=== PATIENT | female | born 1965 | race Caucasian/White ===

== ENCOUNTER → 2017-06-11 | Outpatient (CLI) | payer OTHER ==
--- NOTE | 2017-06-11 10:47 | MM ---
Reason for exam: additional evaluation requested from prior study. Last mammogram was performed 1 year ago. History: Patient is postmenopausal and has history of breast cancer at age 45. Benign US RT VAD breast biopsy of the right breast, November 22, 2011. Benign US left guided VAD of the left breast, April 11, 2011. Malignant US right guided VAD of the right breast, February 15, 2011. Lumpectomy of the right breast, 2010. Chemotherapy, 2010. Radiation therapy of the right breast, 2010. Physical Findings: Nurse did not find any significant physical abnormalities on exam. MG 3D Diag Mammo W/Cad MARIA LUISA Bilateral CC and MLO view(s) were taken. Prior study comparison: June 04, 2016, bilateral MG 3d diag mammo w/cad MARIA LUISA. June 02, 2015, bilateral MG diagnostic mammo w CAD MARIA LUISA. The breast tissue is heterogeneously dense. This may lower the sensitivity of mammography. Post therapy changes on the right breast. These results were verbally communicated with the patient and result sheet given to the patient on 06/11/17. ASSESSMENT: Benign, BI-RAD 2 RECOMMENDATION: Follow-up diagnostic mammogram of both breasts in 1 year.
== END ==
LOC: RADMAMWWP 08:20
PROVIDERS: ATTEND Family Medicine
DX: R92.2 Inconclusive mammogram (principal); Z85.3 Personal history of malignant neoplasm of breast
CPT/HCPCS: G0204; G0279

== ENCOUNTER → 2017-07-23 | Outpatient (CLI) | payer OTHER ==
[2017-07-23 07:53] LABS: Basophils % (A) 1 %; CH 29.6; CHCM 33.1; Eosinophils # (A) 0.1 k/uL (0-0.7); Eosinophils % (A) 2 %; HCT 43.2 % (34.0-46.0); HDW 2.25; HGB 14.1 gm/dL (11.4-16.0); Luc # (Auto) 0.19; Luc % (Auto) 3; Lymphocytes # (A) 2.9 k/uL (1.0-4.8); Lymphocytes % (A) 38 %; MCH 29.4 pg (25.0-35.0); MCHC 32.7 g/dL (31.0-37.0); MCV 89.9 fL (80.0-100.0); Mean Platelet Volume 7.6; Monocytes # (A) 0.3 k/uL (0-1.0); Monocytes % (A) 4 %; Neutrophils % (A) 53 %; RBC 4.81 m/uL (3.80-5.40); RDW 14.3 % (11.5-15.5); WBC 7.6 k/uL (3.8-10.6); WBC (Perox) 7.65
[2017-07-23 12:32] LABS: ALT 39 U/L (9-52); AST 25 U/L (14-36); Alkaline Phosphatase 107 U/L (38-126); Anion Gap 9 mmol/L; Blood Urea Nitrogen 15 mg/dL (7-17); Calcium 9.8 mg/dL (8.4-10.2); Carbon Dioxide 27 mmol/L (22-30); Chloride 106 mmol/L (98-107); Cholesterol 218 mg/dL (<200); Glucose 88 mg/dL (74-99); HDL Cholesterol 54 mg/dL (40-60); Non-African American GFR(MDRD) >60 (>60 ml/min/1.73 sqM); Potassium 5.1 mmol/L (3.5-5.1); Sodium 142 mmol/L (137-145); Total Bilirubin 0.5 mg/dL (0.2-1.3); Total Protein 7.3 g/dL (6.3-8.2)
[2017-07-23 13:20] LABS: Vitamin B12 376 pg/mL (239-931)
== END ==
LOC: LABWHC1 06:43
PROVIDERS: ATTEND Family Medicine
DX: E78.5 Hyperlipidemia, unspecified (principal); E55.9 Vitamin D deficiency, unspecified
CPT/HCPCS: 36415; 80053; 80061; 82306; 82607; 84439; 84443; 85025

== ENCOUNTER → 2018-06-19 | Outpatient (CLI) | payer OTHER ==
--- NOTE | 2018-06-20 15:09 | MM ---
Reason for exam: additional evaluation requested from prior study. Last mammogram was performed 1 year ago. History: Patient is postmenopausal and has history of breast cancer at age 45. Benign US RT VAD breast biopsy of the right breast, November 22, 2011. Benign US left guided VAD of the left breast, April 11, 2011. Malignant US right guided VAD of the right breast, February 15, 2011. Lumpectomy of the right breast, 2010. Chemotherapy, 2010. Radiation therapy of the right breast, 2010. Physical Findings: Nurse did not find any significant physical abnormalities on exam. MG 3D Diag Mammo W/Cad MARIA LUISA Bilateral CC and MLO view(s) were taken. Prior study comparison: June 11, 2017, bilateral MG 3d diag mammo w/cad MARIA LUISA. June 04, 2016, bilateral MG 3d diag mammo w/cad MARIA LUISA. June 02, 2015, bilateral MG diagnostic mammo w CAD MARIA LUISA. The breast tissue is heterogeneously dense. This may lower the sensitivity of mammography. Right breast post therapy change noted. Left biopsy marker noted. These results were verbally communicated with the patient and result sheet given to the patient on 06/19/18. ASSESSMENT: Benign, BI-RAD 2 RECOMMENDATION: Routine screening mammogram of both breasts in 1 year.
== END | disposition home or self-care (01) ==
LOC: RADMAMWWP 14:45
PROVIDERS: ATTEND Family Medicine
DX: R92.2 Inconclusive mammogram (principal)
CPT/HCPCS: 77062; 77066

== ENCOUNTER → 2018-08-06 | Outpatient (CLI) | payer OTHER ==
[2018-08-06 09:30] LABS: ALT 25 U/L (9-52); AST 24 U/L (14-36); Albumin 3.9 g/dL (3.5-5.0); Alkaline Phosphatase 99 U/L (38-126); Anion Gap 7 mmol/L; Blood Urea Nitrogen 17 mg/dL (7-17); Calcium 9.8 mg/dL (8.4-10.2); Carbon Dioxide 30 mmol/L (22-30); Chloride 105 mmol/L (98-107); Cholesterol 222 mg/dL (<200); Glucose 85 mg/dL (74-99); HDL Cholesterol 52 mg/dL (40-60); LDL Cholesterol,Calculated 148 mg/dL (0-99); Potassium 5.1 mmol/L (3.5-5.1); Sodium 142 mmol/L (137-145); Total Bilirubin 0.4 mg/dL (0.2-1.3); Total Protein 7.3 g/dL (6.3-8.2); Triglycerides 108 mg/dL (<150)
[2018-08-06 09:37] LABS: Basophils % (A) 1 %; Eosinophils # (A) 0.1 k/uL (0-0.7); Eosinophils % (A) 2 %; HCT 43.8 % (34.0-46.0); HGB 13.7 gm/dL (11.4-16.0); Lymphocytes # (A) 1.9 k/uL (1.0-4.8); Lymphocytes % (A) 29 %; MCH 27.9 pg (25.0-35.0); MCHC 31.2 g/dL (31.0-37.0); MCV 89.4 fL (80.0-100.0); Mean Platelet Volume 7.2; Monocytes # (A) 0.3 k/uL (0-1.0); Monocytes % (A) 5 %; Neutrophils # (A) 3.9 k/uL (1.3-7.7); Neutrophils % (A) 62 %; Platelet Count 276 k/uL (150-450); RDW 13.7 % (11.5-15.5); WBC 6.4 k/uL (3.8-10.6)
[2018-08-06 09:44] LABS: T4, Free (Free Thyroxine) 1.27 ng/dL (0.78-2.19)
[2018-08-06 09:59] LABS: Appearance,Urine Cloudy (Clear); Bacteria,Urine Occasional /hpf; Bilirubin,Urine Negative (Negative); Blood,Urine Negative (Negative); Color,Urine Yellow; Glucose,Urine (UA) Negative (Negative); Ketones,Urine Negative (Negative); Leukocyte Esterase,Urine Small (Negative); Mucus,Urine Rare /hpf; Nitrite,Urine Negative (Negative); Protein,Urine Negative (Negative); Specific Gravity,Urine 1.018 (1.001-1.035); Squamous Epithelial Cell,Urine 8 /hpf (0-4); Urobilinogen,Urine <2.0 mg/dL (<2.0); WBC,Urine 4 /hpf (0-5)
[2018-08-06 16:38] LABS: Vitamin D 25 Hydroxy 28.8 ng/mL (30.0-100.0)
[2018-08-06 16:47] LABS: Gliadin AB IgA, Unit 3.1 U/mL
[2018-08-06 20:04] LABS: Hemoglobin A1C 5.6 % (4.0-6.0)
== END | disposition home or self-care (01) ==
LOC: LABWHC1 08:12
PROVIDERS: ATTEND Family Medicine
DX: Z00.00 Encounter for general adult medical examination without abnormal findings (principal); K63.5 Polyp of colon; E78.5 Hyperlipidemia, unspecified
CPT/HCPCS: 36415; 80053; 80061; 81001; 82306; 82607; 83036; 83516; 84439; 84443; 85025

== ENCOUNTER → 2019-08-16 | Outpatient (CLI) | payer OTHER ==
--- NOTE | 2019-08-17 13:58 | MM ---
Reason for exam: additional evaluation requested from prior study. Last mammogram was performed 1 year and 2 months ago. History: Patient is postmenopausal and has history of breast cancer at age 45. Benign US RT VAD breast biopsy of the right breast, November 22, 2011. Benign US left guided VAD of the left breast, April 11, 2011. Malignant US right guided VAD of the right breast, February 15, 2011. Lumpectomy of the right breast, 2010. Chemotherapy, 2010. Radiation therapy of the right breast, 2010. Physical Findings: Nurse did not find any significant physical abnormalities on exam. MG 3D Diag Mammo W/Cad MARIA LUISA Bilateral CC and MLO view(s) were taken. Prior study comparison: June 19, 2018, bilateral MG 3d diag mammo w/cad MARIA LUISA. June 11, 2017, bilateral MG 3d diag mammo w/cad MARIA LUISA. The breast tissue is heterogeneously dense. This may lower the sensitivity of mammography. There is a 6mm mass at posterior depth 10-12cm from nipple in the upper outer quadrant. Bilateral biopsy markers. Post therapy change on the right. These results were verbally communicated with the patient and result sheet given to the patient on 08/16/19. ASSESSMENT: Incomplete: need additional imaging evaluation, BI-RAD 0 RECOMMENDATION: Ultrasound of the left breast.
--- NOTE | 2019-08-17 14:01 | USB ---
Reason for exam: additional evaluation requested from abnormal screening. History: Patient is postmenopausal and has history of breast cancer at age 45. Benign US RT VAD breast biopsy of the right breast, November 22, 2011. Benign US left guided VAD of the left breast, April 11, 2011. Malignant US right guided VAD of the right breast, February 15, 2011. Lumpectomy of the right breast, 2010. Chemotherapy, 2010. Radiation therapy of the right breast, 2010. US Breast Limited LT Left limited breast ultrasound including focal area of concern, retroareolar and axilla demonstrates a 0.4 x 0.7 x 0.4cm oval, cystic, complex lesion at 12 o'clock, biopsy recommended, probable correlate to mammographic finding, a 1.2 x 1.1 x 0.8cm nonenlarged lymph nodes at 1 o'clock and a 0.5 x 0.3 x 0.3cm oval, cystic, complex lesion at 3 o'clock, appears as a complicated cyst. These results were verbally communicated with the patient and result sheet given to the patient on 08/16/19. ASSESSMENT: Suspicious, BI-RAD 4 RECOMMENDATION: Ultrasound core biopsy of the left breast. Called Dr. Yee with mammographic findings. Biopsy scheduled for 09/06/19 at 2:00. PRELIMINARY REPORT CALLED AND FAXED TO DR. YEE ON 08/17/19.
== END | disposition home or self-care (01) ==
LOC: RADMAMWWP 07:52
PROVIDERS: ATTEND Family Medicine
DX: R92.8 Other abnormal and inconclusive findings on diagnostic imaging of breast (principal); Z85.3 Personal history of malignant neoplasm of breast
CPT/HCPCS: 77062; 77066

== ENCOUNTER → 2019-08-18 | Outpatient (CLI) | payer OTHER ==
[2019-08-18 09:27] LABS: Basophils % (A) 1 %; Eosinophils # (A) 0.2 k/uL (0-0.7); Eosinophils % (A) 3 %; HCT 43.7 % (34.0-46.0); HGB 13.5 gm/dL (11.4-16.0); Lymphocytes # (A) 1.8 k/uL (1.0-4.8); Lymphocytes % (A) 33 %; MCH 28.9 pg (25.0-35.0); MCV 93.5 fL (80.0-100.0); Mean Platelet Volume 7.2; Monocytes # (A) 0.3 k/uL (0-1.0); Monocytes % (A) 5 %; Neutrophils # (A) 3.1 k/uL (1.3-7.7); Neutrophils % (A) 56 %; Platelet Count 261 k/uL (150-450); RBC 4.67 m/uL (3.80-5.40); RDW 13.5 % (11.5-15.5); WBC 5.5 k/uL (3.8-10.6)
[2019-08-18 10:16] LABS: Appearance,Urine Clear (Clear); Bacteria,Urine Rare /hpf; Bilirubin,Urine Negative (Negative); Blood,Urine Negative (Negative); Color,Urine Yellow; Glucose,Urine (UA) Negative (Negative); Ketones,Urine Negative (Negative); Leukocyte Esterase,Urine Moderate (Negative); Mucus,Urine Rare /hpf; Nitrite,Urine Negative (Negative); PH, Urine 5.5 (5.0-8.0); Protein,Urine Negative (Negative); RBC,Urine 3 /hpf (0-5); Specific Gravity,Urine 1.015 (1.001-1.035); Squamous Epithelial Cell,Urine 7 /hpf (0-4); Urobilinogen,Urine <2.0 mg/dL (<2.0); WBC,Urine 1 /hpf (0-5)
[2019-08-18 16:26] LABS: CA27.29 Breast Ca Marker 38.1 U/mL (0.0-38.5)
[2019-08-18 16:51] LABS: African American GFR (CKD) 97.6 (60.0-200.0); Albumin 4.1 g/dL (3.80-4.90); Albumin/Globulin Ratio 1.58 (1.60-3.17); BUN/Creat Ratio 23.75 Ratio (12.00-20.00); Calcium 9.7 mg/dL (8.7-10.3); Globulin 2.6 g/dL (1.6-3.3); LDL Cholesterol,Calculated 170.4 mg/dL (0.0-131.0); Potassium 4.7 mmol/L (3.5-5.5); Total Bilirubin 0.3 mg/dL (0.3-1.2); Total Protein 6.7 g/dL (6.2-8.2); VLDL Calculation 18.6 mg/dL (5.00-40.00)
[2019-08-18 19:25] LABS: Hemoglobin A1C 5.5 % (4.0-6.0)
== END | disposition home or self-care (01) ==
LOC: LABWHC1 08:35
PROVIDERS: ATTEND Family Medicine
DX: Z00.00 Encounter for general adult medical examination without abnormal findings (principal); C50.211 Malignant neoplasm of upper-inner quadrant of right female breast; E78.5 Hyperlipidemia, unspecified
CPT/HCPCS: 36415; 80053; 80061; 81001; 82607; 83036; 84443; 85025; 86300

== ENCOUNTER → 2019-09-06 | Day surgery (SDC) | payer OTHER ==
[2019-09-06 13:32] VITALS: RESP 16; TEMP 97.9; BMI 28.3
[2019-09-06 14:41] VITALS: BP 113/79; PULSE 62
--- NOTE | 2019-09-06 14:55 | USB ---
ULTRASOUND GUIDED CORE BIOPSY LEFT BREAST: CLINICAL HISTORY: Request for biopsy of 12:00 nodule left breast FINDINGS: The procedure was explained to the patient. The risks, complications, benefits and alternatives were discussed and any questions were answered. Informed consent was obtained. Patient was placed supine on the ultrasound table and prepped and draped in the usual sterile fashion. Utilizing a 14-gauge core biopsy needle, five passes were made into the requested nodule. Surgical clip was placed post procedure. Repeat mammogram demonstrated ideal placement surgical clip. Patient was stable throughout the procedure. Pathology is pending. All elements of maximal barrier technique were utilized. IMPRESSION: 1. Successful ultrasound guided core biopsy of the left breast nodule. Pathology Results: Malignant LEFT BREAST, 12:00, ULTRASOUND GUIDED CORE BIOPSY: Infiltrating ductal carcinoma, Grade 2 ([place]). See note. Recommendation Surgical consult of the left breast. SHAWND
--- NOTE | 2019-09-07 07:33 | MM ---
Reason for exam: additional evaluation requested from abnormal screening. Last mammogram was performed 1 month ago. History: Patient is postmenopausal and has history of breast cancer at age 45. Benign US RT VAD breast biopsy of the right breast, November 22, 2011. Benign US left guided VAD of the left breast, April 11, 2011. Malignant US right guided VAD of the right breast, February 15, 2011. Lumpectomy of the right breast, 2010. Chemotherapy, 2010. Radiation therapy of the right breast, 2010. MG Diagnostic Mammo LT Wo CAD CC and ML view(s) were taken of the left breast. Prior study comparison: August 16, 2019, bilateral MG 3d diag mammo w/cad MARIA LUISA. June 19, 2018, bilateral MG 3d diag mammo w/cad MARIA LUISA. ASSESSMENT: Post procedure mammogram for marker placement RECOMMENDATION: Ultrasound of the left breast in 6 months. PENDING PATHOLOGY RESULTS.
== END ==
LOC: RADUSWWP 12:54
PROVIDERS: ATTEND Family Medicine
DX: C50.912 Malignant neoplasm of unspecified site of left female breast (principal)
CPT/HCPCS: 88305; 77065; 19083; A4648; J2001

== ENCOUNTER → 2019-09-16 | Outpatient (CLI) | payer OTHER ==
[2019-09-16 09:54] VITALS: BP 112/79; PULSE 75; RESP 18; TEMP 98; BMI 29.2
--- NOTE | 2019-09-16 11:15 | P.GSHP ---
History of Present Illness H&P Date: 09/16/19 Chief Complaint: left breast cancer The patient is a 54 year old white female diagnosed on February 2011 at the age of 45 with a tripple negative breast cancer. She had a lumpectomy followed by chemotherapy and radiation. She has had no recurrence of the breast cancer o n the right. She was told this was a stage I. The lymph nodes were not involved. She had a bilateral mammogram on August 16, and was told she needed additional views of the left breast. She had a biopsy on 09-06-19. The pathology revealed an invasive ductal carcinoma. This was grade 2. This is ER/SC positive and HER-2 negative. The patient does not feel anything in her breast. She had genetic testing done, BRCA 1 negative. She had additional testing done to Dr. Hernandez's office and these results will be back in approximately 2-3 weeks. She has no history of any trauma or infection the breast. No abnormal nipple discharge. No skin changes for which she is concerned. Family history: patient: breast cancer at 45 Hormonal History: menarche: 12 , breast fed: yes, first born at 26 menopausal since chemotherapy at 46 BCP: 1 year hormones: none Medical history: Negative Surgical history: 1. Right breast lumpectomy and sentinel node biopsy Social History: smoke: none alcohol: rare drugs: none - Constitutional Comment: hot flashes Constitutional: Reports sweats - EENT Eyes: denies blurred vision, denies pain Ears: deny: decreased hearing, tinnitus Ears, nose, mouth and throat: Denies headache, Denies sore throat - Breasts Breasts: bilateral: as per HPI - Cardiovascular Cardiovascular: Reports high blood pressure, Denies chest pain, Denies shortness of breath - Respiratory Respiratory: Denies cough, Denies 7 - Gastrointestinal Gastrointestinal: Denies abdominal pain, Denies diarrhea, Denies nausea, Denies vomiting - Genitourinary (Female) Genitourinary: Denies dysuria, Denies hematuria - Menstruation Menstruation: Reports postmenopausal - Musculoskeletal Musculoskeletal: Denies myalgias - Integumentary Integumentary: Denies pruritus, Denies rash - Neurological Neurological: Denies numbness, Denies weakness - Psychiatric Psychiatric: Denies anxiety, Denies depression - Endocrine Endocrine: Denies fatigue, Denies weight change - Hematologic/Lymphatic Comment: none - Allergic/Immunologic Allergic/Immunologic: Reports seasonal allergies Past Medical History History of Any Multi-Drug Resistant Organisms: None Reported Smoking Status: Never smoker Medications and Allergies Home Medications Medication Instructions Recorded Confirmed Type Atenolol 25 mg PO DAILY 08/26/19 09/16/19 History Cholecalciferol (Vitamin D3) 2,000 unit PO DAILY 09/16/19 09/16/19 History [Vitamin D3] Cyanocobalamin [Vitamin B-12] 500 mcg PO DAILY 09/16/19 09/16/19 History Tumeric 1 tab PO DAILY 09/16/19 09/16/19 History Allergies Allergy/AdvReac Type Severity Reaction Status Date / Time No Known Allergies Allergy Verified 09/16/19 09:56 Surgical - Exam Vital Signs Temp Pulse Resp BP Pulse Ox 98.0 F 75 18 112/79 97 09/16/19 09:48 09/16/19 09:48 09/16/19 09:48 09/16/19 09:48 09/16/19 09:48 BMI 29.2 - General well developed - Eyes normal ocular movement - ENT no hearing loss, no congestion - Neck no masses, trachea midline, no lymphadectomy - Respiratory normal expansion - Cardiovascular Rhythm: regular Heart Sounds: normal: S1, S2 - Abdomen Abdomen: soft, non tender, no guarding, no rigid, no rebound - Integumentary normal turgor - Neurologic no disoriented, no combative - Musculoskeletal normal gait, normal posture - Psychiatric oriented to time, oriented to person, oriented to place, speech is normal, memory intact Breast examination: Right breast: Smaller than the left breast related to prior lumpectomy and radiation treatment, well-healed scar from prior lumpectomy no evidence of recurrent disease, fibrocystic breast changes no dominant masses or nodules of concern Right axilla: No adenopathy of concern Left breast: Larger than the right breast, multiple positional exams ecchymosis in the upper outer quadrant area related to prior biopsy, slight fullness may be related to small hematoma from biopsy Left axilla: No adenopathy of concern Bra size: 36 D Ptosi grade 2 Results Mammogram and ultrasound results reviewed Reviewed with radiologist Assessment and Plan Assessment: Impression: 1. Status post stage I right breast cancer approximately 8 years ago treated with lumpectomy/radiation/chemotherapy/ 2. New diagnosis of stage I a left breast cancer 3. Discrepancy in the size of the breast 4. Fibrocystic breast changes 5. Postmenopausal which occurred at the time of chemotherapy approximately 8 years ago. Plan: 1. genetic testing ordered 2. patient at this time desires bilateral mastectomy and reconstruction 3. appointment with plastic surgery Long discussion with patient and her friend. Risk and benefits of lumpectomy, mastectomy, possible reconstruction discussed. Patient understands and at this time is very adamant about bilateral mastectomy with reconstruction. 60 minutes spent with the patient. > 50% face time. CC: Dr. Yee
== END | disposition home or self-care (01) ==
LOC: WWCWWP 09:14
PROVIDERS: ATTEND Surgery
DX: Z53.9 Procedure and treatment not carried out, unspecified reason (principal)

== ENCOUNTER → 2019-10-23 | Outpatient (CLI) | payer OTHER ==
--- NOTE | 2019-10-25 09:47 | XR ---
EXAMINATION TYPE: XR chest 2V DATE OF EXAM: 10/23/2019 COMPARISON: 05/26/2012 HISTORY: Shortness of breath TECHNIQUE: Frontal and lateral views of the chest are obtained. FINDINGS: Scattered senescent parenchymal changes noted. Hyperinflation compatible with COPD. No evidence for infiltrate. No evidence for atelectasis. Heart size is stable. Mediastinal structures are stable and grossly unremarkable. No evidence for hilar prominence. Degenerative changes dorsal spine. IMPRESSION: 1. No evidence for acute pulmonary disease.
== END | disposition home or self-care (01) ==
LOC: RADXRMAIN 09:40
PROVIDERS: ATTEND Family Medicine
DX: Z01.818 Encounter for other preprocedural examination (principal); C50.912 Malignant neoplasm of unspecified site of left female breast
CPT/HCPCS: 71046

== ENCOUNTER → 2019-10-25 | Outpatient (CLI) | payer OTHER ==
[2019-10-25 07:53] LABS: Basophils % (A) 0 %; Eosinophils # (A) 0.1 k/uL (0-0.7); Eosinophils % (A) 2 %; HCT 41.2 % (34.0-46.0); HGB 13.4 gm/dL (11.4-16.0); Lymphocytes % (A) 33 %; MCH 29.4 pg (25.0-35.0); MCHC 32.5 g/dL (31.0-37.0); MCV 90.3 fL (80.0-100.0); Mean Platelet Volume 7.9; Monocytes # (A) 0.3 k/uL (0-1.0); Monocytes % (A) 5 %; Neutrophils # (A) 3.5 k/uL (1.3-7.7); Neutrophils % (A) 58 %; Platelet Count 283 k/uL (150-450); RBC 4.57 m/uL (3.80-5.40); RDW 13.2 % (11.5-15.5); WBC 6.1 k/uL (3.8-10.6)
[2019-10-25 08:04] LABS: INR 0.9 (<1.2)
[2019-10-25 11:23] LABS: African American GFR (CKD) 96.9 (60.0-200.0); Albumin 4.2 g/dL (3.80-4.90); Albumin/Globulin Ratio 1.75 (1.60-3.17); Anion Gap 6.3 mmol/L (4.00-12.00); BUN/Creat Ratio 32.5 Ratio (12.00-20.00); Calcium 9.3 mg/dL (8.7-10.3); Carbon Dioxide 26.7 mmol/L (21.6-31.8); Chol/HDL Ratio 3.68; Globulin 2.4 g/dL (1.6-3.3); LDL Cholesterol,Calculated 148.2 mg/dL (0.0-131.0); Non-African American GFR(CKD) 83.6 (60.0-200.0); Potassium 4.7 mmol/L (3.5-5.5); Total Bilirubin 0.4 mg/dL (0.2-1.2); Total Protein 6.6 g/dL (6.2-8.2); VLDL Calculation 17.8 mg/dL (5.00-40.00)
[2019-10-25 12:46] LABS: Hemoglobin A1C 5.4 % (4.0-6.0)
== END | disposition home or self-care (01) ==
LOC: LABWHC1 06:54
PROVIDERS: ATTEND Family Medicine
DX: Z01.812 Encounter for preprocedural laboratory examination (principal); C50.912 Malignant neoplasm of unspecified site of left female breast; E78.5 Hyperlipidemia, unspecified
CPT/HCPCS: 36415; 80053; 80061; 83036; 84443; 85025; 85610

== ENCOUNTER 2019-10-27 07:03 | Observation (INO) | payer OTHER ==
[2019-10-25 09:50] VITALS: BMI 29.2
[~2019-10-27 07:03] MED LIST: MIDAZOLAM 2 MG/2 ML VIAL IV PRN; Pre Op ABX Message 1 EACH MISC MISCELLANE ONE
[2019-10-27] MEDS: LACTATED RINGERS 1,000 ML IV SCH ×2 (07:37→08:34)
[2019-10-27] MEDS ORDERED: LIDOCAINE 1% 20 ML VIAL (10MG/ML) FOR IV START INTRADERMA ONE (07:37)
[2019-10-27] MEDS: ONDANSETRON 4 MG/2 ML VIAL IVP ONE ×2 (07:48→16:42)
[2019-10-27] MEDS: DEXAMETHASONE SOD PHOSPHATE 10 MG/ML 1 ML VIAL IV ONE ×2 (07:48→16:42)
[2019-10-27] MEDS: SCOPOLAMINE 1.5MG/72HR PATCH TRANSDERM ONE ×2 (07:53→16:42)
[2019-10-27] MEDS: HEPARIN SODIUM,PORCINE 5,000 UNIT/ML 1 ML VIAL SQ ONE ×2 (07:53→16:41)
[2019-10-27] MEDS ORDERED: fentaNYL (PF) 50 MCG/ML 2 ML AMP IVP ONE (08:20)
[2019-10-27] MEDS ORDERED: MIDAZOLAM 2 MG/2 ML VIAL IVP ONE (08:20)
[2019-10-27] MEDS ORDERED: PROPOFOL 10 MG/ML 20 ML VIAL IV ONE (08:31)
[2019-10-27] MEDS ORDERED: fentaNYL (PF) 50 MCG/ML 2 ML AMP ONE (08:31)
[2019-10-27] MEDS ORDERED: KETOROLAC 30 MG/ML 1 ML VIAL ONE (08:31)
[2019-10-27] MEDS ORDERED: SUCCINYLCHOLINE CHLORIDE 100 MG/5 ML SYR IV ONE (08:31)
[2019-10-27] MEDS ORDERED: MIDAZOLAM 2 MG/2 ML VIAL ONE (08:31)
[2019-10-27] MEDS ORDERED: LIDOCAINE 1% INJ 10MG/ML (20 ML MDV) ONE (08:31)
--- NOTE | 2019-10-27 08:32 | NM ---
EXAMINATION TYPE: NM sentinel node injection DATE OF EXAM: 10/27/2019 COMPARISON: Left breast mammogram August 29, 2019 and older studies. HISTORY: Left-sided breast cancer on ultrasound-guided core biopsy. TECHNIQUE AND FINDINGS: The procedure of sentinel lymph node injection was explained to the patient. The benefits, alternatives, and risks were discussed. An informed consent was then obtained. Overlying skin is cleaned with sterile alcohol. Following this, 540 uCi Tc99m Tilmanocept was inject ed in the upper outer aspect of the left nipple intradermally. The patient tolerated the procedure well without any immediate complication. The patient was kept in the radiology department for short stay after the procedure and then taken to surgery for surgical p rocedure what is presumed intraoperative gamma probe will be used for sentinel lymph node detection. IMPRESSION: Left breast radiotracer injection for sentinel node localization as above.
[2019-10-27] MEDS ORDERED: ceFAZolin 1,000 MG VIAL IVPB ONE (08:37)
[2019-10-27] MEDS ORDERED: METHYLENE BLUE 50 MG/10 ML AMPUL INJ ONE (09:17)
--- NOTE | 2019-10-27 09:30 | P.ANPRN ---
Procedure Note - Anesthesia - Nerve Block Performed Left Other (see comment) Single Time Out Performed: Yes (819 pecs 1 &2) Date of Procedure: 10/27/19 Procedure Start Time: Procedure Stop Time: :24 Location of Patient: PreOp Indication: Acute Post-Operative Pain, Requested by Surgeon Specifically requested for management of pain by DrWilver: Siddharth Tavarez Sedation Type: Sedate with meaningful contact maintained Preparation: Sterile Prep, Sterile Dressing Position: Supine Catheter: None Needle Types: Pajunk Needle Gauge: 20 Ultrasound used to visualize needle placement: Yes Ultrasound used to observe medication spread: Yes Injectate: 0.5% Ropivacaine (see comment for volume) (Ropi 0.25% 20cc with decadron 4mg) Blood Aspirated: No Pain Paresthesia on Injection Noted: No Resistance on Injection: Normal Image Stored and Saved: Yes Events: Uneventful and Well Tolerated Right Other (see comment) Single Time Out Performed: Yes (819 PECS 1 &2) Date of Procedure: 10/27/19 Procedure Start Time: Procedure Stop Time: 08:30 Location of Patient: PreOp Indication: Acute Post-Operative Pain, Requested by Surgeon Specifically requested for management of pain by Dr.: Siddharth Tavarez Sedation Type: Sedate with meaningful contact maintained Preparation: Sterile Prep, Sterile Dressing Position: Supine Catheter: None Needle Types: Pajunk Needle Gauge: 20 Ultrasound used to visualize needle placement: Yes Ultrasound used to observe medication spread: Yes Injectate: 0.5% Ropivacaine (see comment for volume) (Ropi 0.25% 20cc with decadron 4mg) Blood Aspirated: No Pain Paresthesia on Injection Noted: No Resistance on Injection: Normal Image Stored and Saved: Yes Events: Uneventful and Well Tolerated
[2019-10-27] MEDS ORDERED: LACTATED RINGERS 1,000 ML IV ONE ×3 (09:57→13:25)
[2019-10-27] MEDS ORDERED: NALOXONE 0.4 MG/ML 1 ML VIAL IV PRN (11:38)
[2019-10-27] MEDS ORDERED: ONDANSETRON 4 MG/2 ML VIAL IVP PRN (11:38)
--- NOTE | 2019-10-27 11:44 | P.OP ---
Date of Procedure: 10/27/19 Procedure(s) Performed: PREOPERATIVE DIAGNOSIS: Bleftral breast cancer POSTOPERATIVE DIAGNOSIS: Same PROCEDURE: Bilateral simple mastectomy with sentinel lymph node biopsy left breast with concurrent reconstruction SURGEON: Nina EBL: Minimal ANESTHESIA: General COMPLICATIONS: None OPERATIVE PROCEDURE: Patient was placed on the operating room table in the supine position. 2 mL of methylene blue was injected into the left subareolar space. The breast was then massaged for 5 minutes. The upper torso anteriorly was prepped and draped in usual sterile fashion. The right side was first addressed. A skin marker was used to draw out a circular incision around the areola. This incision was then made using the scalpel. Dissection through the subcutaneous tissues took place using electrocautery down to the chest wall circumferentially. The breast was removed from the chest wall at that time. The Ligasure was used for small visible vessels. No bleeding was encountered. The left side was then addressed. A small curvilinear incision in the left axilla took place over the hot spot identified by neoprobe. The subcutaneous tissues were divided using electrocautery and blunt dissection. A total of 3 hot lymph nodes were identified and removed. the first lymph node was blue in color as well. Clinically these appeared benign and were normal size and were normal by palpation. In a similar fashion the skin marker was used to draw out the proposed incision around the areola including the previous scar in the left periareolar location. The incision was incised using a scalpel. The skin hooks were utilized and the flaps were raised circumferentially using electrocautery down to the chest wall. The breast was again removed from the chest wall using electrocautery. Small vessels were ligated using the LigaSure. No bleeding was seen. The case was then again handed off to Dr. Tavarez for formal closure and tissue air control/anti air warfare officer placement. At that point I exited the room. The family was informed of the progress of surgery. DISPOSITION: Patient to remain in the operating for completion and closure by Dr. Tavarez.
[2019-10-27] MEDS ORDERED: ONDANSETRON 4 MG/2 ML VIAL IVP ONE (13:01)
[2019-10-27] MEDS: HYDROmorphone 0.5 MG/0.5 ML SYRINGE IVP PRN ×2 (13:20→14:50)
[2019-10-27] MEDS ORDERED: PROMETHAZINE INJ 25 MG/ML 1 ML VIAL IVPB ONE (15:00)
[2019-10-27] MEDS ORDERED: hydrALAZINE HCL 20 MG/ML 1 ML VIAL IVP PRN (16:39)
[2019-10-27] MEDS: D5-0.45% NACL WITH KCL 20MEQ/L 1,000 ML IV SCH ×2 (16:42→21:25)
[2019-10-27] MEDS ORDERED: ALPRAZolam 0.25 MG TAB PO PRN (17:11)
--- NOTE | 2019-10-27 17:13 | P.CONS ---
History of Present Illness - Reason for Consult Consult date: 10/27/19 - History of Present Illness this is a 54 years old female patient of Dr. Yee with past medical history of hypertension concern for elective bilateral mastectomy with Dr. Wood. patient has a history of breast cancer status post right breast lumpectomy had an abnormal mammogram on the left than on 6 mm in size patient was planned to have bilateral mastectomy with sentinel lymph node biopsyleft breast with concurrent reconstruction. Patient examined postoperatively appears to be sedated with medication denies any chest pain or shortness of breath or numbness or swelling in her lower extremity. Patient denies any headache dizziness history of change in bowel habits. On examination of the vitals, pulse is 69 blood pressure 172/94, saturating at 100 on 2 L.no blood work to evaluate, was consulted for medical management Review of Systems Constitutional: Denies chills, Denies fever, Denies lethargy, Denies malaise, Denies poor appetite, Denies weakness, Denies weight loss Eyes: denies decreased vision, denies diplopia, denies discharge, denies pain Ears: deny: decreased hearing Ears, nose, mouth and throat: Denies dental pain, Denies headache, Denies nasal discharge, Denies nose pain Cardiovascular: endorses chest painpost surgery, Denies decreased exercise tolerance, Denies edema, Denies high blood pressure, Denies irregular heart beat, Denies palpitations, Denies paroxysmal nocturnal dyspnea, Denies rapid heart beat, Denies shortness of breath Respiratory: Denies congestion, Denies cough, Denies cough with sputum, Denies dyspnea, Denies home oxygen, Denies wheezing Gastrointestinal: Denies abdominal pain, Denies change in bowel habits, Denies coffee ground emesis, Denies early satiety, Denies excessive gas, Denies heartburn, Denies hematemesis, Denies hematochezia, Denies loss of appetite, Denies nausea, Denies vomiting Genitourinary: Denies dysuria, Denies flank pain, Denies kidney stones, Denies menorrhagia, Denies urgency, Denies urinary frequency Musculoskeletal: Denies gait dysfunction, Denies limitation of motion, Denies morning stiffness, Denies muscle cramps Integumentary: Denies rash, Denies wounds, Denies brittle nails, Denies change in hair/nails, Denies darkening of skin Neurological: Denies balance difficulties, Denies change in speech, Denies double vision, Denies gait dysfunction, Denies loss of vision, Denies motor disturbance, Denies numbness, Denies paralysis, Denies paresthesias, Denies seizures Psychiatric: Denies anxiety, Denies depression Endocrine: Denies excessive sweating, Denies excessive thirst, Denies high blood sugars, Denies palpitations Hematologic/Lymphatic: Denies easy bruising, Denies lymphadenopathy Past Medical History Past Medical History: Cancer, Hypertension Additional Past Medical History / Comment(s): breast cancer History of Any Multi-Drug Resistant Organisms: None Reported Past Surgical History: Breast Surgery, Tubal Ligation Additional Past Surgical History / Comment(s): rt breast lumpectomy Past Anesthesia/Blood Transfusion Reactions: Motion Sickness, Postoperative Nausea & Vomiting (PONV) Additional Past Anesthesia/Blood Transfusion Reaction / Comm: "takes me longer to wake up" Past Psychological History: No Psychological Hx Reported Smoking Status: Never smoker Past Alcohol Use History: Rare Past Drug Use History: None Reported - Past Family History Mother Family Medical History: No Reported History Medications and Allergies Home Medications Medication Instructions Recorded Confirmed Type Atenolol 25 mg PO DAILY 08/26/19 10/27/19 History Cholecalciferol (Vitamin D3) 2,000 unit PO DAILY 09/16/19 10/25/19 History [Vitamin D3] Cyanocobalamin [Vitamin B-12] 1,000 mcg PO DAILY 09/16/19 10/25/19 History Turmeric Root Extract [Turmeric] 1,053 mg PO DAILY 10/25/19 10/27/19 History Allergies Allergy/AdvReac Type Severity Reaction Status Date / Time No Known Allergies Allergy Verified 10/27/19 07:19 Physical Exam Vitals: Vital Signs Temp Pulse Pulse Resp BP BP Pulse Ox 10/27/19 15:42 97.6 F 69 15 172/94 100 10/27/19 15:20 62 15 128/63 100 10/27/19 14:50 64 18 152/76 100 10/27/19 14:20 56 L 16 127/72 100 10/27/19 13:49 58 L 16 130/74 98 10/27/19 13:34 56 L 14 131/72 99 10/27/19 13:19 73 16 123/65 99 10/27/19 13:04 65 16 122/60 98 10/27/19 12:49 96.9 F L 67 12 118/56 94 L 10/27/19 07:26 98.3 F 70 16 114/68 95 Intake and Output 10/27/19 10/27/19 10/27/19 06:59 14:59 22:59 Intake Total 2000 700 Output Total 150 Balance 1850 700 Intake: IV 1999 700 Output: Urine 100 Estimated Blood Loss 50 Other: Weight 74.5 kg 74.5 kg - Constitutional General appearance: cooperative, no acute distress, obese - EENT Eyes: anicteric sclerae, PERRLA, normal appearance ENT: hearing grossly normal - Neck Neck: no lymphadenopathy, normal ROM, no other, no rigidity, no stridor, no thyromegaly - Respiratory Respiratory: bilateral: CTA, negative: diminished, dullness, rales, rhonchi, chest wall wrapped with bandages, drains in place - Cardiovascular Rhythm: regular Heart sounds: normal: S1, S2 Abnormal Heart Sounds: no systolic murmur, no diastolic murmur, no rub, no S3 Gallop, no S4 Gallop, no click, no other - Gastrointestinal General gastrointestinal: normal bowel sounds, soft - Integumentary Integumentary: no rash - Neurologic Neurologic: CNII-XII intact - Musculoskeletal Musculoskeletal: , strength equal bilaterally - Psychiatric Psychiatric: A&O x's 3, appropriate affect Assessment and Plan Plan: #1 postoperative day 0 bilateral simple mastectomy. pain control with Dilaudid 1 mg every 3 hours incentive spirometry for pulmonary profile exes continue heparin subcu every 8 hours for DVT prophylaxis #2 hypertension continue atenolol 25 mg by mouth daily. Hydralazine 10 mg IV every 6 as needed for systolic more than 160 #3 anxiety Xanax ordered 0.25 mg by mouth twice a day as needed for anxiety #4 DVT prophylaxis with heparin 5000 subcu every 8 hours #5 Code status full code Thank you for the consult. I'll be happy to assist in patient's medical treatment patient to the hospital
[2019-10-27] MEDS: HEPARIN SODIUM,PORCINE 5,000 UNIT/ML 1 ML VIAL SQ SCH ×2 (17:46→23:57)
[2019-10-27] MEDS: HYDROmorphone 1 MG/ML 1 ML SYRINGE IVP PRN ×2 (17:52→21:27)
[2019-10-27] MEDS ORDERED: BENZOCAINE/MENTHOL LOZENG 1 EACH LOZENGE MUCOUS MEM PRN (19:16)
[2019-10-27] MEDS: DOCUSATE 100 MG CAP PO SCH (21:25)
--- NOTE | 2019-10-27 23:39 | OP ---
OPERATIVE REPORT DATE OF SURGERY: October 27, 2019. SURGEON: Siddharth Tavarez M.D. PREOPERATIVE DIAGNOSES: 1. Acquired loss right and left breast. 2. Left breast cancer. POSTOPERATIVE DIAGNOSES: 1. Acquired loss right and left breast. 2. Left breast cancer. OPERATIVE PROCEDURES: 1. Immediate reconstruction right breast following mastectomy with insertion of tissue division service manager and subsequent outpatient expansion. 2. Immediate reconstruction left breast following mastectomy with insertion of tissue division service manager and subsequent outpatient expansion. 3. Implantation of reconstructive graft for right and left breast reconstruction. OPERATIVE INDICATIONS: The patient is a 54-year-old female who is to undergo bilateral mastectomy procedures. The patient has cancer involving her left breast that is invasive. Approximately 10 years ago, the patient had cancer involving the right breast was treated with lumpectomy and axillary lymph node dissection and radiation therapy and chemo. She has not had any problems related to the right breast, but due to the new tumor on the left breast has desired to proceed with bilateral mastectomy procedures. She was referred to my care for breast reconstruction as she desires reconstruction to immediately following her mastectomies. She has elected upon a tissue division service manager style technique. She understands the staged nature of reconstructive surgery, including potential risks and complications related with this surgery including, but not limited to, seroma, hematoma, wound healing problems, and postoperative infection. In addition, the patient understands there are potentially greater complications related to the right side due to her past history of radiation therapy, most importantly were related to wound healing problems. She has requested I perform the surgery. OPERATIVE PROCEDURE SUMMARY: The patient is seen presurgical area. Markings made. Procedure reviewed. All questions answered. She was transported to the operating room where she was placed in supine position. Following induction general tracheal anesthesia, the patient is prepped and draped in usual fashion Dr. Wood and his surgical team proceeded with the right-sided simple mastectomy with left sentinel lymph node excision and left simple mastectomy. When these procedures were completed, I then entered the room. The patient was under general endotracheal anesthesia, supine position. Sponge and needle counts of all procedure from prior procedures were correct. Moist laparotomy sponges were removed from the right and left breast mastectomy sites. The cavities irrigated. Hemostasis was excellent. Starting on the left side at this time, the pectoralis major muscle was identified where it joined the chest wall on the lateral aspect loose areolar connective tissue divided with cautery. This allowed entry into the potential plane between the pectorals major minor muscles bluntly developed medial attachment fibers of the pectorals major muscle to ribs released with cautery and all inferior attachments. To obtain sufficient muscular coverage of the division service manager for reconstruction required additional muscle tissue. Inferomedially, rectus abdominis muscle and fascia inferior laterally external abdominal oblique muscle fascia and laterally serrated anterior muscle fascia were all elevated with careful dissection via cautery until reaching sufficient size submuscular reconstructive site. Hemostasis maintained with cautery. Irrigation was performed. The site was packed open. Moist laparotomy sponges. Attention turned towards the right side. Again the pectoralis major muscle was identified where it joined the chest wall laterally. Loose areolar connective tissue divided with cautery here. This allowed entry into the potential plane between the pectoralis major minor muscles which was bluntly developed. Medial attachment fibers of the pectoralis major muscle to ribs released with cautery. All inferior attachments released. Again to obtain sufficient muscle coverage for reconstructive purposes required additional muscle tissue, inferior medially rectus abdominis muscle fascia inferior laterally, external abdominal oblique muscle fascia and laterally serrated anterior muscle fascia were all elevated with cauterization until obtaining sufficient submuscular reconstructive plane in a comparable fashion to the left side. The irrigations performed. Hemostasis was excellent. The cavities were checked for symmetry. Minor adjustments made. Once symmetry was optimized, the cavities were measured, gloves changed, and the tissue division service manager opened on the field. Both expanders were from the [employer] high-profile model line with reference number [id number]. The right-sided serial number was [id number]. The left-sided serial number was [id number]. The expanders were only handled by the surgeon. The right-sided division service manager was placed first, first removing all air from the division service manager instilling 50 mL 0.9 normal saline. The division service manager was irrigated with saline on the external surfaces and inserted in the reconstructive cavity. Orientation was assured under direct vision. Gloves changed. The left-sided division service manager opened on the field. Again, all air extracted from the division service manager was irrigated with saline 50 mL 0.9 normal saline instilled, it was inserted in the reconstructive submuscular pocket created. Orientation assured under direct vision. Symmetrical position of the expanders was obtained. The muscle tissue could not be closed over either division service manager without significant tension. Therefore SurgiMend reconstructive graft was opened on the field to span the gap and buttress the muscle flap tissue. The SurgiMend measured 10 x 15 cm. It was thin and fenestrated. The SurgiMend was revitalized room temperature saline. Once ready, it was divided into 2 equal portions across the transverse midline and placed in the reconstructive cavity on the right left side, spanning the area where the muscle could not be approximated overlapping the muscle for a buttress effect. The SurgiMend was inset to the both sides using interrupted and short running 3-0 Vicryl sutures. Complete coverage of the division service manager obtained. Additional fluid was now instilled into each division service manager until each division service manager measured 200 mL. Irrigation was performed. Hemostasis remained excellent. A 19 round Ki channel drains opened on the field, one inserted into each reconstructive cavity and brought out through separate stab incisions, anterior lateral chest wall and sutured in place with 2-0 Prolene. Drains were connected to full length and connected to bulb suction at the end of the procedure. The mastectomy sites were now closed approximating the circumareolar incisions in a pursestring fashion using a deep dermal 2-0 Prolene pursestring suture. Then finally approximate the epidermal edges with interrupted tracie. The patient's axillary lymph node, sentinel lymph node incision site was now closed approximating Annette's layer using inverted interrupted 4-0 Monocryl and then closure of the deep dermis using inverted interrupted 4-0 Monocryl and completed the skin closure with running 5-0 Prolene. Surgical caballero cleansed with saline and dried. Bulb connected to close bulb suction and patent. Postop bandages placed using sterile 1 inch paper tape over the suture to repair in the axilla and then Kerlix squares all secured with Medipore 3M tape. The patient is awakened from anesthetic, extubated in the operating room, transferred to recovery room in good condition with stable vital signs. ESTIMATED BLOOD LOSS: 50 mL. There were no complications. MMODL / IJN: [id number] /
[2019-10-28] MEDS: HYDROmorphone 1 MG/ML 1 ML SYRINGE IVP PRN ×7 (00:56→23:47)
[2019-10-28] MEDS: LACTATED RINGERS 1,000 ML IV SCH (04:08)
[2019-10-28] MEDS: D5-0.45% NACL WITH KCL 20MEQ/L 1,000 ML IV SCH ×4 (05:00→23:43)
[2019-10-28] MEDS: HEPARIN SODIUM,PORCINE 5,000 UNIT/ML 1 ML VIAL SQ SCH ×3 (07:40→23:44)
[2019-10-28] MEDS: PANTOPRAZOLE 40 MG/10 ML VIAL IV SCH (07:40)
[2019-10-28] MEDS: DOCUSATE 100 MG CAP PO SCH ×2 (07:41→21:25)
[2019-10-28] MEDS: ATENOLOL 25 MG TAB PO SCH (07:41)
[2019-10-28] MEDS: HYDROcodone/APAP 5-325MG 1 EACH TAB PO PRN ×3 (10:54→18:29)
--- NOTE | 2019-10-28 13:36 | P.PN ---
<Sun De Jesus - Last Filed: 10/28/19 13:12> Subjective Progress Note Date: 10/28/19 CHIEF COMPLAINT: breast cancer HISTORY OF PRESENT ILLNESS: 54 -year-old female who is status post bilateral simple mastectomy with sentinel lymph node biopsy of left breast with concurrent reconstruction. Postoperative day #1. Patient examined at the bedside this morning. She reports her pain is 5 out of 10 at the time of my examination. she is tolerating diet. Denies nausea or vomiting. Minimal drainage from left MARY drain. Small amount of sanguinous drainage from right MARY drain. Vital signs stable. She is afebrile. PHYSICAL EXAM: VITAL SIGNS: Reviewed. GENERAL: Well-developed in no acute distress. HEENT: No sclera icterus. Extraocular movements grossly intact. Moist buccal mucosa. Head is atraumatic, normocephalic. ABDOMEN: Soft. Nondistended. Nontender. CHEST: Dressings clean dry and intact. Minimal drainage from left MARY drain. Small amount of sanguinous drainage from right MARY drain. NEUROLOGIC: Alert and oriented. Cranial nerves II through XII grossly intact. ASSESSMENT: 1. Breast cancer, status post bilateral simple mastectomy with sentinel lymph node biopsy of left breast with concurrent reconstruction PLAN: Pain control Continue diet as tolerated CBC in AM Monitor drainage from MARY site Nurse practitioner note has been reviewed by physician. Signing provider agrees with the documented findings, assessment, and plan of care. Objective - Vital Signs Vital signs: Vital Signs Temp 98.3 F 10/28/19 08:35 Pulse 59 L 10/28/19 01:05 Resp 16 10/28/19 08:35 BP 155/79 10/28/19 08:35 Pulse Ox 99 10/28/19 08:35 Intake & Output 10/27/19 10/28/19 10/28/19 18:59 06:59 18:59 Intake Total 2700 1740 Output Total 170 260 50 Balance 2530 1480 -50 Weight 74.5 kg Intake: IV 2700 Intake, IV Titration 1500 Amount D5-0.45% NaCl with KCl 1500 20Meq/l 1,000 ml @ 125 mls/hr IV .Q8H [facility] Rx#: [id number] Oral 240 Output: Drainage 20 60 50 Left MARY 20 0 0 Right 0 60 50 Urine 100 200 Estimated Blood Loss 50 Other: Voiding Method Toilet # Voids 2 <Carlos Wood - Last Filed: 10/28/19 16:06> Subjective as above. Pain slightly increased today. Suspect the patient's block is wearing off. Continue [place] and Dilaudid. We'll add Motrin. Patient's left drain required stripping and is now working better.patient's flaps bilaterally are free of ischemic changes. Objective - Vital Signs Vital signs: Vital Signs Temp 98 F 10/28/19 13:35 Pulse 57 L 10/28/19 13:35 Resp 17 10/28/19 13:35 BP 122/72 10/28/19 13:35 Pulse Ox 95 10/28/19 13:35 Intake & Output 10/27/19 10/28/19 10/28/19 18:59 06:59 18:59 Intake Total 2700 1740 1000 Output Total 170 260 50 Balance 2530 1480 950 Weight 74.5 kg Intake: IV 2700 Intake, IV Titration 1500 1000 Amount D5-0.45% NaCl with KCl 1500 1000 20Meq/l 1,000 ml @ 125 mls/hr IV .Q8H [facility] Rx#: [id number] Oral 240 Output: Drainage 20 60 50 Left MARY 20 0 0 Right 0 60 50 Urine 100 200 Estimated Blood Loss 50 Other: Voiding Method Toilet # Voids 2 2
--- NOTE | 2019-10-28 16:48 | P.PN ---
Subjective Progress Note Date: 10/28/19 this is a 54 years old female patient of Dr. Yee with past medical history of hypertension concern for elective bilateral mastectomy with Dr. Wood. patient has a history of breast cancer status post right breast lumpectomy had an abnormal mammogram on the left than on 6 mm in size patient was planned to have bilateral mastectomy with sentinel lymph node biopsyleft breast with concurrent reconstruction. Patient examined postoperatively appears to be sedated with medication denies any chest pain or shortness of breath or numbness or swelling in her lower extremity. Patient denies any headache dizziness history of change in bowel habits. On examination of the vitals, pulse is 69 blood pressure 172/94, saturating at 100 on 2 L.no blood work to evaluate, was consulted for medical management 10/28 patient doing well as to complains of significant pain in the chest. Right drain noticed to have50 mL IN the past 8 hours no output noted from the left MARY. Patient continue on significant pain control with Dilaudid ROS Constitutional: Denies chills, Denies fever, Denies lethargy, Denies malaise, Denies poor appetite, Denies weakness, Denies weight loss Eyes: denies decreased vision, denies diplopia, denies discharge, denies pain Ears: deny: decreased hearing Ears, nose, mouth and throat: Denies dental pain, Denies headache, Denies nasal discharge, Denies nose pain Cardiovascular: Denies chest pain, Denies decreased exercise tolerance, Denies edema, Denies high blood pressure, Denies irregular heart beat, Denies palpitations, Denies paroxysmal nocturnal dyspnea, Denies rapid heart beat, Denies shortness of breath Respiratory: Denies congestion, Denies cough, Denies cough with sputum, Denies dyspnea, Denies home oxygen, Denies wheezing Gastrointestinal: Denies abdominal pain, Denies change in bowel habits, Denies coffee ground emesis, Denies early satiety, Denies excessive gas, Denies heartburn, Denies hematemesis, Denies hematochezia, Denies loss of appetite, Denies nausea, Denies vomiting Genitourinary: Denies dysuria, Denies flank pain, Denies kidney stones, Denies menorrhagia, Denies urgency, Denies urinary frequency Musculoskeletal: sore muscles of the chestpost surgery and pelvis with patient is getting heparin shot Integumentary: Denies rash, Denies wounds, Denies brittle nails, Denies change in hair/nails, Denies darkening of skin Neurological: Denies balance difficulties, Denies change in speech, Denies double vision, Denies gait dysfunction, Denies loss of vision, Denies motor disturbance, Denies numbness, Denies paralysis, Denies paresthesias, Denies seizures Psychiatric: Denies anxiety, Denies depression Endocrine: Denies excessive sweating, Denies excessive thirst, Denies high blood sugars, Denies palpitations Hematologic/Lymphatic: Denies easy bruising, Denies lymphadenopathy Objective - Vital Signs Vital signs: Vital Signs Temp 98 F 10/28/19 13:35 Pulse 57 L 10/28/19 13:35 Resp 17 10/28/19 13:35 BP 122/72 10/28/19 13:35 Pulse Ox 95 10/28/19 13:35 Intake & Output 10/27/19 10/28/19 10/28/19 18:59 06:59 18:59 Intake Total 2700 1740 1000 Output Total 170 260 50 Balance 2530 1480 950 Weight 74.5 kg Intake: IV 2700 Intake, IV Titration 1500 1000 Amount D5-0.45% NaCl with KCl 1500 1000 20Meq/l 1,000 ml @ 125 mls/hr IV .Q8H [facility] Rx#: [id number] Oral 240 Output: Drainage 20 60 50 Left MARY 20 0 0 Right 0 60 50 Urine 100 200 Estimated Blood Loss 50 Other: Voiding Method Toilet # Voids 2 2 - Exam - Constitutional General appearance: cooperative, no acute distress, obese - EENT Eyes: anicteric sclerae, PERRLA, normal appearance ENT: hearing grossly normal - Neck Neck: no lymphadenopathy, normal ROM, no other, no rigidity, no stridor, no thyromegaly - Respiratory Respiratory: bilateral: CTA, negative: diminished, dullness, rales, rhonchichest wall bandaged with MARY drain draining serosanguineous discharge from the right no output from the left - Cardiovascular Rhythm: regular Heart sounds: normal: S1, S2 Abnormal Heart Sounds: no systolic murmur, no diastolic murmur, no rub, no S3 Gallop, no S4 Gallop, no click, no other - Gastrointestinal General gastrointestinal: normal bowel sounds, soft - Integumentary Integumentary: no rash - Neurologic Neurologic: CNII-XII intact - Musculoskeletal Musculoskeletal: gait normal, strength equal bilaterally - Psychiatric Psychiatric: A&O x's 3, appropriate affect Assessment and Plan Plan: #1 postoperative day 1 bilateral simple mastectomy. pain control with Dilaudid 1 mg every 3 hours incentive spirometry for pulmonary profile exes continue heparin subcu every 8 hours for DVT prophylaxis #2 hypertension continue atenolol 25 mg by mouth daily. Hydralazine 10 mg IV every 6 as needed for systolic more than 160 #3 anxiety Xanax ordered 0.25 mg by mouth twice a day as needed for anxiety #4 DVT prophylaxis with heparin 5000 subcu every 8 hours #5 Code status full code Thank you for the consult. I'll be happy to assist in patient's medical treatment patient to the hospital
[2019-10-28] MEDS ORDERED: IBUPROFEN 600 MG TAB PO PRN (21:29)
[2019-10-28] MEDS: diphenhydrAMINE 50 MG/ML 1 ML VIAL IVP PRN (22:37)
[2019-10-28] MEDS: HYDROcodone/APAP 7.5-325MG 1 EACH TAB PO PRN (22:38)
[2019-10-29] MEDS: HYDROmorphone 1 MG/ML 1 ML SYRINGE IVP PRN ×5 (02:07→23:20)
[2019-10-29] MEDS: diphenhydrAMINE 50 MG/ML 1 ML VIAL IVP PRN ×3 (04:33→20:13)
[2019-10-29] MEDS: PANTOPRAZOLE 40 MG/10 ML VIAL IV SCH (08:01)
[2019-10-29] MEDS: HYDROcodone/APAP 7.5-325MG 1 EACH TAB PO PRN ×3 (08:01→20:12)
[2019-10-29] MEDS: ATENOLOL 25 MG TAB PO SCH (08:01)
[2019-10-29] MEDS: HEPARIN SODIUM,PORCINE 5,000 UNIT/ML 1 ML VIAL SQ SCH ×3 (08:01→23:20)
[2019-10-29] MEDS: DOCUSATE 100 MG CAP PO SCH ×2 (08:01→20:12)
[2019-10-29 08:31] LABS: Basophils % (A) 0 %; Eosinophils # (A) 0.1 k/uL (0-0.7); Eosinophils % (A) 1 %; HCT 35.5 % (34.0-46.0); HGB 11.4 gm/dL (11.4-16.0); Hypochromasia Slight; Lymphocytes # (A) 2.5 k/uL (1.0-4.8); Lymphocytes % (A) 30 %; MCH 29.7 pg (25.0-35.0); MCHC 32.1 g/dL (31.0-37.0); MCV 92.5 fL (80.0-100.0); Monocytes # (A) 0.4 k/uL (0-1.0); Monocytes % (A) 5 %; Neutrophils # (A) 5.3 k/uL (1.3-7.7); Neutrophils % (A) 62 %; Platelet Count 248 k/uL (150-450); RBC 3.84 m/uL (3.80-5.40); RDW 13.5 % (11.5-15.5); WBC 8.5 k/uL (3.8-10.6)
[2019-10-29 08:49] LABS: ALT 20 U/L (4-34); AST 41 U/L (14-36); African American GFR (CKD) >90 (>60 ml/min/1.73 sqM); Albumin 3.5 g/dL (3.5-5.0); Alkaline Phosphatase 79 U/L (38-126); Anion Gap 5 mmol/L; Blood Urea Nitrogen 12 mg/dL (7-17); Calcium 9.2 mg/dL (8.4-10.2); Carbon Dioxide 26 mmol/L (22-30); Chloride 108 mmol/L (98-107); Glucose 80 mg/dL (74-99); Non-African American GFR(CKD) >90 (>60 ml/min/1.73 sqM); Potassium 4.6 mmol/L (3.5-5.1); Sodium 139 mmol/L (137-145); Total Bilirubin 0.3 mg/dL (0.2-1.3); Total Protein 6.6 g/dL (6.3-8.2)
[2019-10-29] MEDS: LACTATED RINGERS 1,000 ML IV SCH (09:13)
--- NOTE | 2019-10-29 09:49 | P.PN ---
<Sun De Jesus Jacqueline - Last Filed: 10/29/19 09:47> Subjective Progress Note Date: 10/29/19 CHIEF COMPLAINT: breast cancer HISTORY OF PRESENT ILLNESS: 54 -year-old female who is status post bilateral simple mastectomy with sentinel lymph node biopsy of left breast with concurrent reconstruction. Postoperative day #2. Patient examined at the bedside this morning. Patient reports her pain is tolerable with the increase dose of [place]. She is tolerating diet. Denies nausea or vomiting. MARY drains with serosanguineous drainage. Vital signs stable. She is afebrile. WBC 8.5. Hemo globin 11.4. PHYSICAL EXAM: VITAL SIGNS: Reviewed. GENERAL: Well-developed in no acute distress. HEENT: No sclera icterus. Extraocular movements grossly intact. Moist buccal mucosa. Head is atraumatic, normocephalic. ABDOMEN: Soft. Nondistended. Nontender. CHEST: Dressings clean dry and intact. MARY drains with serosanguineous drainage. NEUROLOGIC: Alert and oriented. Cranial nerves II through XII grossly intact. ASSESSMENT: 1. Breast cancer, status post bilateral simple mastectomy with sentinel lymph node biopsy of left breast with concurrent reconstruction PLAN: Pain control Continue diet as tolerated Monitor drainage from MARY site Daily dressing changes to surgical site Patient requesting to stay until tomorrow. Anticipate discharge home tomorrow Nurse practitioner note has been reviewed by physician. Signing provider agrees with the documented findings, assessment, and plan of care. Objective - Vital Signs Vital signs: Vital Signs Temp 97.6 F 10/29/19 07:33 Pulse 86 10/29/19 07:33 Resp 17 10/29/19 07:33 BP 171/79 10/29/19 07:33 Pulse Ox 99 10/29/19 07:33 Intake & Output 10/28/19 10/29/19 10/29/19 18:59 06:59 18:59 Intake Total 1000 Output Total 460 200 100 Balance 540 -200 -100 Intake: Intake, IV Titration 1000 Amount D5-0.45% NaCl with KCl 1000 20Meq/l 1,000 ml @ 125 mls/hr IV .Q8H [facility] Rx#: [id number] Output: Drainage 460 200 100 Left MARY 340 90 50 Right 120 110 50 Other: Voiding Method Toilet # Voids 2 1 - Labs CBC & Chem 7: 10/29/19 07:55 10/29/19 07:55 Labs: Abnormal Lab Results - Last 24 Hours (Table) 10/29/19 Range/Units 07:55 Chloride 108 H (98-107) mmol/L AST 41 H (14-36) U/L <Carlos Wood - Last Filed: 10/29/19 19:41> Subjective As above. Patient doing better today. Pain is improved. MARY drains working appropriately. Will plan discharge tomorrow morning. Objective - Vital Signs Vital signs: Vital Signs Temp 98.1 F 10/29/19 15:12 Pulse 77 10/29/19 15:12 Resp 16 10/29/19 15:12 BP 150/72 10/29/19 15:12 Pulse Ox 100 10/29/19 15:12 Intake & Output 10/29/19 10/29/19 10/30/19 06:59 18:59 06:59 Intake Total 240 Output Total 200 270 Balance -200 -30 Intake: Oral 240 Output: Drainage 200 270 Left MARY 90 140 Right 110 130 Other: Voiding Method Toilet # Voids 1 - Labs CBC & Chem 7: 10/29/19 07:55 10/29/19 07:55 Labs: Abnormal Lab Results - Last 24 Hours (Table) 10/29/19 Range/Units 07:55 Chloride 108 H (98-107) mmol/L AST 41 H (14-36) U/L
[2019-10-29] MEDS: D5-0.45% NACL WITH KCL 20MEQ/L 1,000 ML IV SCH ×2 (14:45→23:19)
--- NOTE | 2019-10-29 16:10 | P.PN ---
Subjective Progress Note Date: 10/29/19 this is a 54 years old female patient of Dr. Yee with past medical history of hypertension concern for elective bilateral mastectomy with Dr. Wood. patient has a history of breast cancer status post right breast lumpectomy had an abnormal mammogram on the left than on 6 mm in size patient was planned to have bilateral mastectomy with sentinel lymph node biopsyleft breast with concurrent reconstruction. Patient examined postoperatively appears to be sedated with medication denies any chest pain or shortness of breath or numbness or swelling in her lower extremity. Patient denies any headache dizziness history of change in bowel habits. On examination of the vitals, pulse is 69 blood pressure 172/94, saturating at 100 on 2 L.no blood work to evaluate, was consulted for medical management 10/28 patient doing well as to complains of significant pain in the chest. Right drain noticed to have50 mL IN the past 8 hours no output noted from the left MARY. Patient continue on significant pain control with Dilaudid 10/29 patient examined bedside still complaining of chest discomfort.patient denies any shortness of breath palpitation and anxiety, nausea vomiting, abdominal pain, black stools.left IJ drained 90 mL in the last 8 hours and 520 in the last 24 hours, right IJ draining 320 in the last 24 hours. Currently requiring diluted and Honobia for pain control. Continue plan for discharge tomorrow ROS Constitutional: Denies chills, Denies fever, Denies lethargy, Denies malaise, Denies poor appetite, Denies weakness, Denies weight loss Eyes: denies decreased vision, denies diplopia, denies discharge, denies pain Ears: deny: decreased hearing Ears, nose, mouth and throat: Denies dental pain, Denies headache, Denies nasal discharge, Denies nose pain Cardiovascular: Denies chest pain, Denies decreased exercise tolerance, Denies edema, Denies high blood pressure, Denies irregular heart beat, Denies palpitations, Denies paroxysmal nocturnal dyspnea, Denies rapid heart beat, Denies shortness of breath endorses muscular pain in the chest Respiratory: Denies congestion, Denies cough, Denies cough with sputum, Denies dyspnea, Denies home oxygen, Denies wheezing Gastrointestinal: Denies abdominal pain, Denies change in bowel habits, Denies c offee ground emesis, Denies early satiety, Denies excessive gas, Denies heartburn, Denies hematemesis, Denies hematochezia, Denies loss of appetite, Denies nausea, Denies vomiting Genitourinary: Denies dysuria, Denies flank pain, Denies kidney stones, Denies menorrhagia, Denies urgency, Denies urinary frequency Musculoskeletal: sore muscles of the chestpost surgery and pelvis with patient is getting heparin shot Integumentary: Denies rash, Denies wounds, Denies brittle nails, Denies change in hair/nails, Denies darkening of skin Neurological: Denies balance difficulties, Denies change in speech, Denies double vision, Denies gait dysfunction, Denies loss of vision, Denies motor disturbance, Denies numbness, Denies paralysis, Denies paresthesias, Denies seizures Psychiatric: Denies anxiety, Denies depression Endocrine: Denies excessive sweating, Denies excessive thirst, Denies high blood sugars, Denies palpitations Hematologic/Lymphatic: Denies easy bruising, Denies lymphadenopathy Objective - Vital Signs Vital signs: Vital Signs Temp 97.6 F 10/29/19 07:33 Pulse 86 10/29/19 07:33 Resp 17 10/29/19 07:33 BP 171/79 10/29/19 07:33 Pulse Ox 99 10/29/19 07:33 Intake & Output 10/28/19 10/29/19 10/29/19 18:59 06:59 18:59 Intake Total 1000 Output Total 460 200 180 Balance 540 -200 -180 Intake: Intake, IV Titration 1000 Amount D5-0.45% NaCl with KCl 1000 20Meq/l 1,000 ml @ 125 mls/hr IV .Q8H YEVGENIY Rx#: [id number] Output: Drainage 460 200 180 Left MARY 340 90 90 Right 120 110 90 Other: Voiding Method Toilet # Voids 2 1 - Exam - Constitutional General appearance: cooperative, no acute distress, obese - EENT Eyes: anicteric sclerae, PERRLA, normal appearance ENT: hearing grossly normal - Neck Neck: no lymphadenopathy, normal ROM, no other, no rigidity, no stridor, no thyromegaly - Respiratory Respiratory: bilateral: CTA, negative: diminished, dullness, rales, rhonchichest wall bandaged with MARY drain draining serosanguineous discharge from the right no output from the left - Cardiovascular Rhythm: regular Heart sounds: normal: S1, S2 Abnormal Heart Sounds: no systolic murmur, no diastolic murmur, no rub, no S3 Gallop, no S4 Gallop, no click, no other - Gastrointestinal General gastrointestinal: normal bowel sounds, soft - Integumentary Integumentary: no rash - Neurologic Neurologic: CNII-XII intact - Musculoskeletal Musculoskeletal: gait normal, strength equal bilaterally - Psychiatric Psychiatric: A&O x's 3, appropriate affect - Labs CBC & Chem 7: 10/29/19 07:55 10/29/19 07:55 Labs: Abnormal Lab Results - Last 24 Hours (Table) 10/29/19 Range/Units 07:55 Chloride 108 H (98-107) mmol/L AST 41 H (14-36) U/L Assessment and Plan Plan: #1 postoperative day 2 bilateral simple mastectomy. pain control with Dilaudid 1 mg every 3 hours incentive spirometry for pulmonary profile exes continue heparin subcu every 8 hours for DVT prophylaxiscontinue Honobia 7.5 mg every 6 hours #2 hypertension continue atenolol 25 mg by mouth daily. Hydralazine 10 mg IV every 6 as needed for systolic more than 160 #3 anxiety Xanax ordered 0.25 mg by mouth twice a day as needed for anxiety #4 DVT prophylaxis with heparin 5000 subcu every 8 hours #5 Code status full code
[2019-10-30] MEDS: HYDROcodone/APAP 7.5-325MG 1 EACH TAB PO PRN ×2 (02:27→09:00)
[2019-10-30] MEDS: diphenhydrAMINE 50 MG/ML 1 ML VIAL IVP PRN (02:28)
[2019-10-30] MEDS: HYDROmorphone 1 MG/ML 1 ML SYRINGE IVP PRN (05:26)
[2019-10-30] MEDS: D5-0.45% NACL WITH KCL 20MEQ/L 1,000 ML IV SCH (05:30)
[2019-10-30 08:43] VITALS: BP 168/57; PULSE 107; RESP 18; TEMP 98
[2019-10-30] MEDS: HEPARIN SODIUM,PORCINE 5,000 UNIT/ML 1 ML VIAL SQ SCH (08:59)
[2019-10-30] MEDS: PANTOPRAZOLE 40 MG/10 ML VIAL IV SCH (08:59)
[2019-10-30] MEDS: DOCUSATE 100 MG CAP PO SCH (09:00)
[2019-10-30] MEDS: LACTATED RINGERS 1,000 ML IV SCH (09:00)
[2019-10-30] MEDS: ATENOLOL 25 MG TAB PO SCH (09:00)
--- NOTE | 2019-10-30 10:29 | P.PN ---
Subjective Progress Note Date: 10/30/19 Principal diagnosis: Bilateral mastectomy Patient has no events overnight currently tolerating pain with [place] and recent dose of Dilaudid seems to be improved and according to the nursing staff no major events happen. Patient is asking to go home and follow up with surgery on scheduled appointment. Patient is denying chest pain, shortness breath, nausea, vomiting, dumping, dizziness, lightheadedness or blurry vision. Patient has passed flatus and urinating without difficulty tolerating diet Objective - Vital Signs Vital signs: Vital Signs Temp 98.0 F 10/30/19 07:00 Pulse 107 H 10/30/19 08:00 Resp 18 10/30/19 08:00 BP 168/57 10/30/19 07:00 Pulse Ox 99 10/30/19 07:00 Intake & Output 10/29/19 10/30/19 10/30/19 18:59 06:59 18:59 Intake Total 240 Output Total 270 120 Balance -30 -120 Intake: Oral 240 Output: Drainage 270 120 Left MARY 140 60 Right 130 60 Other: Voiding Method Toilet # Voids 1 2 - Exam Gen.: in stated age, no acute distress Heart: Normal S1-S2 Lungs: Clear to auscultation bilaterally Abdomen: Soft, no tenderness, positive bowel sounds in all 4 quadrant no guarding or rebound Skin: No new rash Psych: Alert and oriented 3 Neuro: No focal deficit - Labs CBC & Chem 7: 10/29/19 07:55 10/29/19 07:55 Assessment and Plan Assessment: 1. Status post mastectomy for breast cancer. 2. Hypertension. 3. Anxiety. Next line 4. Intractable pain. Patient is stable from the medical standpoint for discharge to be followed by surgery on her scheduled appointment on November 08 continue current pain management encourage oral intake specially for liquid to maintain regular bowel movement about every day plan of discharge discussed with the patient and asked to follow-up with her primary care physician within 7 days from discharge
--- NOTE | 2019-10-30 11:39 | P.DS ---
Providers Date of admission: 10/27/19 23:26 Expected date of discharge: 10/30/19 Attending physician: Carlos Wood Consults: 10/27/19 11:38 Consult Physician Routine Consulting Provider: Maryann Brewer Consult Reason/Comments: medical management Do you want consulting provider notified?: Yes Primary care physician: [facility] Course: this a 54 female who underwent bilateral simple mastectomy. Please see hospital chart for details. Patient did well postoperative. Procedures: bilateral simple mastectomy Patient Condition at Discharge: Good Plan - Discharge Summary Discharge Rx Participant: No New Discharge Prescriptions: New HYDROcodone/APAP 7.5-325MG [[place] 7.5-325] 1 tab PO Q6HR PRN 3 Days #12 tab PRN Reason: Pain No Action Atenolol 25 mg PO DAILY Cyanocobalamin [Vitamin B-12] 1,000 mcg PO DAILY Cholecalciferol (Vitamin D3) [Vitamin D3] 2,000 unit PO DAILY Turmeric Root Extract [Turmeric] 1,053 mg PO DAILY Discharge Medication List Atenolol 25 mg PO DAILY 08/26/19 [History] Cholecalciferol (Vitamin D3) [Vitamin D3] 2,000 unit PO DAILY 09/16/19 [History] Cyanocobalamin [Vitamin B-12] 1,000 mcg PO DAILY 09/16/19 [History] Turmeric Root Extract [Turmeric] 1,053 mg PO DAILY 10/25/19 [History] HYDROcodone/APAP 7.5-325MG [[place] 7.5-325] 1 tab PO Q6HR PRN 3 Days #12 tab 10/29/19 [Rx] Follow up Appointment(s)/Referral(s): Carlos Wood MD [Medical Doctor] - 11/08/19 (Call Office with time) Patient Instructions/Handouts: [facility] Drain Care (DC) Activity/Diet/Wound Care/Special Instructions: No driving while taking [place] No lifting over 10 pounds You may shower. No soaking or tub baths Very light activity until you are reevaluated at your follow up appointment with your surgeon
[2019-10-31] MEDS ORDERED: PANTOPRAZOLE 40 MG TABLET PO SCH (09:00)
== END 2019-10-30 12:40 | disposition home or self-care (01) ==
LOC: OR 07:03 → EDSTATUS 08:30 → 4SSUR 15:03 → OR 23:26 → 4SSUR 23:26
PROVIDERS: ADMIT Surgery; ATTEND Surgery
DX: C50.912 Malignant neoplasm of unspecified site of left female breast (principal); I10 Essential (primary) hypertension; Z79.899 Other long term (current) drug therapy; Z92.3 Personal history of irradiation; F41.9 Anxiety disorder, unspecified; N60.11 Diffuse cystic mastopathy of right breast
CPT/HCPCS: 19304; 19357; 38525; 80053; 85025; 88342; 88307; 88341; 38792; G0378 ×3; G0379; C1763; A9520; J2250; J1200 ×3; J1644 ×4; J1100; J2550; J2405; J0690; J2001; J3010; J1885; J1170 ×5; J0330; J2704; C9113 ×3; Q9968; 88309

== ENCOUNTER 2019-11-29 22:44 | Inpatient (IN) | payer OTHER ==
[2019-11-29] MEDS ORDERED: SODIUM CHLORIDE 0.9% 1,000 ML IV STA (23:03)
[2019-11-29 23:13] LABS: Basophils # (A) 0.1 k/uL (0-0.2); Basophils % (A) 0 %; Eosinophils # (A) 0.3 k/uL (0-0.7); Eosinophils % (A) 2 %; HCT 38.1 % (34.0-46.0); HGB 12.7 gm/dL (11.4-16.0); Lymphocytes # (A) 0.8 k/uL (1.0-4.8); Lymphocytes % (A) 4 %; MCH 29.4 pg (25.0-35.0); MCHC 33.4 g/dL (31.0-37.0); Mean Platelet Volume 7.6; Monocytes # (A) 0.8 k/uL (0-1.0); Monocytes % (A) 4 %; Neutrophils # (A) 18.5 k/uL (1.3-7.7); Neutrophils % (A) 90 %; Platelet Count 218 k/uL (150-450); RBC 4.33 m/uL (3.80-5.40); RDW 13.2 % (11.5-15.5); WBC 20.6 k/uL (3.8-10.6)
[2019-11-29 23:24] LABS: ALT 36 U/L (4-34); AST 36 U/L (14-36); African American GFR (CKD) >90 (>60 ml/min/1.73 sqM); Albumin 3.4 g/dL (3.5-5.0); Alkaline Phosphatase 109 U/L (38-126); Anion Gap 8 mmol/L; Blood Urea Nitrogen 18 mg/dL (7-17); Carbon Dioxide 22 mmol/L (22-30); Chloride 105 mmol/L (98-107); Glucose 146 mg/dL (74-99); Magnesium 1.7 mg/dL (1.6-2.3); Non-African American GFR(CKD) >90 (>60 ml/min/1.73 sqM); Potassium 4.2 mmol/L (3.5-5.1); Sodium 135 mmol/L (137-145); Total Bilirubin 0.9 mg/dL (0.2-1.3); Total Protein 6.5 g/dL (6.3-8.2)
[2019-11-29 23:27] LABS: Partial Thromboplastin Time 25.1 sec (22.0-30.0); Prothrombin Time 10.8 sec (9.0-12.0)
[2019-11-29 23:31] LABS: D-Dimer 2.5 mg/L FEU (<0.60)
[2019-11-29 23:34] LABS: Appearance,Urine Cloudy (Clear); Bacteria,Urine Rare /hpf; Bilirubin,Urine Negative (Negative); Blood,Urine Small (Negative); Color,Urine Yellow; Glucose,Urine (UA) Negative (Negative); Ketones,Urine 2+ (Negative); Leukocyte Esterase,Urine Large (Negative); Mucus,Urine Rare /hpf; Nitrite,Urine Negative (Negative); Protein,Urine 2+ (Negative); RBC,Urine 13 /hpf (0-5); Specific Gravity,Urine 1.035 (1.001-1.035); Squamous Epithelial Cell,Urine 1 /hpf (0-4); WBC,Urine 152 /hpf (0-5)
--- NOTE | 2019-11-29 23:45 | XR ---
EXAMINATION TYPE: XR chest 2V DATE OF EXAM: 11/29/2019 COMPARISON: 10/23/2019 HISTORY: Syncope TECHNIQUE: FINDINGS: Heart and mediastinum are normal. Lungs are clear. Diaphragm is normal. There are no hilar masses. Costophrenic angles are clear. IMPRESSION: No active cardiopulmonary disease. Bilateral mastectomy noted. Normal heart.
--- NOTE | 2019-11-30 00:03 | ED ---
General Adult HPI - General Chief complaint: Weakness Stated complaint: Weakness, nausea, vomiting Time Seen by Provider: 11/29/19 22:47 Source: patient, EMS, RN notes reviewed, old records reviewed Mode of arrival: EMS - History of Present Illness Initial comments: This Patient is a pleasant 54-year-old female, currently undergoing treatment for breast cancer. Patient reports that she had breast cancer on her right breast, this was treated 8 years ago. She was recently diagnosed with recurrence of breast cancer on her left breast. Patient reports that she had double mastectomy in early October, and is currently receiving treatment with Dr. Aguiar, who placed implants. Patient reports that she does have a drain in her right breast. She states that she is having some erythema and pain over the skin of her right breast. She was treated with antibiotics, Keflex by her surgeon Dr. Aguiar today. Patient reports that today when she returned home she was feeling quite dizzy lightheaded, also complained of some nausea episodes. She reports that she had a syncopal episode and continued to vomit. She does complain of some chest discomfort with radiation towards her back on the right side. She is not currently on chemotherapy. She reports that she started to feel generally unwell, and with these dizzy episodes and low grade chills and fevers for the past 24 hours. - Related Data Home Medications Medication Instructions Recorded Confirmed Atenolol 25 mg PO DAILY 08/26/19 10/27/19 Cholecalciferol (Vitamin D3) 2,000 unit PO DAILY 09/16/19 10/25/19 [Vitamin D3] Cyanocobalamin [Vitamin B-12] 1,000 mcg PO DAILY 09/16/19 10/25/19 Turmeric Root Extract [Turmeric] 1,053 mg PO DAILY 10/25/19 10/27/19 Previous Rx's Medication Instructions Recorded HYDROcodone/APAP 7.5-325MG [[place] 1 tab PO Q6HR PRN 3 Days #12 tab 10/29/19 7.5-325] Allergies Allergy/AdvReac Type Severity Reaction Status Date / Time No Known Allergies Allergy Verified 10/27/19 07:19 Review of Systems ROS Statement: Those systems with pertinent positive or pertinent negative responses have been documented in the HPI. ROS Other: All systems not noted in ROS Statement are negative. Past Medical History Past Medical History: Cancer, Hypertension Additional Past Medical History / Comment(s): breast cancer History of Any Multi-Drug Resistant Organisms: None Reported Past Surgical History: Breast Surgery, Tubal Ligation Additional Past Surgical History / Comment(s): rt breast lumpectomy, double masectomy Past Anesthesia/Blood Transfusion Reactions: Motion Sickness, Postoperative Nausea & Vomiting (PONV) Additional Past Anesthesia/Blood Transfusion Reaction / Comment(s): "takes me longer to wake up" Past Psychological History: No Psychological Hx Reported Smoking Status: Never smoker Past Alcohol Use History: Rare Past Drug Use History: None Reported - Past Family History Mother Family Medical History: No Reported History General Exam - General Exam Comments Initial Comments: 54-year-old female. Alert and oriented. General appearance: alert, in no apparent distress Head exam: Present: atraumatic, normocephalic, normal inspection Eye exam: Present: normal appearance, PERRL, EOMI. Absent: scleral icterus, conjunctival injection, periorbital swelling ENT exam: Present: normal exam, mucous membranes moist Neck exam: Present: normal inspection. Absent: tenderness, meningismus, lymphadenopathy Respiratory exam: Present: normal lung sounds bilaterally. Absent: respiratory distress, wheezes, rales, rhonchi, stridor Cardiovascular Exam: Present: regular rate, normal rhythm, normal heart sounds, other (Patient has a drain from the right breast. Approximately 50 mL of sanguinus and mildly purulent fluid is noted in drain. There is some surrounding erythema over the anterior portion of the right breast. Suture around the right nipple site.). Absent: systolic murmur, diastolic murmur, rubs, gallop, clicks GI/Abdominal exam: Present: soft, normal bowel sounds. Absent: distended, tenderness, guarding, rebound, rigid Extremities exam: Present: normal inspection, full ROM, normal capillary refill. Absent: tenderness, pedal edema, joint swelling, calf tenderness Back exam: Present: normal inspection Neurological exam: Present: alert, oriented X3, CN II-XII intact Psychiatric exam: Present: normal affect, normal mood Skin exam: Present: warm, dry, intact, normal color. Absent: rash Course Vital Signs 11/29/19 22:47 Temperature 97.8 F Pulse Rate 80 Respiratory 16 Rate Blood Pressure 135/75 O2 Sat by Pulse 100 Oximetry Medical Decision Making - Medical Decision Making Patient is a 34-year-old female presents with right breast infection, with drainage after meniscectomy proximal month ago. Patient also complains some right-sided chest pain, nausea vomiting and a syncopal episode. She did have a positive d-dimer. Concern for pulmonary embolism based on history. The CT chest angiogram completed and shows evidence of a right-sided emboli. She was started on heparin. Patient does have some evidence of cellulitis infection over the right breast. Patient was started on Rocephin and vancomycin. She does have significant leukocytosis. Blood cultures were obtained. Patient also has evidence of urinary tract infection. Urine culture will be obtained as well. I discussed the case with Dr. Loyd will discuss case with Dr. Brewer. Patient will be admitted this time with consults to pulmonology, and her surgeon. - Lab Data Result diagrams: 11/29/19 23:03 11/29/19 23:03 Lab Results 11/29/19 11/29/19 11/29/19 Range/Units 22:16 23:03 23:03 WBC 20.6 H (3.8-10.6) k/uL RBC 4.33 (3.80-5.40) m/uL Hgb 12.7 (11.4-16.0) gm/dL Hct 38.1 (34.0-46.0) % MCV 88.0 (80.0-100.0) fL MCH 29.4 (25.0-35.0) pg MCHC 33.4 (31.0-37.0) g/dL RDW 13.2 (11.5-15.5) % Plt Count 218 (150-450) k/uL Neutrophils % 90 % Lymphocytes % 4 % Monocytes % 4 % Eosinophils % 2 % Basophils % 0 % Neutrophils # 18.5 H (1.3-7.7) k/uL Lymphocytes # 0.8 L (1.0-4.8) k/uL Monocytes # 0.8 (0-1.0) k/uL Eosinophils # 0.3 (0-0.7) k/uL Basophils # 0.1 (0-0.2) k/uL PT (9.0-12.0) sec INR (<1.2) APTT (22.0-30.0) sec D-Dimer (<0.60) mg/L FEU Sodium 135 L (137-145) mmol/L Potassium 4.2 (3.5-5.1) mmol/L Chloride 105 (98-107) mmol/L Carbon Dioxide 22 (22-30) mmol/L Anion Gap 8 mmol/L BUN 18 H (7-17) mg/dL Creatinine 0.64 (0.52-1.04) mg/dL Est GFR (CKD-EPI)AfAm >90 (>60 ml/min/1.73 sqM) Est GFR (CKD-EPI)NonAf >90 (>60 ml/min/1.73 sqM) Glucose 146 H (74-99) mg/dL Plasma Lactic Acid Wander (0.7-2.0) mmol/L Calcium 9.0 (8.4-10.2) mg/dL Magnesium 1.7 (1.6-2.3) mg/dL Total Bilirubin 0.9 (0.2-1.3) mg/dL AST 36 (14-36) U/L ALT 36 H (4-34) U/L Alkaline Phosphatase 109 (38-126) U/L Troponin I (0.000-0.034) ng/mL Total Protein 6.5 (6.3-8.2) g/dL Albumin 3.4 L (3.5-5.0) g/dL Urine Color Yellow Urine Appearance Cloudy H (Clear) Urine pH 6.0 (5.0-8.0) Ur Specific [place] 1.035 (1.001-1.035) Urine Protein 2+ H (Negative) Urine Glucose (UA) Negative (Negative) Urine Ketones 2+ H (Negative) Urine Blood Small H (Negative) Urine Nitrite Negative (Negative) Urine Bilirubin Negative (Negative) Urine Urobilinogen 2.0 (<2.0) mg/dL Ur Leukocyte Esterase Large H (Negative) Urine RBC 13 H (0-5) /hpf Urine WBC 152 H (0-5) /hpf Ur Squamous Epith Cells 1 (0-4) /hpf Urine Bacteria Rare H (None) /hpf Urine Mucus Rare H (None) /hpf 11/29/19 11/29/19 11/29/19 Range/Units 23:03 23:03 23:03 WBC (3.8-10.6) k/uL RBC (3.80-5.40) m/uL Hgb (11.4-16.0) gm/dL Hct (34.0-46.0) % MCV (80.0-100.0) fL MCH (25.0-35.0) pg MCHC (31.0-37.0) g/dL RDW (11.5-15.5) % Plt Count (150-450) k/uL Neutrophils % % Lymphocytes % % Monocytes % % Eosinophils % % Basophils % % Neutrophils # (1.3-7.7) k/uL Lymphocytes # (1.0-4.8) k/uL Monocytes # (0-1.0) k/uL Eosinophils # (0-0.7) k/uL Basophils # (0-0.2) k/uL PT 10.8 (9.0-12.0) sec INR 1.0 (<1.2) APTT 25.1 (22.0-30.0) sec D-Dimer 2.50 H (<0.60) mg/L FEU Sodium (137-145) mmol/L Potassium (3.5-5.1) mmol/L Chloride (98-107) mmol/L Carbon Dioxide (22-30) mmol/L Anion Gap mmol/L BUN (7-17) mg/dL Creatinine (0.52-1.04) mg/dL Est GFR (CKD-EPI)AfAm (>60 ml/min/1.73 sqM) Est GFR (CKD-EPI)NonAf (>60 ml/min/1.73 sqM) Glucose (74-99) mg/dL Plasma Lactic Acid Wander 0.7 (0.7-2.0) mmol/L Calcium (8.4-10.2) mg/dL Magnesium (1.6-2.3) mg/dL Total Bilirubin (0.2-1.3) mg/dL AST (14-36) U/L ALT (4-34) U/L Alkaline Phosphatase (38-126) U/L Troponin I <0.012 (0.000-0.034) ng/mL Total Protein (6.3-8.2) g/dL Albumin (3.5-5.0) g/dL Urine Color Urine Appearance (Clear) Urine pH (5.0-8.0) Ur Specific [place] (1.001-1.035) Urine Protein (Negative) Urine Glucose (UA) (Negative) Urine Ketones (Negative) Urine Blood (Negative) Urine Nitrite (Negative) Urine Bilirubin (Negative) Urine Urobilinogen (<2.0) mg/dL Ur Leukocyte Esterase (Negative) Urine RBC (0-5) /hpf Urine WBC (0-5) /hpf Ur Squamous Epith Cells (0-4) /hpf Urine Bacteria (None) /hpf Urine Mucus (None) /hpf When compared to previous EKG there are: changes noted 11/30/19 00:04 EKG shows normal sinus rhythm nonspecific T-wave abnormality. Abnormal EKG. Ventricular rate of 130 bpm. WI interval is 76 ms. QRS duration is 82 ms. QT QTc is 382/459. - Radiology Data Radiology results: report reviewed Evidence of multiple small emboli in the right lower lobe pulmonary artery. Of right pleural effusion. Mild basal infiltrate and atelectasis of the right lower lobe. Chest x-ray shows no active cardiopulmonary disease. Bilateral meniscectomy noted. Normal heart. Disposition Clinical Impression: Cellulitis of right breast, Infection of breast implant, Right pulmonary embolus, UTI (urinary tract infection), Leukocytosis, Syncope, Nausea & vomiting Disposition: ADMITTED IP TO THIS HOSP Condition: Stable Is patient prescribed a controlled substance at d/c from ED?: No Referrals: Peggy Yee MD [Primary Care Provider] - 1-2 days Time of Disposition: 00:31
--- NOTE | 2019-11-30 00:22 | CT ---
EXAMINATION TYPE: CT chest angio for PE DATE OF EXAM: 11/30/2019 COMPARISON: HISTORY: Patient presents with left breast infection. CT DLP: 386.6 mGycm Automated exposure control for dose reduction was used. CONTRAST: Performed with IV Contrast, patient injected with 65mL mL of Isovue 300. There are 3-D post processed images. Multiple axial sections were obtained from the thoracic inlet to the diaphragm with intravenous contr ast. Heart size is normal. There is no mediastinal adenopathy. There are no hilar masses. There is small r ight pleural effusion. There is mild atelectasis right lung base. There is mild subsegmental atelecta sis left lung base. There are multiple filling defects in the right lower lobe pulmonary artery in the posterior basal se gment. There are bilateral mastectomies with implants. There is small amount of fluid around both spacers. T here is a drainage catheter anterior to the right spacer. Thoracic spine is intact. Sternum is intact. Bony thorax is intact. IMPRESSION: There is evidence of multiple small emboli in the right lower lobe pulmonary artery. Mild right pleural effusion. Basilar mild infiltrate and atelectasis right lower lobe.
[2019-11-30] MEDS ORDERED: VANCOMYCIN IV PER PHARMACY 1 EACH MISC MISCELLANE PRN (00:25)
[2019-11-30] MEDS ORDERED: HEPARIN SODIUM,PORCINE 10,000 UNIT/ML 1 ML VIAL IV ONE (00:25)
[2019-11-30] MEDS ORDERED: HEPARIN SODIUM,PORCINE 5,000 UNIT/ML 1 ML VIAL IV PRN (00:25)
[2019-11-30] MEDS ORDERED: HEPARIN SOD,PORK IN 0.45% NACL 25,000 UNIT in 0.45% NACL 1 250ML.BAG IV SCH (00:30)
[2019-11-30] MEDS ORDERED: KETOROLAC 30 MG/ML 1 ML VIAL IVP PRN (00:32)
[2019-11-30] MEDS ORDERED: IBUPROFEN 400 MG TAB PO PRN (00:32)
[2019-11-30] MEDS ORDERED: NALOXONE 0.4 MG/ML 1 ML VIAL IV PRN (00:32)
[2019-11-30] MEDS ORDERED: ACETAMINOPHEN TAB 325 MG TAB PO PRN (00:32)
[2019-11-30] MEDS ORDERED: MORPHINE SULFATE 4 MG/ML SYRINGE IVP STA (00:35)
[2019-11-30] MEDS ORDERED: VANCOMYCIN 1,250 MG in SODIUM CHLORIDE 0.9% 250 ML IVPB ONE (01:00)
[2019-11-30] MEDS: SODIUM CHLORIDE 0.9% 1,000 ML IV SCH ×3 (01:02→20:46)
[2019-11-30] MEDS: ONDANSETRON 4 MG/2 ML VIAL IVP PRN ×2 (01:21→12:16)
[2019-11-30] MEDS: MORPHINE SULFATE 4 MG/ML SYRINGE IV PRN ×3 (07:26→20:46)
[2019-11-30] MEDS ORDERED: PANTOPRAZOLE 40 MG/10 ML VIAL IV SCH (09:00)
[2019-11-30] MEDS: ATENOLOL 25 MG TAB PO SCH (11:09)
[2019-11-30] MEDS ORDERED: RIVAROXABAN 15 MG TAB PO SCH (11:15)
--- NOTE | 2019-11-30 11:32 | US ---
EXAMINATION TYPE: US venous doppler duplex LE DATE OF EXAM: 11/30/2019 11:12 AM COMPARISON: NONE CLINICAL HISTORY: PE. PE, patient on blood thinners SIDE PERFORMED: Bilateral TECHNIQUE: The lower extremity deep venous system is examined utilizing real time linear array sonog corey with graded compression, doppler sonography and color-flow sonography. VESSELS IMAGED: External Iliac Vein (EIV) Common Femoral Vein Deep Femoral Vein Greater Saphenous Vein * Femoral Vein Popliteal Vein Small Saphenous Vein * Proximal Calf Veins (* superficial vessels) Right Leg: Appears negative for DVT Left Leg: Appears negative for DVT Grayscale, color doppler, spectral doppler imaging performed of the deep veins of the bilateral lower extremities. There is normal flow, compressibility, vascular waveforms. IMPRESSION: No ultrasound evidence for acute DVT in either lower extremity.
--- NOTE | 2019-11-30 11:56 | P.HPIM ---
History of Present Illness H&P Date: 11/30/19 Chief Complaint: Weakness, dizziness, body aches, vomiting This is a 54-year-old female patient of Dr. Yee with past medical history of hypertension and breast cancer status post right breast lumpectomy followed by an abnormal mammogram on the left and subsequently underwent bilateral simple mastectomy and sentinel lymph node biopsy left breast with concurrent reconstruction by Dr. Wood and Dr. Tavarez on 10/27/2019. Patient states that she had the MARY drain on the left side removed shortly after surgery. She has been following with Dr. Tavarez on a weekly basis due to erythema and pain to the right breast. She has a MARY drain that has started draining a cloudy substance between a few days and one week ago. Patient states that last week for the entire week she was not feeling very well was feeling weak in general and then on Friday she started developing body aches, sweats and nausea. She was also feeling dizzy and lightheaded. She was having chills and cold sweats. She denies any black or bloody stools. Yesterday she states she was gasping for air and she had pain in her right shoulder and back. She got up to the bathroom and passed out and her carried her to the bed. Patient got up to get dressed and started vomiting. EMS was called and brought her into the hospital for evaluation. Patient was found to have leukocytosis of 20.6, hemoglobin was 12.7, platelet count 218. Sodium 135, potassium 4.2, chloride 105, CO2 22, BUN 18 creatinine 0.64, blood sugar 146. ALT 36. Urinalysis cloudy, protein 2+, leukoesterase large, WBC 152, bacteria rare. D-dimer was elevated at 2.5, lactic acid 0.7. EKG was a normal sinus rhythm with nonspecific T-wave abnormality. Heart rate was 87. Chest x-ray shows no active cardiopulmonary disease. Bilateral mastectomy. Normal heart. CTA of the chest showed evidence of multiple small emboli in the right lower lobe pulmonary artery. Mild pleural effusion. Basilar mild infiltrate and oriented lactose his right lower lobe. Patient was also found to have cellulitis of the right breast mastectomy site. Patient was started on Rocephin and heparin drip. Consult in place with [facility] medicine, Dr. Wood and consult added for Dr. Ariza. Ultrasound of the bilateral lower extremities negative for DVT. Review of Systems Constitutional: Reports anorexia, Reports chills, Reports fatigue, Reports lethargy, Reports malaise, Reports night sweats, Reports poor appetite, Reports sweats, Reports weakness, Denies fever Eyes: denies blurred vision, denies pain Ears, nose, mouth and throat: Reports vertigo, Denies dysphagia, Denies headache, Denies nasal congestion, Denies nasal discharge, Denies sore throat Breasts: right: skin changes Cardiovascular: Reports lightheadedness, Reports shortness of breath, Reports syncope, Denies chest pain, Denies dyspnea on exertion, Denies irregular heart beat Respiratory: Reports dyspnea, Reports pain on inspiration, Denies cough, Denies cough with sputum, Denies excessive sputum, Denies hemoptysis, Denies home oxygen, Denies respiratory infections, Denies wheezing Gastrointestinal: Reports loss of appetite, Reports nausea, Reports vomiting, De nies abdominal pain, Denies diarrhea Genitourinary: Denies dysuria, Denies hematuria Musculoskeletal: Reports muscle weakness, Denies frequent falls, Denies gait dysfunction, Denies myalgias Integumentary: Reports color changes, Reports wounds, Denies pruritus, Denies rash Neurological: Denies change in mentation, Denies change in speech, Denies numbness, Denies weakness Psychiatric: Denies anxiety, Denies depression Endocrine: Denies fatigue, Denies weight change Past Medical History Past Medical History: Cancer, Hypertension Additional Past Medical History / Comment(s): Breast cancer status post right breast lumpectomy followed by an abnormal mammogram on the left and subsequently underwent bilateral simple mastectomy and sentinel lymph node biopsy left breast with concurrent reconstruction by Dr. Wood and Dr. Tavarez on 10/27/2019. History of Any Multi-Drug Resistant Organisms: None Reported Past Surgical History: Breast Surgery, Tubal Ligation Additional Past Surgical History / Comment(s): rt breast lumpectomy, double mastectomy Past Anesthesia/Blood Transfusion Reactions: Motion Sickness, Postoperative Nausea & Vomiting (PONV) Additional Past Anesthesia/Blood Transfusion Reaction / Comment(s): "takes me longer to wake up" Past Psychological History: No Psychological Hx Reported Smoking Status: Never smoker Past Alcohol Use History: Rare Additional Past Alcohol Use History / Comment(s): Patient is a lifelong nonsmoker, no illicit drug use, rare alcohol use. Patient lives at home with her and 2 children. Past Drug Use History: None Reported - Past Family History Mother Family Medical History: Hypertension Additional Family Medical History / Comment(s): Mother is alive with only history of hypertension. Father Family Medical History: No Reported History Additional Family Medical History / Comment(s): Father is but she does not know any of his medical history. Brother(s) Additional Family Medical History / Comment(s): Patient has 1 brother with no major medical problems. Sister(s) Additional Family Medical History / Comment(s): Patient has one sister with history of SVT status post ablations and osteoarthritis with knee replacements. Patient has 2 children with no major medical problems. Medications and Allergies Home Medications Medication Instructions Recorded Confirmed Type Atenolol 25 mg PO DAILY 08/26/19 11/30/19 History Cholecalciferol (Vitamin D3) 2,000 unit PO DAILY 09/16/19 11/30/19 History [Vitamin D3] Cyanocobalamin [Vitamin B-12] 1,000 mcg PO DAILY 09/16/19 11/30/19 History Allergies Allergy/AdvReac Type Severity Reaction Status Date / Time No Known Allergies Allergy Verified 11/30/19 08:15 Physical Exam Vitals: Vital Signs Temp Pulse Pulse Resp BP BP Pulse Ox 11/30/19 08:00 97.3 F L 84 16 125/72 97 11/30/19 03:55 97.8 F 74 24 138/81 93 L 11/29/19 22:47 97.8 F 80 16 135/75 100 Intake and Output 11/29/19 11/30/19 11/30/19 22:59 06:59 14:59 Intake Total 471.199 420 Output Total 20 Balance 451.199 420 Intake: Intake, IV Titration 471.199 0 Amount Heparin Sod,Pork in 0.45% 71.199 0 NaCl 25,000 unit In 0.45 % NaCl 1 250ml.bag @ 18 UNITS/KG/HR 13.064 mls/hr IV .Q19H9M [facility] Rx#: [id number] Sodium Chloride 0.9% 1, 400 000 ml @ 100 mls/hr IV . Q10H [facility] Rx#:[id number] Oral 420 Output: Drainage 20 Right Lateral Chest 20 Other: Voiding Method Toilet Weight 72.575 kg 74.8 kg Gen: This is a 54-year-old female. Patient is resting in bed and appears to be comfortable and in no acute distress. HEENT: Head is atraumatic, normocephalic. Pupils equal, round. Sclerae is anicteric. Oral mucous membranes are moist. No thrush noted. NECK: Supple. No JVD. No lymphadenopathy. No thyromegaly. LUNGS: Clear to auscultation. No wheezes or rhonchi. No intercostal retractions. HEART: Regular rate and rhythm. No murmur. BREASTS: The patient has had bilateral mastectomy. Right side has mild erythema. No open wounds or drainage noted. MARY drain with cloudy pale fluid. ABDOMEN: Soft. Bowel sounds are present. No masses. No tenderness. EXTREMITIES: No pedal edema. No calf tenderness. Dorsalis pedis +2 bilaterally. NEUROLOGICAL: Patient is awake, alert and oriented x3. Cranial nerves 2 through 12 are grossly intact. Results CBC & Chem 7: 11/29/19 23:03 11/29/19 23:03 Labs: Abnormal Lab Results - Last 24 Hours (Table) 11/29/19 11/29/19 11/29/19 Range/Units 22:16 23:03 23:03 WBC 20.6 H (3.8-10.6) k/uL Neutrophils # 18.5 H (1.3-7.7) k/uL Lymphocytes # 0.8 L (1.0-4.8) k/uL APTT (22.0-30.0) sec D-Dimer (<0.60) mg/L FEU Sodium 135 L (137-145) mmol/L BUN 18 H (7-17) mg/dL Glucose 146 H (74-99) mg/dL ALT 36 H (4-34) U/L Albumin 3.4 L (3.5-5.0) g/dL Urine Appearance Cloudy H (Clear) Urine Protein 2+ H (Negative) Urine Ketones 2+ H (Negative) Urine Blood Small H (Negative) Ur Leukocyte Esterase Large H (Negative) Urine RBC 13 H (0-5) /hpf Urine WBC 152 H (0-5) /hpf Urine Bacteria Rare H (None) /hpf Urine Mucus Rare H (None) /hpf 11/29/19 11/30/19 Range/Units 23:03 05:04 WBC (3.8-10.6) k/uL Neutrophils # (1.3-7.7) k/uL Lymphocytes # (1.0-4.8) k/uL APTT 104.5 H* (22.0-30.0) sec D-Dimer 2.50 H (<0.60) mg/L FEU Sodium (137-145) mmol/L BUN (7-17) mg/dL Glucose (74-99) mg/dL ALT (4-34) U/L Albumin (3.5-5.0) g/dL Urine Appearance (Clear) Urine Protein (Negative) Urine Ketones (Negative) Urine Blood (Negative) Ur Leukocyte Esterase (Negative) Urine RBC (0-5) /hpf Urine WBC (0-5) /hpf Urine Bacteria (None) /hpf Urine Mucus (None) /hpf Thrombosis Risk Factor Assmnt - DVT/VTE Prophylaxis DVT/VTE Prophylaxis: Pharmacologic Prophylaxis ordered - Choose All That Apply Any of the Below Risk Factors Present?: Yes Each Factor Represents 1 point: Age 41-60 years Other Risk Factors: Yes Each Risk Factor Represents 2 Points: Malignancy Thrombosis Risk Factor Assessment Total Risk Factor Score: 3 Thrombosis Risk Factor Assessment Level: Moderate Risk Assessment and Plan Plan: 1. SIRS and Sepsis secondary to acute pulmonary embolism and cellulitis right breast. 2. Acute pulmonary embolism. The patient has been started on heparin drip. Patient seen by Dr. Tolbert. Patient transitioned to Xarelto 50 mg twice daily for 21 days then 20 mg daily. Ultrasound of the bilateral lower extremities negative for DVT. 3. Cellulitis right breast at mastectomy site. Patient is currently on Rocephin. Consult with Dr. Ariza and Dr. Wood. Fluid culture to be obtained. Blood culture in progress. 4. Urinary tract infection. Urine culture in progress. Continue Rocephin. 5. Hypertension. Resume atenolol 25 mg daily. 6. History of bilateral breast cancer status post simple bilateral mastectomy. 7. GI prophylaxis and GERD. Protonix. 8. DVT prophylaxis. Xarelto. Patient will be admitted to the hospital for a minimum of 2 night stay. Discharge plan: Return home Impression and plan of care have been directed as dictated by the signing physician. Maria Alejandra Convery nurse practitioner acting as scribe for signing physician.
--- NOTE | 2019-11-30 12:01 | P.CONS ---
<Maria Alejandra Fox - Last Filed: 11/30/19 11:56> History of Present Illness - Reason for Consult Consult date: 11/30/19 Cellulitis right breast - History of Present Illness This is a 54-year-old female patient of Dr. Yee with past medical history of hypertension and breast cancer status post right breast lumpectomy followed by an abnormal mammogram on the left and subsequently underwent bilateral simple mastectomy and sentinel lymph node biopsy left breast with concurrent reconstruction by Dr. Wood and Dr. Tavarez on 10/27/2019. Patient states that she had the MARY drain on the left side removed shortly after surgery. She has been following with Dr. Tavarez on a weekly basis due to erythema and pain to the right breast. She has a MARY drain that has started draining a cloudy substance between a few days and one week ago. Patient states that last week for the entire week she was not feeling very well was feeling weak in general and then on Friday she started developing body aches, sweats and nausea. She was also feeling dizzy and lightheaded. She was having chills and cold sweats. She denies any black or bloody stools. Yesterday she states she was gasping for air and she had pain in her right shoulder and back. She got up to the bathroom and passed out and her carried her to the bed. Patient got up to get dressed and started vomiting. EMS was called and brought her into the hospital for evaluation. Patient was found to have leukocytosis of 20.6, hemoglobin was 12.7, platelet count 218. Sodium 135, potassium 4.2, chloride 105, CO2 22, BUN 18 creatinine 0.64, blood sugar 146. ALT 36. Urinalysis cloudy, protein 2+, leukoesterase large, WBC 152, bacteria rare. D-dimer was elevated at 2.5, lactic acid 0.7. EKG was a normal sinus rhythm with nonspecific T-wave abnormality. Heart rate was 87. Chest x-ray shows no active cardiopulmonary disease. Bilateral mastectomy. Normal heart. CTA of the chest showed evidence of multiple small emboli in the right lower lobe pulmonary artery. Mild right pleural effusion. Basilar mild infiltrate and atelectasis right lower lobe. Patient was also found to have cellulitis of the right breast mastectomy site. Patient was started on Rocephin and heparin drip. Consult in place with pulmonary medicine and Dr. Wood. Ultrasound of the bilateral lower extremities negative for DVT. Body fluid culture of the right breast, urine culture and blood culture are in progress. Review of Systems Constitutional: Reports anorexia, Reports chills, Reports fatigue, Reports lethargy, Reports malaise, Reports night sweats, Reports poor appetite, Reports sweats, Reports weakness, Denies fever Eyes: denies blurred vision, denies pain Ears, nose, mouth and throat: Reports vertigo, Denies dysphagia, Denies headache, Denies nasal congestion, Denies nasal discharge, Denies sore throat Breasts: right: skin changes Cardiovascular: Reports lightheadedness, Reports shortness of breath, Reports syncope, Denies chest pain, Denies dyspnea on exertion, Denies irregular heart beat Respiratory: Reports dyspnea, Reports pain on inspiration, Denies cough, Denies cough with sputum, Denies excessive sputum, Denies hemoptysis, Denies home oxygen, Denies respiratory infections, Denies wheezing Gastrointestinal: Reports loss of appetite, Reports nausea, Reports vomiting, Denies abdominal pain, Denies diarrhea Genitourinary: Denies dysuria, Denies hematuria Musculoskeletal: Reports muscle weakness, Denies frequent falls, Denies gait dysfunction, Denies myalgias Integumentary: Reports color changes, Reports wounds, Denies pruritus, Denies rash Neurological: Denies change in mentation, Denies change in speech, Denies numbness, Denies weakness Psychiatric: Denies anxiety, Denies depression Endocrine: Reports fatigue, Denies weight change Past Medical History Past Medical History: Cancer, Hypertension Additional Past Medical History / Comment(s): Breast cancer status post right breast lumpectomy followed by an abnormal mammogram on the left and subsequently underwent bilateral simple mastectomy and sentinel lymph node biopsy left breast with concurrent reconstruction by Dr. Wood and Dr. Tavarez on 10/27/2019. History of Any Multi-Drug Resistant Organisms: None Reported Past Surgical History: Breast Surgery, Tubal Ligation Additional Past Surgical History / Comment(s): rt breast lumpectomy, double mastectomy Past Anesthesia/Blood Transfusion Reactions: Motion Sickness, Postoperative Nausea & Vomiting (PONV) Additional Past Anesthesia/Blood Transfusion Reaction / Comm: "takes me longer to wake up" Past Psychological History: No Psychological Hx Reported Smoking Status: Never smoker Past Alcohol Use History: Rare Additional Past Alcohol Use History / Comment(s): Patient is a lifelong nonsmoker, no illicit drug use, rare alcohol use. Patient lives at home with her and 2 children. Past Drug Use History: None Reported - Past Family History Mother Family Medical History: Hypertension Additional Family Medical History / Comment(s): Mother is alive with only history of hypertension. Father Family Medical History: No Reported History Additional Family Medical History / Comment(s): Father is but she does not know any of his medical history. Brother(s) Additional Family Medical History / Comment(s): Patient has 1 brother with no major medical problems. Sister(s) Additional Family Medical History / Comment(s): Patient has one sister with history of SVT status post ablations and osteoarthritis with knee replacements. Patient has 2 children with no major medical problems. Medications and Allergies Home Medications Medication Instructions Recorded Confirmed Type Atenolol 25 mg PO DAILY 08/26/19 11/30/19 History Cholecalciferol (Vitamin D3) 2,000 unit PO DAILY 09/16/19 11/30/19 History [Vitamin D3] Cyanocobalamin [Vitamin B-12] 1,000 mcg PO DAILY 09/16/19 11/30/19 History Rivaroxaban [Xarelto Starter Pack] 0 mg PO DIRECTED 30 Days #1 pack 11/30/19 Rx Allergies Allergy/AdvReac Type Severity Reaction Status Date / Time No Known Allergies Allergy Verified 11/30/19 08:15 Physical Exam Vitals: Vital Signs Temp Pulse Pulse Resp BP BP Pulse Ox 11/30/19 11:29 97.6 F 88 20 142/74 100 11/30/19 08:00 97.3 F L 84 16 125/72 97 11/30/19 03:55 97.8 F 74 24 138/81 93 L 11/29/19 22:47 97.8 F 80 16 135/75 100 Intake and Output 11/29/19 11/30/19 11/30/19 22:59 06:59 14:59 Intake Total 471.199 420 Output Total Balance 451.199 400 Intake: Intake, IV Titration 471.199 0 Amount Heparin Sod,Pork in 0.45% 71.199 0 NaCl 25,000 unit In 0.45 % NaCl 1 250ml.bag @ 18 UNITS/KG/HR 13.064 mls/hr IV .Q19H9M [facility] Rx#: [id number] Sodium Chloride 0.9% 1, 400 000 ml @ 100 mls/hr IV . Q10H [facility] Rx#:[id number] Oral 420 Output: Drainage 20 20 Right Lateral Chest 20 20 Other: Voiding Method Toilet Weight 72.575 kg 74.8 kg Gen: This is a 54-year-old female. Patient is resting in bed and appears to be comfortable and in no acute distress. HEENT: Head is atraumatic, normocephalic. Pupils equal, round. Sclerae is anicteric. Oral mucous membranes are moist. No thrush noted. NECK: Supple. No JVD. No lymphadenopathy. No thyromegaly. LUNGS: Clear to auscultation. No wheezes or rhonchi. No intercostal retractions. HEART: Regular rate and rhythm. No murmur. BREASTS: The patient has had bilateral mastectomy. Right side has mild erythema. No open wounds or drainage noted. MARY drain with cloudy pale fluid. ABDOMEN: Soft. Bowel sounds are present. No masses. No tenderness. EXTREMITIES: No pedal edema. No calf tenderness. Dorsalis pedis +2 bilaterally. NEUROLOGICAL: Patient is awake, alert and oriented x3. Cranial nerves 2 through 12 are grossly intact. Results CBC & Chem 7: 11/29/19 23:03 11/29/19 23:03 Labs: Abnormal Lab Results - Last 24 Hours (Table) 11/29/19 11/29/19 11/29/19 Range/Units 22:16 23:03 23:03 WBC 20.6 H (3.8-10.6) k/uL Neutrophils # 18.5 H (1.3-7.7) k/uL Lymphocytes # 0.8 L (1.0-4.8) k/uL APTT (22.0-30.0) sec D-Dimer (<0.60) mg/L FEU Sodium 135 L (137-145) mmol/L BUN 18 H (7-17) mg/dL Glucose 146 H (74-99) mg/dL ALT 36 H (4-34) U/L Albumin 3.4 L (3.5-5.0) g/dL Urine Appearance Cloudy H (Clear) Urine Protein 2+ H (Negative) Urine Ketones 2+ H (Negative) Urine Blood Small H (Negative) Ur Leukocyte Esterase Large H (Negative) Urine RBC 13 H (0-5) /hpf Urine WBC 152 H (0-5) /hpf Urine Bacteria Rare H (None) /hpf Urine Mucus Rare H (None) /hpf 11/29/19 11/30/19 Range/Units 23:03 05:04 WBC (3.8-10.6) k/uL Neutrophils # (1.3-7.7) k/uL Lymphocytes # (1.0-4.8) k/uL APTT 104.5 H* (22.0-30.0) sec D-Dimer 2.50 H (<0.60) mg/L FEU Sodium (137-145) mmol/L BUN (7-17) mg/dL Glucose (74-99) mg/dL ALT (4-34) U/L Albumin (3.5-5.0) g/dL Urine Appearance (Clear) Urine Protein (Negative) Urine Ketones (Negative) Urine Blood (Negative) Ur Leukocyte Esterase (Negative) Urine RBC (0-5) /hpf Urine WBC (0-5) /hpf Urine Bacteria (None) /hpf Urine Mucus (None) /hpf Microbiology - Last 24 Hours (Table) 11/29/19 22:16 Urine Culture - Preliminary Urine,Clean Catch Assessment and Plan Plan: This is a 54-year-old female who presented to the hospital with signs of SIRS and sepsis secondary to acute pulmonary embolism, acute urinary tract infection and cellulitis of the right breast. Patient has been on heparin drip transitioned to Xarelto for the acute pulmonary embolism. Regarding the cellulitis of the right breast at mastectomy site, patient has been followed on a weekly basis by Dr. Tavarez. MARY drain is in place. Fluid culture, urine culture and blood culture in progress. Patient is currently on Rocephin. Continue supportive care. Further admonitions as patient regresses. The above dictated assessment and findings were discussed with Dr. Ariza. The impression and plan of care have been directed as dictated. Maria Alejandra Fox nurse practitioner acting as scribe for Dr. Ariza. <Breanne Ariza - Last Filed: 12/01/19 00:08> Physical Exam Vitals: Vital Signs Temp Pulse Resp BP Pulse Ox 11/30/19 23:12 16 11/30/19 22:02 98.2 F 82 16 126/81 97 11/30/19 16:00 16 11/30/19 15:38 98.2 F 85 16 126/76 95 11/30/19 11:29 97.6 F 88 20 142/74 100 11/30/19 08:00 97.3 F L 84 16 125/72 97 11/30/19 03:55 97.8 F 74 24 138/81 93 L Intake and Output 11/30/19 11/30/19 12/01/19 14:59 22:59 06:59 Intake Total 1138.949 Output Total 520 20 Balance 618.949 -20 Intake: IV 650 Sodium Chloride 0.9% 1, 600 000 ml @ 100 mls/hr IV . Q10H [facility] Rx#:[id number] cefTRIAXone 1 gm In 50 Sodium Chloride 0.9% 50 ml @ 100 mls/hr [facility] Rx#:[id number] Intake, IV Titration 68.949 Amount Heparin Sod,Pork in 0.45% 68.949 NaCl 25,000 unit In 0.45 % NaCl 1 250ml.bag @ 18 UNITS/KG/HR 13.064 mls/hr IV .Q19H9M [facility] Rx#: [id number] Oral 420 Output: Drainage 20 20 Right Lateral Chest 20 20 Urine 500 Other: Voiding Method Toilet Toilet Toilet Bedside Commode Bedside Commode # Voids 1 Results CBC & Chem 7: 11/29/19 23:03 11/29/19 23:03 Labs: Abnormal Lab Results - Last 24 Hours (Table) 11/30/19 11/30/19 Range/Units 05:04 12:21 APTT 104.5 H* 42.1 H (22.0-30.0) sec Microbiology - Last 24 Hours (Table) 11/30/19 11:36 Gram Stain - Preliminary Breast - Right Wound Culture - Preliminary 11/29/19 22:16 Urine Culture - Preliminary Urine,Clean Catch Assessment and Plan Plan: Patient is a 54-year-old female who is status post bilateral maxillectomy done on October 27, 2019 in this patient who did have a persistent drainage from her right breast mastectomy site, patient being admitted hospital after a syncopal episode with generalized weakness and the patient complaining of more pain on the right mastectomy site she noticed to have elevated white count of 20,000 but no high-grade fever with concern for possible right mastectomy site infection plus minus a UTI elevated have a positive UA. Plan at this time is to review the CT with the radiologist to see if any of the fluid could be CT-guided drain for Gram stain and culture and treat her underlyi ng infection We will continue patient on Rocephin however add vancomycin pharmacy to dose while waiting for the culture to finalize We will follow on clinical condition and cultures to further adjust medication if needed Thank you for this consultation we will follow the patient along with you Time with Patient: Greater than 30
[2019-11-30] MEDS: traMADol 50 MG TAB PO PRN (12:15)
--- NOTE | 2019-11-30 12:35 | CONS ---
CONSULTATION This is a 54-year-old female status post recent bilateral mastectomy in October of 2019. The patient presented to the emergency department on the via EMS with complaints of weakness. She thought she might have the flu. She has a previous history of breast cancer on the right breast treated with lumpectomy 8 years ago. More recently, she had recurrence of her breast cancer in the left breast. She had a double mastectomy in early October by Dr. Wood and currently receiving treatment with her plastic surgeon, Dr. Tavarez in [place]. She apparently does have a drain in her right breast currently. She apparently complained of pain and erythema over the right breast. She was treated apparently with antibiotics in form of Keflex by Dr. Tavarez, her plastic surgeon. She apparently complained of being dizzy, lightheaded, nausea and just feeling flushed. She apparently felt weak and like she was going to pass out. She became nauseated and vomited. For that reason, she came in to be evaluated. While in the emergency room, she had a CT angiogram which showed a few small blood clots in the right lower lobe. For that reason, she was admitted. She is currently on IV heparin. She is feeling better. She does have some pain when she takes a deep breath. It is pleuritic in nature. It is on the right side of the chest. CURRENT MEDICATIONS: Her current home medications include atenolol, vitamin D3, vitamin B12, turmeric root extract, and [place]. ALLERGIES: Allergies are denied. PAST MEDICAL HISTORY: Her past medical history includes high blood pressure and breast cancer. She has cancer involving both breasts, years ago on the right breast, status post lumpectomy, more recently in the left breast, status post bilateral mastectomy by Dr. Wood. SURGICAL HISTORY: Surgical history includes not only the lumpectomy but the bilateral mastectomy and tubal ligation. SOCIAL HISTORY: Negative tobacco use. She drinks alcohol rarely. No illicit drug use. FAMILY HISTORY: Family history is unremarkable. Both mother and father were healthy. REVIEW OF SYSTEMS: CONSTITUTIONAL: Weakness, dizzy, lightheaded. NEUROLOGIC: Negative. HEENT: Negative. CARDIOVASCULAR: Pain in the right chest area, pleuritic in nature. PULMONARY: Shortness of breath. GI: Nausea, vomiting. : Negative. IMMUNOLOGIC: Negative. ENDOCRINOLOGIC: Negative. RHEUMATOLOGIC: Negative. DERMATOLOGIC: Negative. PHYSICAL EXAMINATION: VITAL SIGNS: Current vital signs are stable and include temperature 97.6, heart rate 88, respiratory rate 20, blood pressure 142/74, room air saturation 100%. GENERAL: She appears in no acute distress. HEENT: Examination is grossly unremarkable. Mucous membranes are moist. No oral lesions. NECK: Supple. Full range of motion. No adenopathy or thyromegaly. Neck veins are flat. CARDIOVASCULAR: Examination reveals regular rhythm and rate. Heart rate 88. S1, S2 normal. There is no S3, S4, murmur. LUNGS: Clear. Breath sounds equal. No pleural friction rub. Breath sounds are equal bilaterally. ABDOMEN: Soft. Bowel sounds are heard. EXTREMITIES: Are intact. No cyanosis, clubbing, or edema. SKIN: Without rash. NEUROLOGIC: Examination is brief but nonfocal. Chest x-ray shows no active disease. There is evidence of bilateral mastectomy. CT angiogram of the chest shows multiple small emboli in the right lower lobe pulmonary artery and small right-sided pleural effusion. A venous Doppler study is negative for DVT. LABORATORY DATA: Laboratory data is reviewed. White count 20.6, hemoglobin 12.7, hematocrit 38.1, platelet count normal. D-dimer was 2.5. PTT is 104.5. Sodium 135, potassium 4.2, chloride 105, CO2 is 22. Anion gap is 8. BUN and creatinine were 18 and 0.64. Urine appears to show urinary tract infection. The urine was yellow and cloudy, 2+ protein, 2+ ketones, small blood, large leukocyte esterase, 13 RBCs, 152 WBCs and rare bacteria. Lactic acid was 0.7. MEDICATIONS: Current medications are reviewed. In addition to IV heparin, she is on Rocephin, Tylenol, Tenormin, vitamin D3, vitamin B12, morphine, Narcan, Zofran, Protonix, Xarelto, and tramadol. ASSESSMENT: 1. Right lower lobe pulmonary emboli, with associated pleurisy. 2. Urinary tract infection. 3. History of hypertension. 4. Breast cancer, right breast, status post lumpectomy. 5. Recent bilateral mastectomy for breast cancer in the left breast with insertion of breast implants. 6. Active infection, right breast at the site of recent mastectomy. PLAN: The patient's Dopplers were negative. She is currently on Xarelto. She should take 15 mg twice a day for 21 days and then 20 mg once a day. She should be treated for at least 3 months. Might argue for a longer treatment given her history of breast cancer. We will continue to follow. We need to follow up with her in the office. She is on Rocephin for urinary tract infection. Additional recommendations and suggestions are forthcoming. MMODL / IJN: [id number] /
--- NOTE | 2019-11-30 13:42 | P.GSCN ---
History of Present Illness Consult date: 11/30/19 Reason for Consult: Left breast cancer History of present illness: 54-year-old female known to our service. Recently treated with bilateral ma stectomy after recent diagnosis of left breast cancer. Patient with personal history of right breast cancer in the past treated with lumpectomy and radiation therapy back then. Apparently she was seen by plastic surgery yesterday. She still has a MARY drain right chest wall with output approximately 50 mL per day. Yesterday she was concerned about low-grade fevers and some increased right- sided chest pain. Keflex was started for possibility of mild infection. At home yesterday she became more short of breath and had a syncopal episode. She came to the hospital. CT chest showed right-sided pulmonary emboli. Now on blood thinners. She was started on broad-spectrum antibiotics. White blood cell count elevated at 20,000. She is afebrile. Infectious disease has been consulted. Fluid was cultured from the MARY drain. Review of Systems The patient denies any acute changes in vision or hearing, no dysphagia or odynophagia, no dysuria or hematuria, no headache, no runny nose, no rectal bleeding or melena, no unexplained weight loss Past Medical History Past Medical History: Cancer, Hypertension Additional Past Medical History / Comment(s): Breast cancer status post right breast lumpectomy followed by an abnormal mammogram on the left and subsequently underwent bilateral simple mastectomy and sentinel lymph node biopsy left breast with concurrent reconstruction by Dr. Wood and Dr. Tavarez on 10/27/2019. History of Any Multi-Drug Resistant Organisms: None Reported Past Surgical History: Breast Surgery, Tubal Ligation Additional Past Surgical History / Comment(s): rt breast lumpectomy, double mastectomy Past Anesthesia/Blood Transfusion Reactions: Motion Sickness, Postoperative Nausea & Vomiting (PONV) Additional Past Anesthesia/Blood Transfusion Reaction / Comm: "takes me longer to wake up" Past Psychological History: No Psychological Hx Reported Smoking Status: Never smoker Past Alcohol Use History: Rare Additional Past Alcohol Use History / Comment(s): Patient is a lifelong nonsmoker, no illicit drug use, rare alcohol use. Patient lives at home with her and 2 children. Past Drug Use History: None Reported - Past Family History Mother Family Medical History: Hypertension Additional Family Medical History / Comment(s): Mother is alive with only history of hypertension. Father Family Medical History: No Reported History Additional Family Medical History / Comment(s): Father is but she does not know any of his medical history. Brother(s) Additional Family Medical History / Comment(s): Patient has 1 brother with no major medical problems. Sister(s) Additional Family Medical History / Comment(s): Patient has one sister with history of SVT status post ablations and osteoarthritis with knee replacements. Patient has 2 children with no major medical problems. Medications and Allergies Home Medications Medication Instructions Recorded Confirmed Type Atenolol 25 mg PO DAILY 08/26/19 11/30/19 History Cholecalciferol (Vitamin D3) 2,000 unit PO DAILY 09/16/19 11/30/19 History [Vitamin D3] Cyanocobalamin [Vitamin B-12] 1,000 mcg PO DAILY 09/16/19 11/30/19 History Rivaroxaban [Xarelto Starter Pack] 0 mg PO DIRECTED 30 Days #1 pack 11/30/19 Rx Allergies Allergy/AdvReac Type Severity Reaction Status Date / Time No Known Allergies Allergy Verified 11/30/19 08:15 Surgical - Exam Vital Signs Temp Pulse Resp BP Pulse Ox 97.8 F 80 16 135/75 100 11/29/19 22:47 11/29/19 22:47 11/29/19 22:47 11/29/19 22:47 11/29/19 22:47 Physical exam: General: Well-developed, well-nourished HEENT: Normocephalic, sclerae nonicteric Right chest wall incision clean and dry, minimal erythema upper aspect of the reconstructed breast, drain in place, mild tenderness, left reconstructed breast with mild tenderness, incision clean and dry Abdomen: Nontender, nondistended Extremities: No edema Neuro: Alert and oriented Results - Labs 11/29/19 23:03 11/29/19 23:03 Abnormal Lab Results - Last 24 Hours (Table) 11/29/19 11/29/19 11/29/19 Range/Units 22:16 23:03 23:03 WBC 20.6 H (3.8-10.6) k/uL Neutrophils # 18.5 H (1.3-7.7) k/uL Lymphocytes # 0.8 L (1.0-4.8) k/uL APTT (22.0-30.0) sec D-Dimer (<0.60) mg/L FEU Sodium 135 L (137-145) mmol/L BUN 18 H (7-17) mg/dL Glucose 146 H (74-99) mg/dL ALT 36 H (4-34) U/L Albumin 3.4 L (3.5-5.0) g/dL Urine Appearance Cloudy H (Clear) Urine Protein 2+ H (Negative) Urine Ketones 2+ H (Negative) Urine Blood Small H (Negative) Ur Leukocyte Esterase Large H (Negative) Urine RBC 13 H (0-5) /hpf Urine WBC 152 H (0-5) /hpf Urine Bacteria Rare H (None) /hpf Urine Mucus Rare H (None) /hpf 11/29/19 11/30/19 11/30/19 Range/Units 23:03 05:04 12:21 WBC (3.8-10.6) k/uL Neutrophils # (1.3-7.7) k/uL Lymphocytes # (1.0-4.8) k/uL APTT 104.5 H* 42.1 H (22.0-30.0) sec D-Dimer 2.50 H (<0.60) mg/L FEU Sodium (137-145) mmol/L BUN (7-17) mg/dL Glucose (74-99) mg/dL ALT (4-34) U/L Albumin (3.5-5.0) g/dL Urine Appearance (Clear) Urine Protein (Negative) Urine Ketones (Negative) Urine Blood (Negative) Ur Leukocyte Esterase (Negative) Urine RBC (0-5) /hpf Urine WBC (0-5) /hpf Urine Bacteria (None) /hpf Urine Mucus (None) /hpf Microbiology - Last 24 Hours (Table) 11/29/19 22:16 Urine Culture - Preliminary Urine,Clean Catch Diabetes panel 11/29/19 Range/Units 23:03 Sodium 135 L (137-145) mmol/L Potassium 4.2 (3.5-5.1) mmol/L Chloride 105 (98-107) mmol/L Carbon Dioxide 22 (22-30) mmol/L BUN 18 H (7-17) mg/dL Creatinine 0.64 (0.52-1.04) mg/dL Glucose 146 H (74-99) mg/dL Calcium 9.0 (8.4-10.2) mg/dL AST 36 (14-36) U/L ALT 36 H (4-34) U/L Alkaline Phosphatase 109 (38-126) U/L Total Protein 6.5 (6.3-8.2) g/dL Albumin 3.4 L (3.5-5.0) g/dL Calcium panel 11/29/19 Range/Units 23:03 Calcium 9.0 (8.4-10.2) mg/dL Albumin 3.4 L (3.5-5.0) g/dL Pituitary panel 11/29/19 Range/Units 23:03 Sodium 135 L (137-145) mmol/L Potassium 4.2 (3.5-5.1) mmol/L Chloride 105 (98-107) mmol/L Carbon Dioxide 22 (22-30) mmol/L BUN 18 H (7-17) mg/dL Creatinine 0.64 (0.52-1.04) mg/dL Glucose 146 H (74-99) mg/dL Calcium 9.0 (8.4-10.2) mg/dL Adrenal panel 11/29/19 Range/Units 23:03 Sodium 135 L (137-145) mmol/L Potassium 4.2 (3.5-5.1) mmol/L Chloride 105 (98-107) mmol/L Carbon Dioxide 22 (22-30) mmol/L BUN 18 H (7-17) mg/dL Creatinine 0.64 (0.52-1.04) mg/dL Glucose 146 H (74-99) mg/dL Calcium 9.0 (8.4-10.2) mg/dL Total Bilirubin 0.9 (0.2-1.3) mg/dL AST 36 (14-36) U/L ALT 36 H (4-34) U/L Alkaline Phosphatase 109 (38-126) U/L Total Protein 6.5 (6.3-8.2) g/dL Albumin 3.4 L (3.5-5.0) g/dL Assessment and Plan (1) Right pulmonary embolus Narrative/Plan: 54-year-old female with admission for pulmonary embolism right chest. Patient well known to our service from recent breast surgery. Patient with ongoing MARY drainage right chest wall likely secondary to previous right chest wall radiation. Possibility of infection at the reconstructed breast remains given the leukocytosis however patient is afebrile and elevated white blood cell count could be on the basis of acute PE. CAT scan was reviewed. Films were actually shared with Dr. Tavarez who I discussed the case with. No drainable collection identified on recent CAT scan chest. Continue empiric antibiotics. Keep drain in place for now. May begin oral anticoagulation. We'll follow. Current Visit: Yes Status: Acute Code(s): I26.99 - OTHER PULMONARY EMBOLISM WITHOUT ACUTE COR PULMONALE SNOMED Code(s): 33404428
[2019-11-30] MEDS: RIVAROXABAN 15 MG TAB PO SCH ×2 (13:45→22:34)
[2019-11-30] MEDS ORDERED: ONDANSETRON 4 MG/2 ML VIAL IVP STA (16:16)
[2019-11-30] MEDS: BUTALB/APAP/CAFF 50-325-40MG TAB PO PRN (16:21)
[2019-12-01] MEDS ORDERED: VANCOMYCIN IV PER PHARMACY 1 EACH MISC MISCELLANE PRN (00:03)
[2019-12-01] MEDS: traMADol 50 MG TAB PO PRN ×2 (00:16→08:46)
[2019-12-01] MEDS: MORPHINE SULFATE 4 MG/ML SYRINGE IV PRN ×3 (00:51→21:44)
[2019-12-01] MEDS ORDERED: VANCOMYCIN 1,250 MG in SODIUM CHLORIDE 0.9% 250 ML IVPB ONE (01:00)
[2019-12-01] MEDS: SODIUM CHLORIDE 0.9% 1,000 ML IV SCH (05:57)
[2019-12-01] MEDS: BUTALB/APAP/CAFF 50-325-40MG TAB PO PRN ×2 (06:11→13:00)
[2019-12-01] MEDS: ONDANSETRON 4 MG/2 ML VIAL IVP PRN (06:12)
[2019-12-01 07:04] LABS: Basophils % (A) 0 %; Eosinophils # (A) 0.2 k/uL (0-0.7); Eosinophils % (A) 2 %; HCT 33.8 % (34.0-46.0); HGB 10.4 gm/dL (11.4-16.0); Lymphocytes # (A) 1.5 k/uL (1.0-4.8); Lymphocytes % (A) 14 %; MCH 28.3 pg (25.0-35.0); MCHC 30.8 g/dL (31.0-37.0); MCV 91.7 fL (80.0-100.0); Mean Platelet Volume 7.6; Monocytes # (A) 0.6 k/uL (0-1.0); Monocytes % (A) 5 %; Neutrophils # (A) 8.4 k/uL (1.3-7.7); Neutrophils % (A) 77 %; Platelet Count 205 k/uL (150-450); RBC 3.69 m/uL (3.80-5.40); RDW 13.3 % (11.5-15.5); WBC 10.9 k/uL (3.8-10.6)
[2019-12-01] MEDS: HYDROcodone/APAP 5-325MG 1 EACH TAB PO PRN ×3 (10:21→23:34)
[2019-12-01] MEDS: CYANOCOBALAMIN 500 MCG TAB PO SCH (10:28)
[2019-12-01] MEDS: CHOLECALCIFEROL 1,000 UNIT TAB PO SCH (10:29)
[2019-12-01] MEDS: ATENOLOL 25 MG TAB PO SCH (10:29)
[2019-12-01] MEDS: PANTOPRAZOLE 40 MG TABLET PO SCH (10:30)
[2019-12-01] MEDS: RIVAROXABAN 15 MG TAB PO SCH ×2 (10:47→17:53)
--- NOTE | 2019-12-01 11:46 | P.PN ---
Subjective Progress Note Date: 12/01/19 Principal diagnosis: Right-sided pulmonary embolism Patient had a increase in right-sided chest pain last night for a short while. That is improved. Anxiety was quite bad throughout the night. She is afebrile. White blood cell count is now down to 10. Remains on anticoagulation. MARY drain remained serosanguineous Objective - Vital Signs Vital signs: Vital Signs Temp 98.2 F 12/01/19 07:00 Pulse 98 12/01/19 09:38 Resp 18 12/01/19 07:00 BP 145/89 12/01/19 09:38 Pulse Ox 93 L 12/01/19 09:39 Intake & Output 11/30/19 12/01/19 12/01/19 18:59 06:59 18:59 Intake Total 8093.480 5325 Output Total 540 20 30 Balance 691.723 8184 -30 Intake: IV 650 1200 Sodium Chloride 0.9% 1, 600 1200 000 ml @ 100 mls/hr IV . Q10H [facility] Rx#:[id number] cefTRIAXone 1 gm In 50 Sodium Chloride 0.9% 50 ml @ 100 mls/hr IVPB ONCE STA Rx#:[id number] Intake, IV Titration 68.949 Amount Heparin Sod,Pork in 0.45% 68.949 NaCl 25,000 unit In 0.45 % NaCl 1 250ml.bag @ 18 UNITS/KG/HR 13.064 mls/hr IV .Q19H9M [facility] Rx#: [id number] Oral 420 Output: Drainage 40 20 30 Right Lateral Chest 40 20 30 Urine 500 Other: Voiding Method Toilet Toilet Toilet Bedside Commode Bedside Commode # Voids 1 1 - Exam Right chest wall slightly more tender than left, very subtle erythema, no fluctuance - Labs CBC & Chem 7: 12/01/19 06:19 11/29/19 23:03 Labs: Abnormal Lab Results - Last 24 Hours (Table) 11/30/19 12/01/19 Range/Units 12:21 06:19 WBC 10.9 H (3.8-10.6) k/uL RBC 3.69 L (3.80-5.40) m/uL Hgb 10.4 L (11.4-16.0) gm/dL Hct 33.8 L (34.0-46.0) % MCHC 30.8 L (31.0-37.0) g/dL Neutrophils # 8.4 H (1.3-7.7) k/uL APTT 42.1 H (22.0-30.0) sec Microbiology - Last 24 Hours (Table) 11/29/19 23:28 Blood Culture - Preliminary Blood No Growth after 24 hours 11/30/19 11:36 Gram Stain - Preliminary Breast - Right Wound Culture - Preliminary 11/29/19 22:16 Urine Culture - Preliminary Urine,Clean Catch Assessment and Plan (1) Right pulmonary embolus Narrative/Plan: Continue analgesics for right-sided pulmonary embolism. Suspect most of the pain is related to the PE. Infection has not been entirely excluded. Continue empiric antibiotics. Keep drain for now. Current Visit: Yes Status: Acute Code(s): I26.99 - OTHER PULMONARY EMBOLISM WITHOUT ACUTE COR PULMONALE SNOMED Code(s): 02681886
--- NOTE | 2019-12-01 12:44 | P.PN ---
Subjective Progress Note Date: 12/01/19 This is a 54-year-old female patient of Dr. Yee with past medical history of hypertension and breast cancer status post right breast lumpectomy followed by an abnormal mammogram on the left and subsequently underwent bilateral simple mastectomy and sentinel lymph node biopsy left breast with c oncurrent reconstruction by Dr. Wood and Dr. Tavarez on 10/27/2019. Patient states that she had the MARY drain on the left side removed shortly after surgery. She has been following with Dr. Tavarez on a weekly basis due to erythema and pain to the right breast. She has a MARY drain that has started draining a cloudy substance between a few days and one week ago. Patient states that last week for the entire week she was not feeling very well was feeling weak in general and then on Friday she started developing body aches, sweats and nausea. She was also feeling dizzy and lightheaded. She was having chills and cold sweats. She denies any black or bloody stools. Yesterday she states she was gasping for air and she had pain in her right shoulder and back. She got up to the bathroom and passed out and her carried her to the bed. Patient got up to get dressed and started vomiting. EMS was called and brought her into the hospital for evaluation. Patient was found to have leukocytosis of 20.6, hemoglobin was 12.7, platelet count 218. Sodium 135, potassium 4.2, chloride 105, CO2 22, BUN 18 creatinine 0.64, blood sugar 146. ALT 36. Urinalysis cloudy, protein 2+, leukoesterase large, WBC 152, bacteria rare. D-dimer was elevated at 2.5, lactic acid 0.7. EKG was a normal sinus rhythm with nonspecific T-wave abnormality. Heart rate was 87. Chest x-ray shows no active cardiopulmonary disease. Bilateral mastectomy. Normal heart. CTA of the chest showed evidence of multiple small emboli in the right lower lobe pulmonary artery. Mild pleural effusion. Basilar mild infiltrate and oriented lactose his right lower lobe. Patient was also found to have cellulitis of the right breast mastectomy site. Patient was started on Rocephin and heparin drip. Consult in place with pulmonary medicine, Dr. Wood and consult added for Dr. Ariza. Ultrasound of the bilateral lower extremities negative for DVT. 12/01: Patient has been seen by Drs. Wood and To. Vancomycin has been started. Cultures are in progress. Plan use to maintain MARY drain. Blood culture no growth at 24h. Patient is currently on Xarelto which was started yesterday afternoon. Xarelto is covered by her insurance. Patient has been seen by Dr. Tolbert. IVF will be discontinued. Patient states that she had a rough night due to pain control, right-sided chest pain, headache and nausea. Patient did not take pain medication on time and pain was out of control. She does not think the tramadol is effective. Tramadol has been changed to [place]. She is reaching 1000 ML's on incentive spirometry. Patient is been afebrile, blood pressure 124/77, heart rate 105, pulse ox 93% on room air. Repeat lab work reveals WBC 10.9, hemoglobin 10.4 and platelet count 205.. Review of Systems Constitutional: deniess anorexia, denies chills, denies fatigue, denies lethargy, denies malaise, denies night sweats, denies poor appetite, denies sweats, denies weakness, Denies fever Eyes: denies blurred vision, denies pain Ears, nose, mouth and throat: Denies vertigo, Denies dysphagia, reports headache, Denies nasal congestion, Denies nasal discharge, Denies sore throat Breasts: right: skin changes Cardiovascular: denies lightheadedness, denies shortness of breath, denies syncope, reports chest pain, Denies dyspnea on exertion, Denies irregular heart beat Respiratory: denies dyspnea, Reports pain on inspiration, reports chest pain, D enies cough, Denies cough with sputum, Denies excessive sputum, Denies hemoptysis, Denies home oxygen, Denies respiratory infections, Denies wheezing Gastrointestinal: Reports loss of appetite, Reports nausea, denies vomiting, Denies abdominal pain, Denies diarrhea Genitourinary: Denies dysuria, Denies hematuria Musculoskeletal: Reports muscle weakness, Denies frequent falls, Denies gait dysfunction, Denies myalgias Integumentary: Reports color changes, Reports wounds, Denies pruritus, Denies ra sh Neurological: Denies change in mentation, Denies change in speech, Denies numbness, Denies weakness Psychiatric: Denies anxiety, Denies depression Endocrine: Denies fatigue, Denies weight change Objective - Vital Signs Vital signs: Vital Signs Temp 98.2 F 12/01/19 07:00 Pulse 105 H 12/01/19 07:00 Resp 18 12/01/19 07:00 BP 124/77 12/01/19 07:00 Pulse Ox 93 L 12/01/19 07:00 Intake & Output 11/30/19 12/01/19 12/01/19 18:59 06:59 18:59 Intake Total 2227.174 1245 Output Total 540 20 30 Balance 539.041 7368 -30 Intake: IV 650 1200 Sodium Chloride 0.9% 1, 600 1200 000 ml @ 100 mls/hr IV . Q10H [facility] Rx#:[id number] cefTRIAXone 1 gm In 50 Sodium Chloride 0.9% 50 ml @ 100 mls/hr IVPB ONCE STA Rx#:[id number] Intake, IV Titration 68.949 Amount Heparin Sod,Pork in 0.45% 68.949 NaCl 25,000 unit In 0.45 % NaCl 1 250ml.bag @ 18 UNITS/KG/HR 13.064 mls/hr IV .Q19H9M [facility] Rx#: [id number] Oral 420 Output: Drainage 40 20 30 Right Lateral Chest 40 20 30 Urine 500 Other: Voiding Method Toilet Toilet Toilet Bedside Commode Bedside Commode # Voids 1 - Exam Gen: This is a 54-year-old female. Patient is resting in bed and appears to be comfortable and in no acute distress. No dyspnea noted. HEENT: Head is atraumatic, normocephalic. Pupils equal, round. Sclerae is anicteric. Oral mucous membranes are moist. No thrush noted. NECK: Supple. No JVD. No lymphadenopathy. No thyromegaly. LUNGS: Clear to auscultation. No wheezes or rhonchi. No intercostal retractions. HEART: Regular rate and rhythm. No murmur. BREASTS: The patient has had bilateral mastectomy. Right side has mild erythema. No open wounds or drainage noted. MARY drain with serosanguineous fluid. ABDOMEN: Soft. Bowel sounds are present. No masses. No tenderness. EXTREMITIES: No pedal edema. No calf tenderness. Dorsalis pedis +2 bilaterally . NEUROLOGICAL: Patient is awake, alert and oriented x3. Cranial nerves 2 through 12 are grossly intact. - Labs CBC & Chem 7: 12/01/19 06:19 11/29/19 23:03 Labs: Abnormal Lab Results - Last 24 Hours (Table) 11/30/19 12/01/19 Range/Units 12:21 06:19 WBC 10.9 H (3.8-10.6) k/uL RBC 3.69 L (3.80-5.40) m/uL Hgb 10.4 L (11.4-16.0) gm/dL Hct 33.8 L (34.0-46.0) % MCHC 30.8 L (31.0-37.0) g/dL Neutrophils # 8.4 H (1.3-7.7) k/uL APTT 42.1 H (22.0-30.0) sec Microbiology - Last 24 Hours (Table) 11/29/19 23:28 Blood Culture - Preliminary Blood No Growth after 24 hours 11/30/19 11:36 Gram Stain - Preliminary Breast - Right Wound Culture - Preliminary 11/29/19 22:16 Urine Culture - Preliminary Urine,Clean Catch Assessment and Plan Plan: 1. SIRS and Sepsis secondary to acute pulmonary embolism and cellulitis right breast. 2. Acute pulmonary embolism. The patient has been started on heparin drip. Patient seen by Dr. Tolbert. Patient transitioned to Xarelto 15 mg twice daily for 21 days then 20 mg daily. Ultrasound of the bilateral lower extremities negative for DVT. 3. Cellulitis right breast at mastectomy site. Patient is currently on Rocephin and Vancomycin. Consult with Dr. Ariza and Dr. Wood appreciated. Fluid culture and blood culture in progress. 4. Urinary tract infection. Urine culture in progress. Continue Rocephin. 5. Hypertension. Resume atenolol 25 mg daily. 6. History of bilateral breast cancer status post simple bilateral mastectomy. 7. GI prophylaxis and GERD. Protonix. 8. DVT prophylaxis. Xarelto. Discharge plan: Return home Impression and plan of care have been directed as dictated by the signing physician. Maria Alejandra Fox nurse practitioner acting as scribe for signing physician.
[2019-12-01] MEDS: VANCOMYCIN 1,000 MG in SODIUM CHLORIDE 0.9% 250 ML IVPB SCH (13:01)
--- NOTE | 2019-12-01 13:25 | P.PN ---
Subjective Progress Note Date: 12/01/19 Principal diagnosis: Right lower lobe pulmonary emboli with associated pleurisy On 12/01/2019 patient seen in follow-up on general medical floor, she is calm and comfortable, awake and alert, currently on room air, room air pulse ox is 93%, hemodynamically stable, afebrile, patient has been transitioned to oral anticoagulants in the form of Zarontin, heparin drip has been discontinued. Ultrasound Dopplers of lower extremities were negative for DVT. Lung sounds are clear, patient remains on empiric IV antibiotics for recent history of bilateral mastectomy, MARY drain is in place and draining small amount of serosanguineous output. No fever or chills, no hemoptysis, drainage from the MARY drain in the right breast showed presumptive staph aureus, final cultures pending Objective - Vital Signs Vital signs: Vital Signs Temp 98.2 F 12/01/19 07:00 Pulse 98 12/01/19 09:38 Resp 18 12/01/19 07:00 BP 145/89 12/01/19 09:38 Pulse Ox 93 L 12/01/19 09:39 Intake & Output 11/30/19 12/01/19 12/01/19 18:59 06:59 18:59 Intake Total 6046.055 5407 Output Total 540 20 30 Balance 769.484 9016 -30 Intake: IV 650 1200 Sodium Chloride 0.9% 1, 600 1200 000 ml @ 100 mls/hr IV . Q10H [facility] Rx#:[id number] cefTRIAXone 1 gm In 50 Sodium Chloride 0.9% 50 ml @ 100 mls/hr IVPB ONCE STA Rx#:[id number] Intake, IV Titration 68.949 Amount Heparin Sod,Pork in 0.45% 68.949 NaCl 25,000 unit In 0.45 % NaCl 1 250ml.bag @ 18 UNITS/KG/HR 13.064 mls/hr IV .Q19H9M [facility] Rx#: [id number] Oral 420 Output: Drainage 40 20 30 Right Lateral Chest 40 20 30 Urine 500 Other: Voiding Method Toilet Toilet Toilet Bedside Commode Bedside Commode # Voids 1 1 - Exam GENERAL EXAM: Alert, active, comfortable in no apparent distress. HEAD: Normocephalic/atraumatic. EYES: Normal reaction of pupils, equal size. Conjunctiva pink, sclera white. NOSE: Clear with pink turbinates. THROAT: No erythema or exudates. NECK: No masses, no JVD, no thyroid enlargement, no adenopathy. CHEST: Symmetrical expansion. Recent history of bilateral mastectomy, MARY drain is present in the right breast with small amount of serous output LUNGS: Equal air entry with no crackles, wheeze, rhonchi or dullness. CVS: Regular rate and rhythm, normal S1 and S2, no gallops, no murmurs, no rubs ABDOMEN: Soft, nontender. No hepatosplenomegaly, normal bowel sounds, no guarding or rigidity. EXTREMITIES: No clubbing, no edema, no cyanosis, 2+ pulses and upper and lower extremities. MUSCULOSKELETAL: Muscle strength and tone normal. SPINE: No scoliosis or deformity SKIN: No rashes CENTRAL NERVOUS SYSTEM: Alert and oriented -3. No focal deficits, tone is normal in all 4 extremities. PSYCHIATRIC: Alert and oriented -3. Appropriate affect. Intact judgment and insight. - Labs CBC & Chem 7: 12/01/19 06:19 11/29/19 23:03 Labs: Abnormal Lab Results - Last 24 Hours (Table) 12/01/19 Range/Units 06:19 WBC 10.9 H (3.8-10.6) k/uL RBC 3.69 L (3.80-5.40) m/uL Hgb 10.4 L (11.4-16.0) gm/dL Hct 33.8 L (34.0-46.0) % MCHC 30.8 L (31.0-37.0) g/dL Neutrophils # 8.4 H (1.3-7.7) k/uL Microbiology - Last 24 Hours (Table) 11/30/19 11:36 Gram Stain - Preliminary Breast - Right Wound Culture - Preliminary Presumptive Staph aureus 11/29/19 23:28 Blood Culture - Preliminary Blood No Growth after 24 hours 11/29/19 22:16 Urine Culture - Preliminary Urine,Clean Catch Assessment and Plan Plan: Assessment: #1. Acute right lower lobe pulmonary emboli with associated pleurisy #2. Recent history of bilateral mastectomy for breast cancer in the left breast with insertion of breast implants #3. History of right breast cancer status post lumpectomy #4. Urinary tract infection #5. History of hypertension Plan: Continue oral Xarelto, hemodynamically patient is stable, no dyspnea, stable oxygenation, no complaints of hemoptysis, lower extremity Dopplers were negative for DVT, patient continues on empiric antibiotics, right breast MARY drain culture is positive for presumptive staph aureus, no fever or chills. Surgical services are following I performed a history & physical examination of the patient and discussed their management with my nurse practitioner, Mandy Joseph. I reviewed the nurse practitioner's note and agree with the documented findings and plan of care. Lung sounds are positive for clear breath sounds. The findings and the impression was discussed with the patient. I attest to the documentation by the nurse practitioner. Time with Patient: Less than 30
[2019-12-01] MEDS ORDERED: KETOROLAC 30 MG/ML 1 ML VIAL IVP PRN (16:59)
--- NOTE | 2019-12-01 23:11 | PN ---
PROGRESS NOTE DATE OF SERVICE: 12/01/2019 REASON FOR FOLLOWUP: 1. Urinary tract infection. 2. Right mastectomy and cellulitis. INTERVAL HISTORY: The patient is currently afebrile. The patient is breathing more comfortably. The patient denies having any chest pain. No significant cough or sputum production. No abdominal pain. No diarrhea. PHYSICAL EXAMINATION: Blood pressure 131/80 with a pulse of 79, temperature 98.2. She is 100% on room air. General description is a middle-aged female up in the bed in no distress. Respiratory system: Unlabored breathing. Decreased breath sounds at bases. No wheeze. Heart S1, S2. Regular rate and rhythm. Abdomen soft, no tenderness. Extremities: No edema of the feet. LABS: Hemoglobin is 10.4, white count 10.9. Urine culture so far negative. The right breast drainage catheter site showing presumptive Staph aureus. DIAGNOSTIC IMPRESSION AND PLAN: Patient admitted to the hospital with possible syncopal episode in this patient who did have evidence of bilateral pulmonary embolism and recent surgery, status post bilateral mastectomy and chronic drainage from the right mastectomy site. The CT did not show significant fluid collection however the culture positive for Staph Aureus is concerning. We will keep the patient on vancomycin. Will discuss further with surgery and monitor clinical course closely. MMODL / IJN: [id number] / AUGUST
[2019-12-02] MEDS: VANCOMYCIN 1,000 MG in SODIUM CHLORIDE 0.9% 250 ML IVPB SCH (00:45)
[2019-12-02] MEDS: HYDROcodone/APAP 5-325MG 1 EACH TAB PO PRN ×3 (06:10→22:01)
[2019-12-02 06:56] LABS: Basophils % (A) 0 %; Eosinophils # (A) 0.3 k/uL (0-0.7); Eosinophils % (A) 4 %; HCT 31.5 % (34.0-46.0); HGB 10.3 gm/dL (11.4-16.0); Lymphocytes # (A) 1.6 k/uL (1.0-4.8); Lymphocytes % (A) 21 %; MCH 29.5 pg (25.0-35.0); MCHC 32.5 g/dL (31.0-37.0); MCV 90.8 fL (80.0-100.0); Mean Platelet Volume 7.7; Monocytes # (A) 0.4 k/uL (0-1.0); Monocytes % (A) 5 %; Neutrophils % (A) 68 %; Platelet Count 247 k/uL (150-450); RBC 3.47 m/uL (3.80-5.40); WBC 7.4 k/uL (3.8-10.6)
[2019-12-02 06:57] LABS: African American GFR (CKD) >90 (>60 ml/min/1.73 sqM); Non-African American GFR(CKD) >90 (>60 ml/min/1.73 sqM)
[2019-12-02] MEDS: ATENOLOL 25 MG TAB PO SCH (09:35)
[2019-12-02] MEDS: RIVAROXABAN 15 MG TAB PO SCH ×2 (09:35→16:54)
[2019-12-02] MEDS: PANTOPRAZOLE 40 MG TABLET PO SCH (09:36)
[2019-12-02] MEDS: CHOLECALCIFEROL 1,000 UNIT TAB PO SCH (09:37)
[2019-12-02] MEDS: CYANOCOBALAMIN 500 MCG TAB PO SCH (09:37)
[2019-12-02] MEDS: BUTALB/APAP/CAFF 50-325-40MG TAB PO PRN ×2 (11:16→18:15)
--- NOTE | 2019-12-02 11:19 | P.PN ---
<Sun De Jesus - Last Filed: 12/02/19 11:16> Subjective Progress Note Date: 12/02/19 CHIEF COMPLAINT: right pulmonary embolus HISTORY OF PRESENT ILLNESS: Patient examined this morning at the bedside. She reports her pain is tolerable. MARY with serous drainage. Patient reports decreased in overall amount of drainage. WBC 7.4. Vital signs stable. PHYSICAL EXAM: VITAL SIGNS: Reviewed. GENERAL: Well-developed in no acute distress. HEENT: No sclera icterus. Extraocular movements grossly intact. Moist buccal mucosa. Head is atraumatic, normocephalic. ABDOMEN: Soft. Nondistended. Nontender. CHEST: MARY with serous drainage. NEUROLOGIC: Alert and oriented. Cranial nerves II through XII grossly intact. ASSESSMENT: 1. Right pulmonary embolus PLAN: Continue antibiotics. Monitor WBC Continue to monitor MARY drain Plans underway for discharge home tomorrow per internal medicine Nurse practitioner note has been reviewed by physician. Signing provider agrees with the documented findings, assessment, and plan of care. Objective - Vital Signs Vital signs: Vital Signs Temp 98.0 F 12/02/19 07:00 Pulse 81 12/02/19 07:00 Resp 16 12/02/19 07:00 BP 158/95 12/02/19 07:00 Pulse Ox 97 12/02/19 07:00 Intake & Output 12/01/19 12/02/19 12/02/19 18:59 06:59 18:59 Intake Total 2260 250 Output Total 50 55 10 Balance 2210 -55 240 Intake: Intake, IV Titration 1020 Amount Sodium Chloride 0.9% 1, 720 000 ml @ 100 mls/hr IV . Q10H [facility] Rx#:[id number] Vancomycin 1,000 mg In 250 Sodium Chloride 0.9% 250 ml @ 125 mls/hr IVPB Q12H [facility] Rx#:[id number] cefTRIAXone 1 gm In 50 Sodium Chloride 0.9% 50 ml @ 100 mls/hr IVPB Q12H [facility] Rx#:[id number] Oral 1240 250 Output: Drainage 50 55 10 Right Lateral Chest 50 55 10 Other: Voiding Method Toilet # Voids 2 1 # Bowel Movements 0 - Labs CBC & Chem 7: 12/02/19 06:18 12/02/19 06:18 Labs: Abnormal Lab Results - Last 24 Hours (Table) 12/02/19 Range/Units 06:18 RBC 3.47 L (3.80-5.40) m/uL Hgb 10.3 L (11.4-16.0) gm/dL Hct 31.5 L (34.0-46.0) % Microbiology - Last 24 Hours (Table) 11/30/19 11:36 Gram Stain - Final Breast - Right Wound Culture - Final Staphylococcus aureus 11/29/19 23:28 Blood Culture - Preliminary Blood No Growth after 48 hours 11/29/19 22:16 Urine Culture - Final Urine,Clean Catch <ValentinileneCarlos - Last Filed: 12/02/19 15:05> Subjective As above. Patient seems to be improving. No shortness of breath. Chest pain improved. MARY output remains cloudy serous. She is afebrile. White blood cell count normal. Continue empiric antibiotics. Spoke with infectious disease. He plans to discuss this case also with plastic surgery. 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 Continue anticoagulation. Follow-up with plastics post discharge. I will be out of town after this evening. We'll sign off. Please call service if needed. Objective - Vital Signs Vital signs: Vital Signs Temp 98.0 F 12/02/19 07:00 Pulse 81 12/02/19 07:00 Resp 16 12/02/19 07:00 BP 158/95 12/02/19 07:00 Pulse Ox 97 12/02/19 07:00 Intake & Output 12/01/19 12/02/19 12/02/19 18:59 06:59 18:59 Intake Total 2260 250 Output Total 50 55 10 Balance 2210 -55 240 Intake: Intake, IV Titration 1020 Amount Sodium Chloride 0.9% 1, 720 000 ml @ 100 mls/hr IV . Q10H [facility] Rx#:[id number] Vancomycin 1,000 mg In 250 Sodium Chloride 0.9% 250 ml @ 125 mls/hr IVPB Q12H [facility] Rx#:[id number] cefTRIAXone 1 gm In 50 Sodium Chloride 0.9% 50 ml @ 100 mls/hr IVPB Q12H [facility] Rx#:[id number] Oral 1240 250 Output: Drainage 50 55 10 Right Lateral Chest 50 55 10 Other: Voiding Method Toilet # Voids 2 1 2 # Bowel Movements 0 - Labs CBC & Chem 7: 12/02/19 06:18 12/02/19 06:18 Labs: Abnormal Lab Results - Last 24 Hours (Table) 12/02/19 Range/Units 06:18 RBC 3.47 L (3.80-5.40) m/uL Hgb 10.3 L (11.4-16.0) gm/dL Hct 31.5 L (34.0-46.0) % Microbiology - Last 24 Hours (Table) 11/30/19 11:36 Gram Stain - Final Breast - Right Wound Culture - Final Staphylococcus aureus 11/29/19 23:28 Blood Culture - Preliminary Blood No Growth after 48 hours 11/29/19 22:16 Urine Culture - Final Urine,Clean Catch Assessment and Plan (1) Right pulmonary embolus Current Visit: Yes Status: Acute Code(s): I26.99 - OTHER PULMONARY EMBOLISM WITHOUT ACUTE COR PULMONALE SNOMED Code(s): 16261950
--- NOTE | 2019-12-02 12:17 | P.PN ---
Subjective Progress Note Date: 12/02/19 This is a 54-year-old female patient of Dr. Yee with past medical history of hypertension and breast cancer status post right breast lumpectomy followed by an abnormal mammogram on the left and subsequently underwent bilateral simple mastectomy and sentinel lymph node biopsy left breast with c oncurrent reconstruction by Dr. Wood and Dr. Tavarez on 10/27/2019. Patient states that she had the MARY drain on the left side removed shortly after surgery. She has been following with Dr. Tavarez on a weekly basis due to erythema and pain to the right breast. She has a MARY drain that has started draining a cloudy substance between a few days and one week ago. Patient states that last week for the entire week she was not feeling very well was feeling weak in general and then on Friday she started developing body aches, sweats and nausea. She was also feeling dizzy and lightheaded. She was having chills and cold sweats. She denies any black or bloody stools. Yesterday she states she was gasping for air and she had pain in her right shoulder and back. She got up to the bathroom and passed out and her carried her to the bed. Patient got up to get dressed and started vomiting. EMS was called and brought her into the hospital for evaluation. Patient was found to have leukocytosis of 20.6, hemoglobin was 12.7, platelet count 218. Sodium 135, potassium 4.2, chloride 105, CO2 22, BUN 18 creatinine 0.64, blood sugar 146. ALT 36. Urinalysis cloudy, protein 2+, leukoesterase large, WBC 152, bacteria rare. D-dimer was elevated at 2.5, lactic acid 0.7. EKG was a normal sinus rhythm with nonspecific T-wave abnormality. Heart rate was 87. Chest x-ray shows no active cardiopulmonary disease. Bilateral mastectomy. Normal heart. CTA of the chest showed evidence of multiple small emboli in the right lower lobe pulmonary artery. Mild pleural effusion. Basilar mild infiltrate and oriented lactose his right lower lobe. Patient was also found to have cellulitis of the right breast mastectomy site. Patient was started on Rocephin and heparin drip. Consult in place with pulmonary medicine, Dr. Wood and consult added for Dr. Ariza. Ultrasound of the bilateral lower extremities negative for DVT. 12/01: Patient has been seen by Drs. Wood and To. Vancomycin has been started. Cultures are in progress. Plan use to maintain MARY drain. Blood culture no growth at 24h. Patient is currently on Xarelto which was started yesterday afternoon. Xarelto is covered by her insurance. Patient has been seen by Dr. Tolbert. IVF will be discontinued. Patient states that she had a rough night due to pain control, right-sided chest pain, headache and nausea. Patient did not take pain medication on time and pain was out of control. She does not think the tramadol is effective. Tramadol has been changed to [place]. She is reaching 1000 ML's on incentive spirometry. Patient is been afebrile, blood pressure 124/77, heart rate 105, pulse ox 93% on room air. Repeat lab work reveals WBC 10.9, hemoglobin 10.4 and platelet count 205.. 12/02: Patient has been afebrile, blood pressure 158/95, pulse ox 97% on room air, heart rate 81. Previous blood pressure 133/79. Repeat blood work reveals white count of 7.4, hemoglobin 10.3, creatinine 0.63. Urine culture finalized as no growth at 18 hours. Blood culture no growth after 48 hours. Breast culture is presumptive staph aureus. She is reaching 2000ml on IS. Patient states that [place] helped with her pain last pm and she had a much better night. Anticipate discharge home tomorrow. Review of Systems Constitutional: deniess anorexia, denies chills, denies fatigue, denies lethargy, denies malaise, denies night sweats, denies poor appetite, denies sweats, denies weakness, Denies fever Eyes: denies blurred vision, denies pain Ears, nose, mouth and throat: Denies vertigo, Denies dysphagia, reports headache, Denies nasal congestion, Denies nasal discharge, Denies sore throat Breasts: right: skin changes-improving Cardiovascular: denies lightheadedness, denies shortness of breath, denies syncope, reports chest pain, Denies dyspnea on exertion, Denies irregular heart beat Respiratory: denies dyspnea, Reports pain on inspiration, reports chest pain, Denies cough, Denies cough with sputum, Denies excessive sputum, Denies hemoptysis, Denies home oxygen, Denies respiratory infections, Denies wheezing Gastrointestinal: Denies loss of appetite, Denies nausea, denies vomiting, Denies abdominal pain, Denies diarrhea Genitourinary: Denies dysuria, Denies hematuria Musculoskeletal: Reports muscle weakness, Denies frequent falls, Denies gait dysfunction, Denies myalgias Integumentary: Reports color changes, Reports wounds, Denies pruritus, Denies rash Neurological: Denies change in mentation, Denies change in speech, Denies numbness, Denies weakness Psychiatric: Denies anxiety, Denies depression Endocrine: Denies fatigue, Denies weight change Objective - Vital Signs Vital signs: Vital Signs Temp 98.0 F 12/02/19 07:00 Pulse 81 12/02/19 07:00 Resp 16 12/02/19 07:00 BP 158/95 12/02/19 07:00 Pulse Ox 97 12/02/19 07:00 Intake & Output 12/01/19 12/02/19 12/02/19 18:59 06:59 18:59 Intake Total 2260 250 Output Total 50 55 Balance 2210 -55 250 Intake: Intake, IV Titration 1020 Amount Sodium Chloride 0.9% 1, 720 000 ml @ 100 mls/hr IV . Q10H [facility] Rx#:[id number] Vancomycin 1,000 mg In 250 Sodium Chloride 0.9% 250 ml @ 125 mls/hr IVPB Q12H [facility] Rx#:[id number] cefTRIAXone 1 gm In 50 Sodium Chloride 0.9% 50 ml @ 100 mls/hr IVPB Q12H [facility] Rx#:[id number] Oral 1240 250 Output: Drainage 50 55 Right Lateral Chest 50 55 Other: Voiding Method Toilet # Voids 2 1 # Bowel Movements 0 - Exam Gen: This is a 54-year-old female. Patient is resting in bed and appears to be comfortable and in no acute distress. No dyspnea noted. HEENT: Head is atraumatic, normocephalic. Pupils equal, round. Sclerae is anicteric. Oral mucous membranes are moist. No thrush noted. NECK: Supple. No JVD. No lymphadenopathy. No thyromegaly. LUNGS: Clear to auscultation. No wheezes or rhonchi. No intercostal retractions. HEART: Regular rate and rhythm. No murmur. BREASTS: The patient has had bilateral mastectomy. Right side has no erythema. No open wounds or drainage noted. MARY drain with serosanguineous fluid. ABDOMEN: Soft. Bowel sounds are present. No masses. No tenderness. EXTREMITIES: No pedal edema. No calf tenderness. Dorsalis pedis +2 bilaterally. NEUROLOGICAL: Patient is awake, alert and oriented x3. Cranial nerves 2 through 12 are grossly intact. - Labs CBC & Chem 7: 12/02/19 06:18 12/02/19 06:18 Labs: Abnormal Lab Results - Last 24 Hours (Table) 12/02/19 Range/Units 06:18 RBC 3.47 L (3.80-5.40) m/uL Hgb 10.3 L (11.4-16.0) gm/dL Hct 31.5 L (34.0-46.0) % Microbiology - Last 24 Hours (Table) 11/29/19 23:28 Blood Culture - Preliminary Blood No Growth after 48 hours 11/29/19 22:16 Urine Culture - Final Urine,Clean Catch 11/30/19 11:36 Gram Stain - Preliminary Breast - Right Wound Culture - Preliminary Presumptive Staph aureus Assessment and Plan Plan: 1. SIRS and Sepsis secondary to acute pulmonary embolism and cellulitis right breast. 2. Acute pulmonary embolism. The patient has been started on heparin drip. Patient seen by Dr. Tolbert. Patient transitioned to Xarelto 15 mg twice daily for 21 days then 20 mg daily. Ultrasound of the bilateral lower extremities negative for DVT. 3. Cellulitis right breast at mastectomy site. Patient is currently on Rocephin and Vancomycin. Consult with Dr. Ariza and Dr. Wood appreciated. Fluid culture and blood culture in progress. 4. Urinary tract infection. Urine culture in progress. Continue Rocephin. 5. Hypertension. Resume atenolol 25 mg daily. 6. History of bilateral breast cancer status post simple bilateral mastectomy. 7. GI prophylaxis and GERD. Protonix. 8. DVT prophylaxis. Xarelto. Discharge plan: Return home on Friday Impression and plan of care have been directed as dictated by the signing physician. Maria Alejandra Fox nurse practitioner acting as scribe for signing phys ician.
--- NOTE | 2019-12-02 12:27 | P.PN ---
Subjective Progress Note Date: 12/02/19 Principal diagnosis: Right lower lobe pulmonary emboli with associated pleurisy On 12/01/2019 patient seen in follow-up on general medical floor, she is calm and comfortable, awake and alert, currently on room air, room air pulse ox is 93%, hemodynamically stable, afebrile, patient has been transitioned to oral anticoagulants in the form of Zarontin, heparin drip has been discontinued. Ultrasound Dopplers of lower extremities were negative for DVT. Lung sounds are clear, patient remains on empiric IV antibiotics for recent history of bilateral mastectomy, MARY drain is in place and draining small amount of serosanguineous output. No fever or chills, no hemoptysis, drainage from the MARY drain in the right breast showed presumptive staph aureus, final cultures pending On 12/02/2019 patient seen in follow-up on general medical floor, she is calm and comfortable, in no acute distress, her lung sounds are clear, she denies any shortness of breath, she has been transitioned to oral anticoagulation for pulmonary embolism currently on Xarelto. 0.9 normal saline rate of 20. Patient is on IV antibiotics, currently on Kefzol, vancomycin has been discontinued, wound culture was positive for MSSA. Objective - Vital Signs Vital signs: Vital Signs Temp 98.0 F 12/02/19 07:00 Pulse 81 12/02/19 07:00 Resp 16 12/02/19 07:00 BP 158/95 12/02/19 07:00 Pulse Ox 97 12/02/19 07:00 Intake & Output 12/01/19 12/02/19 12/02/19 18:59 06:59 18:59 Intake Total 2260 250 Output Total 50 55 10 Balance 2210 -55 240 Intake: Intake, IV Titration 1020 Amount Sodium Chloride 0.9% 1, 720 000 ml @ 100 mls/hr IV . Q10H [facility] Rx#:[id number] Vancomycin 1,000 mg In 250 Sodium Chloride 0.9% 250 ml @ 125 mls/hr IVPB Q12H [facility] Rx#:[id number] cefTRIAXone 1 gm In 50 Sodium Chloride 0.9% 50 ml @ 100 mls/hr IVPB Q12H [facility] Rx#:[id number] Oral 1240 250 Output: Drainage 50 55 10 Right Lateral Chest 50 55 10 Other: Voiding Method Toilet # Voids 2 1 # Bowel Movements 0 - Exam GENERAL EXAM: Alert, active, comfortable in no apparent distress. HEAD: Normocephalic/atraumatic. EYES: Normal reaction of pupils, equal size. Conjunctiva pink, sclera white. NOSE: Clear with pink turbinates. THROAT: No erythema or exudates. NECK: No masses, no JVD, no thyroid enlargement, no adenopathy. CHEST: Symmetrical expansion. Recent history of bilateral mastectomy, MARY drain is present in the right breast with small amount of serous output LUNGS: Equal air entry with no crackles, wheeze, rhonchi or dullness. CVS: Regular rate and rhythm, normal S1 and S2, no gallops, no murmurs, no rubs ABDOMEN: Soft, nontender. No hepatosplenomegaly, normal bowel sounds, no guarding or rigidity. EXTREMITIES: No clubbing, no edema, no cyanosis, 2+ pulses and upper and lower extremities. MUSCULOSKELETAL: Muscle strength and tone normal. SPINE: No scoliosis or deformity SKIN: No rashes CENTRAL NERVOUS SYSTEM: Alert and oriented -3. No focal deficits, tone is normal in all 4 extremities. PSYCHIATRIC: Alert and oriented -3. Appropriate affect. Intact judgment and insight. - Labs CBC & Chem 7: 12/02/19 06:18 12/02/19 06:18 Labs: Abnormal Lab Results - Last 24 Hours (Table) 12/02/19 Range/Units 06:18 RBC 3.47 L (3.80-5.40) m/uL Hgb 10.3 L (11.4-16.0) gm/dL Hct 31.5 L (34.0-46.0) % Microbiology - Last 24 Hours (Table) 11/30/19 11:36 Gram Stain - Final Breast - Right Wound Culture - Final Staphylococcus aureus 11/29/19 23:28 Blood Culture - Preliminary Blood No Growth after 48 hours 11/29/19 22:16 Urine Culture - Final Urine,Clean Catch Assessment and Plan Plan: Assessment: #1. Acute right lower lobe pulmonary emboli with associated pleurisy #2. Recent history of bilateral mastectomy for breast cancer in the left breast with insertion of breast implants #3. History of right breast cancer status post lumpectomy #4. Urinary tract infection #5. History of hypertension Plan: Continue Xarelto, antibiotics per ID service recommendations, from pulmonary perspective patient is stable, no pulmonary complaints, no chest pain, room air pulse ox is 97%, hemodynamically stable, patient is being considered for discharge home possibly tomorrow. Will need outpatient follow-up with Dr. Soto in the office in 2-3 weeks. I performed a history & physical examination of the patient and discussed their management with my nurse practitioner, Mandy Joseph. I reviewed the nurse practitioner's note and agree with the documented findings and plan of care. Lung sounds are positive for clear breath sounds. The findings and the impression was discussed with the patient. I attest to the documentation by the nurse practitioner. Time with Patient: Less than 30
[2019-12-02] MEDS: MORPHINE SULFATE 4 MG/ML SYRINGE IV PRN ×2 (15:54→23:02)
[2019-12-02] MEDS: ONDANSETRON 4 MG/2 ML VIAL IVP PRN (16:53)
--- NOTE | 2019-12-02 18:32 | PN ---
PROGRESS NOTE DATE OF SERVICE: 12/02/2019 REASON FOR FOLLOWUP: Possible right mastectomy site cellulitis. INTERVAL HISTORY: The patient is currently afebrile. The patient is feeling better. The patient is breathing comfortably. Pain to the right mastectomy site is improved. She is still having drainage from that site, but has improved. No nausea, no vomiting. No abdominal pain. No diarrhea. PHYSICAL EXAMINATION: Blood pressure 156/97, pulse of 91, temperature 98.3. She is 98% on room air. General description is a middle-aged female up in the bed in no distress. RESPIRATORY SYSTEM: Unlabored breathing with decreased breath sounds at the base. No wheeze. HEART: S1, S2. Regular rate and rhythm. ABDOMEN: Soft. No tenderness. EXTREMITIES: No edema of the feet. LABS: Hemoglobin 10.3, white count 7.4, creatinine 0.63. The right breast tube culture positive with MSSA, blood culture negative. Urine is negative. DIAGNOSTIC IMPRESSION AND PLAN: Patient admitted to hospital with multiple symptoms, including possible ulcer and she did have elevated white count, diagnosed with a pulmonary embolism in this patient who also has persistent drainage from the right mastectomy site with the culture to be showing MSSA. Case was discussed in detail with the surgeon and recommended removal of this drainage catheter, as it may be the source of further infection. Antibiotic was switched over to cefazolin 2 grams q.8 hours and we will monitor the clinical course closely. FREDL / BENEDICTN: [id number] / MTDD
[2019-12-03] MEDS: HYDROcodone/APAP 5-325MG 1 EACH TAB PO PRN ×3 (02:17→10:15)
[2019-12-03 02:18] VITALS: TEMP 98.2
[2019-12-03] MEDS: RIVAROXABAN 15 MG TAB PO SCH (07:18)
[2019-12-03] MEDS: PANTOPRAZOLE 40 MG TABLET PO SCH (07:18)
[2019-12-03 07:45] LABS: Basophils % (A) 0 %; Eosinophils # (A) 0.3 k/uL (0-0.7); Eosinophils % (A) 5 %; HCT 31.5 % (34.0-46.0); HGB 10.3 gm/dL (11.4-16.0); Lymphocytes # (A) 1.8 k/uL (1.0-4.8); Lymphocytes % (A) 31 %; MCH 29.3 pg (25.0-35.0); MCHC 32.8 g/dL (31.0-37.0); MCV 89.3 fL (80.0-100.0); Mean Platelet Volume 7.6; Monocytes # (A) 0.4 k/uL (0-1.0); Monocytes % (A) 6 %; Neutrophils # (A) 3.2 k/uL (1.3-7.7); Neutrophils % (A) 54 %; Platelet Count 310 k/uL (150-450); RBC 3.53 m/uL (3.80-5.40); RDW 12.9 % (11.5-15.5); WBC 5.8 k/uL (3.8-10.6)
[2019-12-03] MEDS: CHOLECALCIFEROL 1,000 UNIT TAB PO SCH (10:15)
[2019-12-03] MEDS: CYANOCOBALAMIN 500 MCG TAB PO SCH (10:18)
[2019-12-03] MEDS: ATENOLOL 25 MG TAB PO SCH (10:18)
[2019-12-03] MEDS: BUTALB/APAP/CAFF 50-325-40MG TAB PO PRN (10:19)
--- NOTE | 2019-12-03 13:05 | P.DS ---
Providers Date of admission: 11/30/19 01:10 Expected date of discharge: 12/03/19 Attending physician: Maryann Brewer MD Consults: 11/30/19 00:32 Consult Physician Stat Consulting Provider: Carlos Wood Consult Reason/Comments: R breast infection Do you want consulting provider notified?: Yes 11/30/19 00:37 Consult Physician Stat Consulting Provider: Zackary Tolbert Consult Reason/Comments: PE Do you want consulting provider notified?: Yes 11/30/19 10:23 Consult Physician Routine Consulting Provider: Breanne Ariza Consult Reason/Comments: Rt breast cellulitis, masectomy site Do you want consulting provider notified?: Yes Primary care physician: Peggy Yee [facility] Hospital Course: This is a 54-year-old female patient of Dr. Yee with past medical history of hypertension and breast cancer status post right breast lumpectomy followed by an abnormal mammogram on the left and subsequently underwent bilateral simple mastectomy and sentinel lymph node biopsy left breast with concurrent reconstruction by Dr. Wood and Dr. Tavarez on 10/27/2019. Patient states that she had the MARY drain on the left side removed shortly after surgery. She has been following with Dr. Tavarez on a weekly basis due to erythema and pain to the right breast. She has a MARY drain that has started draining a cloudy substance between a few days and one week ago. Patient states that last week for the entire week she was not feeling very well was feeling weak in general and then on Friday she started developing body aches, sweats and nausea. She was also feeling dizzy and lightheaded. She was having chills and cold sweats. She denies any black or bloody stools. Yesterday she states she was gasping for air and she had pain in her right shoulder and back. She got up to the bathroom and passed out and her carried her to the bed. Patient got up to get dressed and started vomiting. EMS was called and brought her into the hospital for evaluation. Patient was found to have leukocytosis of 20.6, hemoglobin was 12.7, platelet count 218. Sodium 135, potassium 4.2, chloride 105, CO2 22, BUN 18 creatinine 0.64, blood sugar 146. ALT 36. Urinalysis cloudy, protein 2+, leukoesterase large, WBC 152, bacteria rare. D-dimer was elevated at 2.5, lactic acid 0.7. EKG was a normal sinus rhythm with nonspecific T-wave abnormality. Heart rate was 87. Chest x-ray shows no active cardiopulmonary disease. Bilateral mastectomy. Normal heart. CTA of the chest showed evidence of multiple small emboli in the right lower lobe pulmonary artery. Mild pleural effusion. Basilar mild infiltrate and oriented lactose his right lower lobe. Patient was also found to have cellulitis of the right breast mastectomy site. Patient was started on Rocephin and heparin drip. Consult in place with pulmonary medicine, Dr. Wood and consult added for Dr. Ariza. Ultrasound of the bilateral lower extremities negative for DVT. 12/01: Patient has been seen by Drs. Wood and To. Vancomycin has been started. Cultures are in progress. Plan use to maintain MARY drain. Blood culture no growth at 24h. Patient is currently on Xarelto which was started yesterday afternoon. Xarelto is covered by her insurance. Patient has been seen by Dr. Tolbert. IVF will be discontinued. Patient states that she had a rough night due to pain control, right-sided chest pain, headache and nausea. Patient did not take pain medication on time and pain was out of control. She does not think the tramadol is effective. Tramadol has been changed to [place]. She is reaching 1000 ML's on incentive spirometry. Patient is been afebrile, blood pressure 124/77, heart rate 105, pulse ox 93% on room air. Repeat lab work reveals WBC 10.9, hemoglobin 10.4 and platelet count 205.. 12/02: Patient has been afebrile, blood pressure 158/95, pulse ox 97% on room air, heart rate 81. Previous blood pressure 133/79. Repeat blood work reveals white count of 7.4, hemoglobin 10.3, creatinine 0.63. Urine culture finalized as no growth at 18 hours. Blood culture no growth after 48 hours. Breast culture is presumptive staph aureus. 12/03: Wound culture was positive for MSSA and patient was changed to Kefzol yesterday by Dr. Ariza. He is recommended for discharge. Patient is verbalizing that she feels ready for discharge. She feels that she does need [place] for pain control which will be provided for 3 day course. She also is requesting Fioricet as she has been having headaches and this seems to help. Drainage from the right breast seems to be clearing. Maps performed with score of 460. Opioid start talking form has been completed with the patient. Patient will be discharged home today in stable condition. Discharge diagnoses: 1. SIRS and Sepsis secondary to acute pulmonary embolism and cellulitis right breast. 2. Acute pulmonary embolism. 3. Cellulitis right breast at mastectomy site. 4. Urinary tract infection. 5. Hypertension. 6. History of bilateral breast cancer status post simple bilateral mastectomy. Discharge plan: Return home Impression and plan of care have been directed as dictated by the signing physician. Maria Alejandra Fox nurse practitioner acting as scribe for signing physician. Patient Condition at Discharge: Good Plan - Discharge Summary Discharge Rx Participant: No New Discharge Prescriptions: New Rivaroxaban [Xarelto Starter Pack] 0 mg PO DIRECTED 30 Days #1 pack Baclofen 10 mg PO TID #9 tab HYDROcodone/APAP 5-325MG [[place] 5-325] 1 each PO Q4HR PRN #18 tab PRN Reason: MODERATE Pain Butalb/APAP/Caff 50-325-40Mg [Fioricet 50-325-40] 1 tab PO Q8HR PRN #9 tablet PRN Reason: Headache Cephalexin [Keflex] 500 mg PO Q6HR #40 cap Continue Atenolol 25 mg PO DAILY Cyanocobalamin [Vitamin B-12] 1,000 mcg PO DAILY Cholecalciferol (Vitamin D3) [Vitamin D3] 2,000 unit PO DAILY Discharge Medication List Atenolol 25 mg PO DAILY 08/26/19 [History] Cholecalciferol (Vitamin D3) [Vitamin D3] 2,000 unit PO DAILY 09/16/19 [History] Cyanocobalamin [Vitamin B-12] 1,000 mcg PO DAILY 09/16/19 [History] Rivaroxaban [Xarelto Starter Pack] 0 mg PO DIRECTED 30 Days #1 pack 11/30/19 [Rx] Baclofen 10 mg PO TID #9 tab 12/03/19 [Rx] Butalb/APAP/Caff 50-325-40Mg [Fioricet 50-325-40] 1 tab PO Q8HR PRN #9 tablet 12/03/19 [Rx] Cephalexin [Keflex] 500 mg PO Q6HR #40 cap 12/03/19 [Rx] HYDROcodone/APAP 5-325MG [[place] 5-325] 1 each PO Q4HR PRN #18 tab 12/03/19 [Rx] Follow up Appointment(s)/Referral(s): Carlos Wood MD [Medical Doctor] - 12/08/19 3:20 pm Siddharth Tavarez MD [STAFF PHYSICIAN] - 12/06/19 10:30 am Peggy Yee MD [Primary Care Provider] - 12/09/19 3:15 pm Zackary Tolbert DO [Doctor of Osteopathic Medicine] - 12/31/19 1:30 pm (Please bring your ID and insurance card with you to your appointment and please try to arrive 15 minutes early to fill out paperwork. Thank you.) Activity/Diet/Wound Care/Special Instructions: Xarelto filled at [facility] pharmacy - copay $35 - $10 copay card given to patient Discharge Disposition: HOME SELF-CARE
--- NOTE | 2019-12-03 13:56 | PN ---
PROGRESS NOTE DATE OF SERVICE: 12/03/2019 REASON FOR FOLLOWUP: Positive culture from the right mastectomy tube. INTERVAL HISTORY: The patient is currently afebrile. The patient is breathing comfortably. The patient denies pain to the right chest wall. No nausea, no vomiting. No abdominal pain and no diarrhea. PHYSICAL EXAMINATION: Blood pressure is 140/93 with a pulse of 90, temperature 98.2, she is 99% on room air. General description is a middle-aged female, up in the bed in no distress. RESPIRATORY SYSTEM: Unlabored breathing with decreased intensity of breath sounds, no wheeze. HEART: S1, S2. Regular rate and rhythm. ABDOMEN: Soft, no tenderness. LABS: Hemoglobin is 10.5, white count of 5.8. BUN of 18, creatinine 0.63. Blood culture has been negative. DIAGNOSTIC IMPRESSION AND PLAN: Patient admitted to the hospital with acute illness, possibly related PE. Patient also have a bilateral mastectomy in October and did have a chronic drainage from the right with a culture positive from the same showing MSSA with questionable significance. She is not running any fever. White count normalized. I had a detailed discussion with the plastic surgeon who recommend to keep the drain, not to elicit drainage less than 30 mL. Will give her prophylactic oral Keflex 500 mg every 6 hours for 10 days with close outpatient followup. MMODL / IJN: [id number] /
[2019-12-03 14:59] VITALS: BP 135/84; PULSE 72; RESP 15
--- NOTE | 2019-12-03 15:40 | P.PN ---
Subjective Progress Note Date: 12/03/19 Principal diagnosis: Right lower lobe pulmonary emboli with associated pleurisy On 12/01/2019 patient seen in follow-up on general medical floor, she is calm and comfortable, awake and alert, currently on room air, room air pulse ox is 93%, hemodynamically stable, afebrile, patient has been transitioned to oral anticoagulants in the form of Zarontin, heparin drip has been discontinued. Ultrasound Dopplers of lower extremities were negative for DVT. Lung sounds are clear, patient remains on empiric IV antibiotics for recent history of bilateral mastectomy, MARY drain is in place and draining small amount of serosanguineous output. No fever or chills, no hemoptysis, drainage from the MARY drain in the right breast showed presumptive staph aureus, final cultures pending On 12/02/2019 patient seen in follow-up on general medical floor, she is calm and comfortable, in no acute distress, her lung sounds are clear, she denies any shortness of breath, she has been transitioned to oral anticoagulation for pulmonary embolism currently on Xarelto. 0.9 normal saline rate of 20. Patient is on IV antibiotics, currently on Kefzol, vancomycin has been discontinued, wound culture was positive for MSSA. On 12/03/2019 patient seen in follow-up on general medical floor. She sitting up in bed, in no acute distress, lung sounds are clear, room air sats the 100%, hemodynamically stable, no fever or chills, she has been started on Xarelto, she remains on antibiotics in the form of Keflex for wound cultures positive for MSSA. His labs have been reviewed, showing white blood cell count of 5.8, hemoglobin of 10.3, the rest of the CBC was unremarkable. Blood and urine cult ures have shown no growth Objective - Vital Signs Vital signs: Vital Signs Temp 98.2 F 12/03/19 14:59 Pulse 72 12/03/19 14:59 Resp 15 12/03/19 14:59 BP 135/84 12/03/19 14:59 Pulse Ox 100 12/03/19 14:59 Intake & Output 12/02/19 12/03/19 12/03/19 18:59 06:59 18:59 Intake Total 375 375 Output Total 20 10 20 Balance 355 -10 355 Intake: Oral 375 375 Output: Drainage 20 10 20 Right Lateral Chest 20 10 20 Other: # Voids 2 1 3 - Exam GENERAL EXAM: Alert, active, comfortable in no apparent distress. HEAD: Normocephalic/atraumatic. EYES: Normal reaction of pupils, equal size. Conjunctiva pink, sclera white. NOSE: Clear with pink turbinates. THROAT: No erythema or exudates. NECK: No masses, no JVD, no thyroid enlargement, no adenopathy. CHEST: Symmetrical expansion. Recent history of bilateral mastectomy, MARY drain is present in the right breast with small amount of serous output LUNGS: Equal air entry with no crackles, wheeze, rhonchi or dullness. CVS: Regular rate and rhythm, normal S1 and S2, no gallops, no murmurs, no rubs ABDOMEN: Soft, nontender. No hepatosplenomegaly, normal bowel sounds, no guarding or rigidity. EXTREMITIES: No clubbing, no edema, no cyanosis, 2+ pulses and upper and lower extremities. MUSCULOSKELETAL: Muscle strength and tone normal. SPINE: No scoliosis or deformity SKIN: No rashes CENTRAL NERVOUS SYSTEM: Alert and oriented -3. No focal deficits, tone is normal in all 4 extremities. PSYCHIATRIC: Alert and oriented -3. Appropriate affect. Intact judgment and insight. - Labs CBC & Chem 7: 12/03/19 06:55 12/02/19 06:18 Labs: Abnormal Lab Results - Last 24 Hours (Table) 12/03/19 Range/Units 06:55 RBC 3.53 L (3.80-5.40) m/uL Hgb 10.3 L (11.4-16.0) gm/dL Hct 31.5 L (34.0-46.0) % Microbiology - Last 24 Hours (Table) 11/29/19 23:28 Blood Culture - Preliminary Blood No Growth after 72 hours Assessment and Plan Plan: Assessment: #1. Acute right lower lobe pulmonary emboli with associated pleurisy #2. Recent history of bilateral mastectomy for breast cancer in the left breast with insertion of breast implants #3. History of right breast cancer status post lumpectomy #4. Urinary tract infection #5. History of hypertension Plan: Anticipate discharge home today or tomorrow, continue oral Xarelto, no pulmonary complaints, vital signs are stable, room air pulse ox to 100%, antibiotics per ID service recommendations, increase activity as tolerated, follow-up with Dr. Tolbert in the office in 7-10 days I performed a history & physical examination of the patient and discussed their management with my nurse practitioner, Mandy Joseph. I reviewed the nurse practitioner's note and agree with the documented findings and plan of care. Lung sounds are positive for clear breath sounds. The findings and the impression was discussed with the patient. I attest to the documentation by the nurse practitioner. Time with Patient: Less than 30
--- NOTE | 2019-12-09 09:22 | CDI ---
Documentation Clarification Form Date: 12/09/2019 09:03:31 AM From: Ivone Gomez Phone: If you have a question about this query, please contact Eve Braun, Historical Interpreter at [phone] between 8am and 5pm. Admit Date: 11/30/2019 01:10:00 AM Patient Name: Flor Crews Visit Number: [id number] Discharge Date: 12/03/2019 03:33:00 PM ATTENTION: The Clinical Documentation Specialists (CDI) and [facility] Coding Staff appreciate your assistance in clarifying documentation. Please respond to the clarification below the line at the bottom and electronically sign. The CDI & [facility] Coding staff will review the response and follow-up if needed. Please note: Queries are made part of the Legal Health Record. If you have any questions, please contact the author of this message via ITS. Dr. Maryann Brewer Your patient has the documented diagnosis of MSSA cellulits mastectomy site and in ED notes there is documentation of infection of breast implant. Please clarify if the infection is a surgical wound infection from mastectomy or is the infection due to the implant. A relationship between diagnoses cannot be assumed unless documented as such by the attending physician. In order to capture the severity of condition; please document the relationship, if any, between these diagnoses. History/Risk Factors: hx of breast cancer with mastectomy and reconstruction with implant Clinical Indicators MSSA cellulitis: Treatment: IV antibiotics Please clarify and document your clinical opinion if this infection is due to: Mastectomy surgical wound Breast implant Other explanation of clinical findings (please specify) Unable to determine (no explanation for clinical findings) Mastectomy surgical wound MTDD
== END 2019-12-03 15:33 | disposition home or self-care (01) | DRG 862 ==
LOC: EC 22:44 → 3SCARD 11-30 01:10 → 4SSUR 11-30 21:25
PROVIDERS: ADMIT Internal Medicine; ATTEND Internal Medicine
DX: T81.49XA Infection following a procedure, other surgical site, initial encounter (principal); A41.01 Sepsis due to Methicillin susceptible Staphylococcus aureus; I26.99 Other pulmonary embolism without acute cor pulmonale; J90 Pleural effusion, not elsewhere classified; J98.11 Atelectasis; N39.0 Urinary tract infection, site not specified; T81.44XA Sepsis following a procedure, initial encounter; N61.0 Mastitis without abscess; Z85.3 Personal history of malignant neoplasm of breast; Z90.13 Acquired absence of bilateral breasts and nipples; F41.9 Anxiety disorder, unspecified; I10 Essential (primary) hypertension; K21.9 Gastro-esophageal reflux disease without esophagitis; Y83.1 Surgical operation with implant of artificial internal device as the cause of abnormal reaction of the patient, or of later complication, without mention of misadventure at the time of the procedure; Z79.01 Long term (current) use of anticoagulants; Z79.899 Other long term (current) drug therapy; Z82.49 Family history of ischemic heart disease and other diseases of the circulatory system; Z98.82 Breast implant status; Z98.51 Tubal ligation status; Z92.3 Personal history of irradiation; Z82.61 Family history of arthritis
CPT/HCPCS: 36415; 71046; 71275; 80053; 81001; 82565; 83605; 83735; 83880; 84484; 85025; 85379; 85610; 85730; 87040; 87070; 87077; 87086; 87186; 87205; 93005; 93970; 94760; 96361; 96365; 96367; 96375; 96376; 99285

== ENCOUNTER → 2019-12-15 | Outpatient (CLI) | payer OTHER ==
[2019-12-15 07:53] LABS: HCT 38.3 % (34.0-46.0); HGB 12.2 gm/dL (11.4-16.0); MCH 28.2 pg (25.0-35.0); MCHC 31.7 g/dL (31.0-37.0); MCV 88.8 fL (80.0-100.0); Mean Platelet Volume 7.1; RBC 4.31 m/uL (3.80-5.40); RDW 12.7 % (11.5-15.5); WBC 7.8 k/uL (3.8-10.6)
[2019-12-15 08:08] LABS: Platelet Count 622 k/uL (150-450)
[2019-12-15 10:55] LABS: Erythrocyte Sedimentation Rate 83 mm/hr (0-20)
[2019-12-15 11:26] LABS: Protein, Total 6.9 g/dL (6.2-8.2)
[2019-12-15 11:38] LABS: T4, Free (Free Thyroxine) 1.2 ng/dL (0.80-1.80)
[2019-12-15 11:43] LABS: African American GFR (CKD) 113.8 (60.0-200.0); Albumin 4.1 g/dL (3.80-4.90); Albumin/Globulin Ratio 1.46 (1.60-3.17); Anion Gap 9.1 mmol/L (4.00-12.00); BUN/Creat Ratio 24.29 Ratio (12.00-20.00); Calcium 9.5 mg/dL (8.7-10.3); Carbon Dioxide 25.9 mmol/L (21.6-31.8); Globulin 2.8 g/dL (1.6-3.3); Non-African American GFR(CKD) 98.2 (60.0-200.0); Potassium 4.3 mmol/L (3.5-5.5); Total Bilirubin 0.2 mg/dL (0.3-1.2); Total Protein 6.9 g/dL (6.2-8.2)
[2019-12-16 12:27] LABS: Albumin 3.28 g/dL (3.80-4.90); Gamma Globulin 1.25 g/dL (0.70-1.50)
== END | disposition home or self-care (01) ==
LOC: LABWHC1 07:10
PROVIDERS: ATTEND Family Medicine
DX: N61.0 Mastitis without abscess (principal); I26.99 Other pulmonary embolism without acute cor pulmonale
CPT/HCPCS: 36415; 80053; 82550; 82784; 82785; 84145; 84165; 84439; 84443; 85027; 85652; 86140

== ENCOUNTER 2019-12-19 19:14 | Emergency (ER) | payer OTHER ==
[2019-12-19] MEDS ORDERED: SODIUM CHLORIDE 0.9% 1,000 ML IV STA (19:45)
--- NOTE | 2019-12-19 19:45 | ED ---
SOB HPI - General Chief Complaint: Shortness of Breath Stated Complaint: SOB, rt sided pain Time Seen by Provider: 12/19/19 19:28 Source: patient, RN notes reviewed, old records reviewed Mode of arrival: ambulatory Limitations: no limitations - History of Present Illness Initial Comments: This is a 54-year-old female to the ER for evaluation of chest pain right-sided chest pain with severe shortness of breath, taking a deep breath into her right lung. Patient is recent diagnosis of PE in the right lung as her pain is worsening started tonight. Patient is on Devi which she hasn't taken as prescribed. No fevers no travel history no other pain, no cough and no trauma MD Complaint: shortness of breath -: days(s) Radiation: right arm Severity: moderate Severity scale (1-10): 7 Quality: throbbing Improves With: nothing Worsens With: nothing Context: recent URI Associated Symptoms: chest pain, pain with inspiration Treatments Prior to Arrival: none - Related Data Home Medications Medication Instructions Recorded Confirmed Atenolol 25 mg PO DAILY 08/26/19 11/30/19 Cholecalciferol (Vitamin D3) 2,000 unit PO DAILY 09/16/19 11/30/19 [Vitamin D3] Cyanocobalamin [Vitamin B-12] 1,000 mcg PO DAILY 09/16/19 11/30/19 Previous Rx's Medication Instructions Recorded Rivaroxaban [Xarelto Starter Pack] 0 mg PO DIRECTED 30 Days #1 pack 11/30/19 Baclofen 10 mg PO TID #9 tab 12/03/19 Butalb/APAP/Caff 50-325-40Mg 1 tab PO Q8HR PRN #9 tablet 12/03/19 [Fioricet 50-325-40] Cephalexin [Keflex] 500 mg PO Q6HR #40 cap 12/03/19 HYDROcodone/APAP 5-325MG [Schwertner 1 each PO Q4HR PRN #18 tab 12/03/19 5-325] Allergies Allergy/AdvReac Type Severity Reaction Status Date / Time No Known Allergies Allergy Verified 12/19/19 19:24 Review of Systems ROS Statement: Those systems with pertinent positive or pertinent negative responses have been documented in the HPI. ROS Other: All systems not noted in ROS Statement are negative. Past Medical History Past Medical History: Cancer, Hypertension Additional Past Medical History / Comment(s): Breast cancer status post right breast lumpectomy followed by an abnormal mammogram on the left and subsequently underwent bilateral simple mastectomy and sentinel lymph node biopsy left breast with concurrent reconstruction by Dr. Wood and Dr. Tavarez on 10/27/2019. History of Any Multi-Drug Resistant Organisms: None Reported Past Surgical History: Breast Surgery, Tubal Ligation Additional Past Surgical History / Comment(s): rt breast lumpectomy, double mastectomy Past Anesthesia/Blood Transfusion Reactions: Motion Sickness, Postoperative Nausea & Vomiting (PONV) Additional Past Anesthesia/Blood Transfusion Reaction / Comment(s): "takes me longer to wake up" Past Psychological History: No Psychological Hx Reported Smoking Status: Never smoker Past Alcohol Use History: Rare Past Drug Use History: None Reported - Past Family History Mother Family Medical History: Hypertension Additional Family Medical History / Comment(s): Mother is alive with only history of hypertension. Father Family Medical History: No Reported History Additional Family Medical History / Comment(s): Father is but she does not know any of his medical history. Brother(s) Additional Family Medical History / Comment(s): Patient has 1 brother with no major medical problems. Sister(s) Additional Family Medical History / Comment(s): Patient has one sister with hi story of SVT status post ablations and osteoarthritis with knee replacements. Patient has 2 children with no major medical problems. General Exam Limitations: no limitations General appearance: alert, in no apparent distress Head exam: Present: atraumatic, normocephalic, normal inspection Eye exam: Present: normal appearance, PERRL, EOMI. Absent: scleral icterus, conjunctival injection, periorbital swelling ENT exam: Present: normal exam, mucous membranes moist Neck exam: Present: normal inspection. Absent: tenderness, meningismus, lymphadenopathy Respiratory exam: Present: normal lung sounds bilaterally. Absent: respiratory distress, wheezes, rales, rhonchi, stridor Cardiovascular Exam: Present: regular rate, normal rhythm, normal heart sounds. Absent: systolic murmur, diastolic murmur, rubs, gallop, clicks GI/Abdominal exam: Present: soft, normal bowel sounds. Absent: distended, tenderness, guarding, rebound, rigid Extremities exam: Present: normal inspection, full ROM, normal capillary refill. Absent: tenderness, pedal edema, joint swelling, calf tenderness Back exam: Present: normal inspection Neurological exam: Present: alert, oriented X3, CN II-XII intact Psychiatric exam: Present: normal affect, normal mood Skin exam: Present: warm, dry, intact, normal color. Absent: rash Course Vital Signs 12/19/19 12/19/19 12/19/19 19:20 19:47 20:50 Temperature 98.3 F 98.7 F Pulse Rate 92 105 H 98 Respiratory 18 20 20 Rate Blood Pressure 155/106 156/94 O2 Sat by Pulse 100 95 95 Oximetry 12/19/19 12/19/19 12/19/19 21:00 22:00 23:00 Temperature Pulse Rate 95 88 89 Respiratory 20 20 20 Rate Blood Pressure 163/88 162/93 174/95 O2 Sat by Pulse 96 95 95 Oximetry 12/19/19 23:41 Temperature 98.7 F Pulse Rate 85 Respiratory 20 Rate Blood Pressure 165/92 O2 Sat by Pulse Oximetry - Reevaluation(s) Reevaluation #1: 12/19/19 19:45 Medical record is reviewed Patient reevaluation symptoms are improved with [id number] Tylenol Patiently no significant shortness of breath currently afebrile Medical Decision Making - Medical Decision Making 54 female presents today for evaluation of chest pain and right-sided chest. PE CTA of chest improved prior to prior CT, patient will continue outpatient scrotal motion Tylenol for pain, patient aware results okay for discharge - Lab Data Result diagrams: 12/19/19 20:00 12/19/19 20:00 Lab Results 12/19/19 12/19/19 12/19/19 Range/Units 20:00 20:00 20:00 WBC 12.0 H (3.8-10.6) k/uL RBC 4.40 (3.80-5.40) m/uL Hgb 12.3 (11.4-16.0) gm/dL Hct 37.8 (34.0-46.0) % MCV 86.0 (80.0-100.0) fL MCH 28.0 (25.0-35.0) pg MCHC 32.6 (31.0-37.0) g/dL RDW 12.9 (11.5-15.5) % Plt Count 471 H (150-450) k/uL Neutrophils % 76 % Lymphocytes % 16 % Monocytes % 5 % Eosinophils % 3 % Basophils % 1 % Neutrophils # 9.1 H (1.3-7.7) k/uL Lymphocytes # 1.9 (1.0-4.8) k/uL Monocytes # 0.5 (0-1.0) k/uL Eosinophils # 0.3 (0-0.7) k/uL Basophils # 0.1 (0-0.2) k/uL Sodium 136 L (137-145) mmol/L Potassium 4.6 (3.5-5.1) mmol/L Chloride 102 (98-107) mmol/L Carbon Dioxide 25 (22-30) mmol/L Anion Gap 9 mmol/L BUN 21 H (7-17) mg/dL Creatinine 0.72 (0.52-1.04) mg/dL Est GFR (CKD-EPI)AfAm >90 (>60 ml/min/1.73 sqM) Est GFR (CKD-EPI)NonAf >90 (>60 ml/min/1.73 sqM) Glucose 111 H (74-99) mg/dL Plasma Lactic Acid Wander 1.5 (0.7-2.0) mmol/L Calcium 9.6 (8.4-10.2) mg/dL Magnesium 2.0 (1.6-2.3) mg/dL Total Bilirubin 0.5 (0.2-1.3) mg/dL AST 30 (14-36) U/L ALT 19 (4-34) U/L Alkaline Phosphatase 108 (38-126) U/L Troponin I (0.000-0.034) ng/mL NT-Pro-B Natriuret Pep pg/mL Total Protein 7.9 (6.3-8.2) g/dL Albumin 4.0 (3.5-5.0) g/dL 12/19/19 12/19/19 Range/Units 20:00 20:00 WBC (3.8-10.6) k/uL RBC (3.80-5.40) m/uL Hgb (11.4-16.0) gm/dL Hct (34.0-46.0) % MCV (80.0-100.0) fL MCH (25.0-35.0) pg MCHC (31.0-37.0) g/dL RDW (11.5-15.5) % Plt Count (150-450) k/uL Neutrophils % % Lymphocytes % % Monocytes % % Eosinophils % % Basophils % % Neutrophils # (1.3-7.7) k/uL Lymphocytes # (1.0-4.8) k/uL Monocytes # (0-1.0) k/uL Eosinophils # (0-0.7) k/uL Basophils # (0-0.2) k/uL Sodium (137-145) mmol/L Potassium (3.5-5.1) mmol/L Chloride (98-107) mmol/L Carbon Dioxide (22-30) mmol/L Anion Gap mmol/L BUN (7-17) mg/dL Creatinine (0.52-1.04) mg/dL Est GFR (CKD-EPI)AfAm (>60 ml/min/1.73 sqM) Est GFR (CKD-EPI)NonAf (>60 ml/min/1.73 sqM) Glucose (74-99) mg/dL Plasma Lactic Acid Wander (0.7-2.0) mmol/L Calcium (8.4-10.2) mg/dL Magnesium (1.6-2.3) mg/dL Total Bilirubin (0.2-1.3) mg/dL AST (14-36) U/L ALT (4-34) U/L Alkaline Phosphatase (38-126) U/L Troponin I <0.012 (0.000-0.034) ng/mL NT-Pro-B Natriuret Pep 71 pg/mL Total Protein (6.3-8.2) g/dL Albumin (3.5-5.0) g/dL - EKG Data -: EKG Interpreted by Me (EKG shows sinus rhythm rate of 87, UT 124, QRS 92, QTC 462) - Radiology Data Radiology results: report reviewed (Chest x-rays negative for significant acute disease CTA is improved from prior CT), image reviewed Disposition Clinical Impression: Chest pain Disposition: HOME SELF-CARE Condition: Good Instructions (If sedation given, give patient instructions): Chest Pain (ED) Is patient prescribed a controlled substance at d/c from ED?: No Referrals: Peggy Yee MD [Primary Care Provider] - 1-2 days
[2019-12-19 19:49] VITALS: RESP 20; TEMP 98.7
[2019-12-19 20:30] LABS: Basophils # (A) 0.1 k/uL (0-0.2); Basophils % (A) 1 %; Eosinophils # (A) 0.3 k/uL (0-0.7); Eosinophils % (A) 3 %; HCT 37.8 % (34.0-46.0); HGB 12.3 gm/dL (11.4-16.0); Lymphocytes # (A) 1.9 k/uL (1.0-4.8); Lymphocytes % (A) 16 %; MCHC 32.6 g/dL (31.0-37.0); Mean Platelet Volume 7.5; Monocytes # (A) 0.5 k/uL (0-1.0); Monocytes % (A) 5 %; Neutrophils # (A) 9.1 k/uL (1.3-7.7); Neutrophils % (A) 76 %; Platelet Count 471 k/uL (150-450); RDW 12.9 % (11.5-15.5)
[2019-12-19 20:41] LABS: ALT 19 U/L (4-34); African American GFR (CKD) >90 (>60 ml/min/1.73 sqM); Anion Gap 9 mmol/L; Blood Urea Nitrogen 21 mg/dL (7-17); Calcium 9.6 mg/dL (8.4-10.2); Carbon Dioxide 25 mmol/L (22-30); Chloride 102 mmol/L (98-107); Glucose 111 mg/dL (74-99); Non-African American GFR(CKD) >90 (>60 ml/min/1.73 sqM); Sodium 136 mmol/L (137-145); Total Bilirubin 0.5 mg/dL (0.2-1.3); Total Protein 7.9 g/dL (6.3-8.2)
[2019-12-19 20:47] LABS: AST 30 U/L (14-36); Alkaline Phosphatase 108 U/L (38-126); Potassium 4.6 mmol/L (3.5-5.1)
--- NOTE | 2019-12-19 21:43 | XR ---
EXAMINATION TYPE: XR chest 2V DATE OF EXAM: 12/19/2019 COMPARISON: 11/29/2019 HISTORY: Syncope TECHNIQUE: FINDINGS: There is slight blunting right costophrenic angle. There is some coarsening of the lung mar kings. Heart and mediastinum are normal. There are bilateral breast implants. IMPRESSION: Small pleural effusion is new compared to last exam. No heart failure seen. Normal heart.
[2019-12-19] MEDS ORDERED: ACETAMINOPHEN TAB 325 MG TAB PO STA (22:46)
--- NOTE | 2019-12-19 22:53 | CT ---
EXAMINATION TYPE: CT angio chest DATE OF EXAM: 12/19/2019 COMPARISON: 11/29/2019 HISTORY: Right sided chest pain. History of PE after double mastectomy 12-19. CT DLP: 254 mGycm Automated exposure control for dose reduction was used. CONTRAST: Performed with IV Contrast, patient injected with 100 mL of Isovue 370. Multiple axial sections were obtained from the thoracic inlet to the diaphragm with intravenous contr ast. There are 3-D post processed images. FINDINGS: There is some right pleural effusion and right lower lobe interstitial infiltrate and atelectasis. He art size is normal. There is no pericardial effusion. There are no hilar masses. There is no mediasti nal adenopathy. There are bilateral breast implants. There is normal contrast opacification of the pulmonary arteries. I see no filling defect. Thoracic spine is intact without evidence of compression fracture. I see no bony destructive process. IMPRESSION: Right pleural effusion and right basilar atelectasis. This appears similar to last exam. There is annmarie aring of the right lower lobe pulmonary emboli compared to last exam. No evidence of new pulmonary em bolism.
[2019-12-19 23:42] VITALS: BP 165/92; PULSE 85
== END 2019-12-19 23:42 | disposition home or self-care (01) ==
LOC: EC 19:14
DX: R07.1 Chest pain on breathing (principal); R06.02 Shortness of breath; M79.601 Pain in right arm; I10 Essential (primary) hypertension; Z79.899 Other long term (current) drug therapy; Z85.3 Personal history of malignant neoplasm of breast; Z90.13 Acquired absence of bilateral breasts and nipples
CPT/HCPCS: 99285; 96360; 36415; 93005; 83880; 80053; 83605; 83735; 84484; 85025; 71046; 71275; Q9967

== ENCOUNTER → 2019-12-22 | Outpatient (CLI) | payer OTHER ==
[2019-12-22 07:51] LABS: Basophils # (A) 0.1 k/uL (0-0.2); Basophils % (A) 1 %; Eosinophils # (A) 0.2 k/uL (0-0.7); Eosinophils % (A) 2 %; HCT 37.6 % (34.0-46.0); Hypochromasia Slight; Lymphocytes # (A) 1.7 k/uL (1.0-4.8); Lymphocytes % (A) 18 %; MCH 28.3 pg (25.0-35.0); MCV 88.4 fL (80.0-100.0); Mean Platelet Volume 7.3; Monocytes # (A) 0.7 k/uL (0-1.0); Monocytes % (A) 7 %; Neutrophils # (A) 6.8 k/uL (1.3-7.7); Neutrophils % (A) 71 %; Platelet Count 418 k/uL (150-450); RBC 4.25 m/uL (3.80-5.40); RDW 12.8 % (11.5-15.5); WBC 9.6 k/uL (3.8-10.6)
[2019-12-22 10:08] LABS: Erythrocyte Sedimentation Rate 87 mm/hr (0-20)
[2019-12-22 11:03] LABS: African American GFR (CKD) 96.9 (60.0-200.0); Albumin/Globulin Ratio 1.43 (1.60-3.17); Anion Gap 9.6 mmol/L (4.00-12.00); BUN/Creat Ratio 18.75 Ratio (12.00-20.00); C Reactive Protein 14.6 mg/dL (0.0-0.8); Calcium 9.3 mg/dL (8.7-10.3); Carbon Dioxide 25.4 mmol/L (21.6-31.8); Globulin 2.8 g/dL (1.6-3.3); Non-African American GFR(CKD) 83.6 (60.0-200.0); Potassium 4.4 mmol/L (3.5-5.5); Total Bilirubin 0.4 mg/dL (0.3-1.2); Total Protein 6.8 g/dL (6.2-8.2)
== END | disposition home or self-care (01) ==
LOC: LABWHC1 07:08
PROVIDERS: ATTEND Family Medicine
DX: N61.0 Mastitis without abscess (principal); I26.99 Other pulmonary embolism without acute cor pulmonale; N60.09 Solitary cyst of unspecified breast
CPT/HCPCS: 36415; 80053; 84145; 85025; 85652; 86140

== ENCOUNTER 2020-01-04 06:00 | Day surgery (SDC) | payer OTHER ==
[2019-12-30 10:24] VITALS: BMI 28.3
[~2020-01-04 06:00] MED LIST changes: +DEXAMETHASONE SOD PHOSPHATE 10 MG/ML 1 ML VIAL IV ONE; +HYDROmorphone 0.5 MG/0.5 ML SYRINGE IVP PRN; +LACTATED RINGERS 1,000 ML IV SCH; +LIDOCAINE 1% 20 ML VIAL (10MG/ML) FOR IV START INTRADERMA PRN; -MIDAZOLAM 2 MG/2 ML VIAL IV PRN; +ONDANSETRON 4 MG/2 ML VIAL IVP ONE; +SCOPOLAMINE 1.5MG/72HR PATCH TRANSDERM ONE
[2020-01-04] MEDS ORDERED: MIDAZOLAM 2 MG/2 ML VIAL IV ONE (06:47)
[2020-01-04] MEDS ORDERED: LIDOCAINE 1% INJ 10MG/ML (20 ML MDV) ONE (07:32)
[2020-01-04] MEDS ORDERED: ROCURONIUM BROMIDE 10 MG/ML 5 ML VIAL IV ONE (07:32)
[2020-01-04] MEDS ORDERED: NEOSTIGMINE 1 MG/ML 10 ML VIAL ONE (07:32)
[2020-01-04] MEDS ORDERED: PROPOFOL 10 MG/ML 20 ML VIAL IV ONE (07:32)
[2020-01-04] MEDS ORDERED: GLYCOPYRROLATE 0.2 MG/ML 2 ML VIAL ONE (07:32)
[2020-01-04] MEDS ORDERED: fentaNYL (PF) 50 MCG/ML 2 ML AMP ONE (07:32)
[2020-01-04] MEDS ORDERED: ePHEDrine SULFATE/0.9% NACL/PF 50 MG/5 ML SYRINGE IV ONE (07:32)
[2020-01-04] MEDS ORDERED: SUCCINYLCHOLINE CHLORIDE 100 MG/5 ML SYR IV ONE (07:32)
[2020-01-04] MEDS ORDERED: MIDAZOLAM 2 MG/2 ML VIAL ONE (07:32)
[2020-01-04] MEDS ORDERED: ceFAZolin 1,000 MG VIAL IVPB ONE (07:53)
[2020-01-04] MEDS ORDERED: LACTATED RINGERS 1,000 ML IV ONE ×2 (08:19→09:20)
[2020-01-04 09:47] VITALS: RESP 16; TEMP 07.1
[2020-01-04] MEDS ORDERED: ONDANSETRON 4 MG/2 ML VIAL IVP ONE (09:52)
--- NOTE | 2020-01-04 11:02 | OP ---
OPERATIVE REPORT DATE OF SURGERY: 01/04/2020. SURGEON: Siddharth Tavarez MD PREOPERATIVE DIAGNOSES: 1. Pain. 2. Acquired loss right and left breast. 3. Personal history of breast cancer. POSTOPERATIVE DIAGNOSES: 1. Pain. 2. Acquired loss right and left breast. 3. Personal history of breast cancer. OPERATIVE PROCEDURES: 1. Removal of right breast tissue linux kernel developer without insertion of implant. 2. Revision right reconstructed breast. 3. Removal of left reconstructed breast tissue linux kernel developer without insertion of implant. 4. Revision left reconstructed breast. 5. Local tissue rearrangement, left breast via advancement flap, 85 cm2. OPERATIVE INDICATIONS: The patient is a 54-year-old female who has a history of breast cancer approximately 10 years ago and the patient underwent a right lumpectomy, axillary lymph node dissection, radiation treatment for breast cancer. She developed a second primary tumor diagnosed this fall involving the left breast, was referred to my care for breast reconstruction. At this time, the patient decided to proceed with mastectomy procedures in a bilateral fashion with immediate reconstruction via tissue expanders. This was coordinated with the patient's general surgeon, and the patient underwent surgery October 27, [address] Wood as her general surgeon performing the mastectomy procedures and sentinel lymph node excision followed by immediate reconstruction via tissue linux kernel developer placement. The patient's initial postoperative course was unremarkable and she was seen for postoperative followup approximately 1 week after surgery and then subsequently was seen in the Emergency Department for chest pain, shortness of breath and found to have a PE. She was admitted and her PE managed and she was placed on Xarelto then resumed outpatient convalescence. She was seen in further followup. The drains were removed. She was healing in standard fashion, but had problems with pain involving the right reconstructed breast, more so than the left, and ultimately due to persistent discomfort of the right reconstructed breast, significant asymmetry between the right left breast and complications from surgery has elected to proceed with removal of her tissue expanders at this time with further surgery involving the left breast to create better symmetry at this time. She does want to preserve the possibility for further breast reconstruction in the future. The patient's right breast had a history of radiation treatment and is postoperatively as a contracted firmer tissue. The left breast has a fair amount of redundant soft tissue and tissue that remains is sizable. The patient understands her potential risks and complications to the surgery including seroma, hematoma, wound infection, wound healing problems, among others. The risks profile is different between the right and left due to the history of radiation treatment. She also understands she will require drains and the exact date of drain removal cannot be stated at this time. The patient's surgery is being coordinated with her primary physician managing her Priscillato. She has been converted to Lovenox and has a postoperative Lovenox available as instructed by her physician and she has requested I perform today's surgery. OPERATIVE PROCEDURE SUMMARY: The patient is seen in the presurgical area, markings made, procedure reviewed. All questions answered. She is transported to the operating room where she was placed in supine position. Following induction of general tracheal anesthesia, the patient was prepped and draped in the usual fashion. The surgery is initiated on the right breast side. The scar from the mastectomy was outlined in a semi-elliptical fashion, creating an ellipse laterally but more rounded on the medial aspect so as the medial aspect could be closed in a pursestring style on the lateral aspect direct approximation. The incisions made with a 10 blade scalpel, removing the scar tissue including skin, subcutaneous tissue, down to muscle fascia. This was sent to pathology for permanent analysis. Skin subcutaneous tissue flaps were elevated off the underlying muscle flap layer by cautery dissection to decrease tension for closure once removed. The incision was made at the lateral aspect of the pectorals major muscle where it had been elevated previously exposing the linux kernel developer. This incision was made with cautery. The linux kernel developer was removed intact. The linux kernel developer cavity appeared normal with no granulation tissue. Small amount of fluid irrigation was performed in the linux kernel developer capsule was very thin at this time could not be dissected separately from tissue. However, cauterization was used to cauterize the surface of the expansion capsule layers to hopefully prevent a seroma. With this completed, additional irrigation is performed, further dissection was required to decrease tension, optimizing the closure. Once this revision was completed, the site was packed open with multiple laparotomy sponges. Attention is turned toward the left breast. The left breast has a significant amount of breast skin subcutaneous tissue that was redundant. This was marked preoperatively for excision in a similar fashion was done on the right: A greater magnitude. The medial aspect of the incision was circular with an elliptical-type tail to the lateral aspect of the incisions made using a 10 blade scalpel dividing skin full-thickness fashion using cautery to divide subcutaneous tissue into the region muscle fascia and then excising the scar redundant tissue off the fascia. This tissue was sent to pathology for permanent evaluation. Hemostasis maintained with cautery. The muscle flap layer was clearly identified. Skin subcutaneous tissue flaps elevated off this muscle flap layer to optimize redrape in for the procedure. Dissection was performed with cautery and hemostasis maintained with cautery. Extensive dissection was required for this. Next, the muscle flap was identified at the lateral aspect where it had been previously re- elevated, incision made, exposing the linux kernel developer. Construction Supervisor was removed intact. Again, the expansion cavity had clear shiny surface with no granulation tissue. No exudate. This expansion capsule was thin and could not be from the muscle flap layer or chest wall, but was cauterized as stated as done for the right side. Irrigation was performed. Hemostasis was excellent. This created a large open wound measuring 17 x 5 cm and could not be directly reapproximated as it was planned in this fashion to obtain a more symmetrical appearance between the right and left side of the patient's chest. The mastectomy site, inferiorly-based skin, subcutaneous tissue flap was elevated by continuing the dissection through the inframammary fold region to the upper abdominal wall. The flap created measured 17 x 5 cm2 and was curvilinear in nature but organized for cephalad based advancement. Once sufficient dissection completed, the flap elevated irrigations performed hemostasis maintained with cautery. A 19 round Ki drain inserted in the surgical field and brought in separate stab incision, left anterior lateral chest wall through this same drain site scar, sutured in place with 2- 0 Prolene. The skin and subcutaneous tissue flap was now advanced in a cephalad fashion and temporarily held at the skin level with tracie to allow for placing the deeper sutures of 4-0 Monocryl to initially position the flap followed by approximation of the deep dermis along the lateral portion the closure using inverted interrupted 4-0 Monocryl and then the medial portion of the closure was now approximated with the 2-0 Prolene deep dermal pursestring suture. With this completed, finer approximation of the dermis was completed in the medial section with interrupted inverted 4-0 Monocryl. Then completing the medial closure with tracie. The lateral closure was completed with running subcuticular 3-0 Prolene. The drain was connected to close bulb suction patent. Attention was turned towards the right mastectomy site closure on the dissection was much less than the side. Additional irrigation was performed. Hemostasis was excellent. A 19 round Ki drain inserted and brought separate stab incision right anterior lower chest wall through the patient's prior drain site scar and sutured in place with 2-0 Prolene. The mastectomy wound site was closed in similar fashion. Laterally, several interrupted tracie were placed at the skin layer to hold tension while deeper sutures were placed using 4-0 Monocryl. [place] removed in the deep dermis along the lateral aspect directly approximated with inverted interrupted 4- 0 Monocryl. The medial portion was closed in a deep dermal pursestring 2-0 Prolene suture fashion as done on the left and then finer approximation of the dermis completed with interrupted inverted 4-0 Monocryl tracie were used to complete the finer epidermal approximation on the right side with this. Then, the drain was connected to close bulb suction and patent. Surgical field was now cleansed with saline, dried, postoperative bandages placed, first placing one at sterile paper tape over the left lateral mastectomy repair subcuticular site. Then, Kerlix squares of secured with 3 Medipore tape in position size 3 mammary support. The patient was then awakened from her anesthetic, extubated, and transferred to recovery room in good condition stable vital signs. The estimated blood loss is 50 mL. There were no complications. MMODL / IJN: [id number] /
[2020-01-04] MEDS ORDERED: PROMETHAZINE INJ 25 MG/ML 1 ML VIAL IVPB ONE (12:32)
[2020-01-04 13:40] VITALS: BP 134/80; PULSE 90
[2020-01-04] MEDS ORDERED: HYDROcodone/APAP 5-325MG 1 EACH TAB PO ONE (13:56)
== END 2020-01-04 14:41 | disposition home or self-care (01) ==
LOC: OR 06:00
PROVIDERS: ATTEND Plastic Surgery
DX: Z45.812 Encounter for adjustment or removal of left breast implant (principal); Z45.811 Encounter for adjustment or removal of right breast implant; N64.4 Mastodynia; N64.89 Other specified disorders of breast; N60.11 Diffuse cystic mastopathy of right breast; N60.12 Diffuse cystic mastopathy of left breast; C50.912 Malignant neoplasm of unspecified site of left female breast; Z85.3 Personal history of malignant neoplasm of breast; Z90.13 Acquired absence of bilateral breasts and nipples; Z92.3 Personal history of irradiation; I10 Essential (primary) hypertension; Z79.01 Long term (current) use of anticoagulants; Z79.02 Long term (current) use of antithrombotics/antiplatelets; Z79.811 Long term (current) use of aromatase inhibitors; Z86.711 Personal history of pulmonary embolism; Z86.718 Personal history of other venous thrombosis and embolism; Z82.49 Family history of ischemic heart disease and other diseases of the circulatory system; Z79.899 Other long term (current) drug therapy
CPT/HCPCS: 19380; 11971; 14301; 14302; 88305; J2250; J1100; J2550; J2710; J2405; J0690; J2001; J3010; J0330; J2704; J1170

== ENCOUNTER → 2020-05-16 | Outpatient (CLI) | payer OTHER ==
--- NOTE | 2020-05-16 16:25 | BD ---
EXAMINATION TYPE: Axial Bone Density DATE OF EXAM: 05/16/2020 COMPARISON: NONE CLINICAL HISTORY: Height: 63 Weight: 167.0 FRAX RISK QUESTIONS: Alcohol (3 or more units per day): NO Family History (Parent hip fracture): NO Glucocorticoids (More than 3mos): NO (Ex: prednisone, prednisolone, methylprednisolone, dexamethasone, and hydrocortisone). History of Fracture in Adulthood: NO Secondary Osteoporosis: 1. Type 1 Diabetes: NO 2. Hyperthyroidism: NO 3. Menopause before 45: NO 4. Malnutrition: NO 5. Chronic liver disease: NO Rheumatoid Arthritis: NO Current Tobacco Use: NO RISK FACTORS HISTORY OF: Family History of Osteoporosis: NO Active: YES Diet low in dairy products/other sources of calcium: YES Postmenopausal woman: AGE 45 MEDICATIONS: Arimidex, atenolol Additional History: recurrent breast cancer patient EXAM MEASUREMENTS: Bone mineral densitometry was performed using the [employer] System. Bone mineral density as measured about the Lumbar spine is: ----- L1-L4(G/cm2): 1.073 T Score Values are as follows: ----- L2: -1.0 ----- L3: -0.6 ----- L4: -0.7 ----- L1-L4: -0.3 Bone mineral density has: decreased -1.7 % since study of: 11.30.2012 Bone mineral density about the R hip (g/cm2): 0.778 Bone mineral density about the L hip (g/cm2): 0.835 T Score values are as follows: -----R Neck: -1.9 -----L Neck: -1.5 -----R Total: -1.0 -----L Total: -0.9 Bone mineral density has: decreased -3.8 % since study of: 11.30.2012 IMPRESSION: Osteopenia (T Score between -2.5 and -1). There is slightly increased risk of fracture and the patient may be considered for treatment. Re-Screen 2-5 years. NOTE: T-SCORE=SD OF THE YOUNG ADULT MEAN.
== END | disposition home or self-care (01) ==
LOC: RADBDWWP 12:34
PROVIDERS: ATTEND Internal Medicine Hematology & Oncology
DX: M85.89 Other specified disorders of bone density and structure, multiple sites (principal); N95.9 Unspecified menopausal and perimenopausal disorder; Z79.890 Hormone replacement therapy
CPT/HCPCS: 77080

== ENCOUNTER 2020-06-13 08:42 | Day surgery (SDC) | payer OTHER ==
[2020-06-09 11:26] VITALS: BMI 28.7
[~2020-06-13 08:42] MED LIST changes: -DEXAMETHASONE SOD PHOSPHATE 10 MG/ML 1 ML VIAL IV ONE; -HYDROmorphone 0.5 MG/0.5 ML SYRINGE IVP PRN; -LIDOCAINE 1% 20 ML VIAL (10MG/ML) FOR IV START INTRADERMA PRN; -ONDANSETRON 4 MG/2 ML VIAL IVP ONE; -Pre Op ABX Message 1 EACH MISC MISCELLANE ONE; -SCOPOLAMINE 1.5MG/72HR PATCH TRANSDERM ONE
[2020-06-13 09:07] VITALS: TEMP 98.1
[2020-06-13] MEDS ORDERED: PROPOFOL 10 MG/ML 20 ML VIAL IV ONE (09:43)
[2020-06-13] MEDS ORDERED: MIDAZOLAM 2 MG/2 ML VIAL ONE (09:43)
[2020-06-13] MEDS ORDERED: fentaNYL (PF) 50 MCG/ML 2 ML AMP ONE (09:43)
--- NOTE | 2020-06-13 10:16 | P.PCN ---
Date of Procedure: 06/13/20 Description of Procedure: BRIEF HISTORY: Patient is a 54-year-old female presenting for outpatient colonoscopy for evaluation of genetic mutation. Patient with a known history of bilateral breast cancer she reports she has had genetic testing with her oncologist and was instructed to have screening. She reports her last colonoscopy was approximately 4 years ago. PROCEDURE PERFORMED: Colonoscopy with polypectomy. PREOPERATIVE DIAGNOSIS: Genetic mutation, last colonoscopy 4 years ago. ESTIMATED BLOOD LOSS: Minimal. IV sedation per Anesthesia. PROCEDURE: After informed consent was obtained, the patient, was brought into the endoscopy unit. IV sedation was administered by Anesthesia under continuous monitoring. Digital rectal examination was normal. Initially the Olympus CF-190 flexible video colonoscope was then inserted in the rectum, gradually advanced into the cecum without any difficulty. Careful examination was performed as the scope was gradually being withdrawn. Ileocecal valve and the appendiceal orifice were visualized and appeared normal. Prep was excellent. Mucosa of the cecum, ascending colon, transverse colon, descending colon, sigmoid colon, and rectum appeared normal. 2 diminutive polyps measuring 1-2 mm in length removed from the ascending colon and rectum with cold forcep polypectomy. Retroflexion was performed in the rectum and no lesions were seen. The patient tolerated the procedure well. IMPRESSION: 2 diminutive polyps removed with cold forcep from ascending colon and rectum. Otherwise, normal-appearing colon from rectum to cecum. RECOMMENDATIONS: Findings of this examination were discussed with the patient. Okay to resume diet. Okay to resume medications. Await pathology from polypectomies. Patient is unclear of the genetic mutation, repeat colonoscopy would be contingent on what this mutation is and will defer to recommendation of the oncology service.
[2020-06-13 10:20] VITALS: RESP 16
[2020-06-13 10:38] VITALS: BP 110/65; PULSE 73
== END 2020-06-13 11:08 | disposition home or self-care (01) ==
LOC: ORWHC2ENDO 08:42
PROVIDERS: ATTEND Internal Medicine
DX: Z12.11 Encounter for screening for malignant neoplasm of colon (principal); K63.5 Polyp of colon; K62.1 Rectal polyp; C50.911 Malignant neoplasm of unspecified site of right female breast; C50.912 Malignant neoplasm of unspecified site of left female breast; Z90.13 Acquired absence of bilateral breasts and nipples; Z15.89 Genetic susceptibility to other disease; I10 Essential (primary) hypertension; Z79.811 Long term (current) use of aromatase inhibitors; Z79.899 Other long term (current) drug therapy
CPT/HCPCS: 88305; 45380; J2250; J3010; J2704

== ENCOUNTER → 2020-10-27 | Outpatient (CLI) | payer OTHER ==
[2020-10-27 07:42] LABS: Basophils % (A) 1 %; Eosinophils # (A) 0.1 k/uL (0-0.7); Eosinophils % (A) 2 %; HCT 40.3 % (34.0-46.0); HGB 13.1 gm/dL (11.4-16.0); Lymphocytes # (A) 1.8 k/uL (1.0-4.8); Lymphocytes % (A) 32 %; MCH 28.5 pg (25.0-35.0); MCHC 32.6 g/dL (31.0-37.0); MCV 87.6 fL (80.0-100.0); Mean Platelet Volume 7.7; Monocytes # (A) 0.2 k/uL (0-1.0); Monocytes % (A) 4 %; Neutrophils # (A) 3.4 k/uL (1.3-7.7); Neutrophils % (A) 60 %; Platelet Count 263 k/uL (150-450); RDW 13.7 % (11.5-15.5); WBC 5.7 k/uL (3.8-10.6)
[2020-10-27 12:09] LABS: African American GFR (CKD) 96.2 (60.0-200.0); Albumin 4.4 g/dL (3.80-4.90); Albumin/Globulin Ratio 1.57 (1.60-3.17); Anion Gap 6.9 mmol/L (4.00-12.00); C Reactive Protein 0.9 mg/dL (0.0-0.8); Calcium 10.2 mg/dL (8.7-10.3); Carbon Dioxide 29.1 mmol/L (21.6-31.8); Chol/HDL Ratio 3.86; Globulin 2.8 g/dL (1.6-3.3); LDL Cholesterol,Calculated 164.8 mg/dL (0.0-131.0); Potassium 4.5 mmol/L (3.5-5.5); Total Bilirubin 0.4 mg/dL (0.3-1.2); Total Protein 7.2 g/dL (6.2-8.2); Uric Acid 6.3 mg/dL (2.9-7.7); VLDL Calculation 18.2 mg/dL (5.00-40.00)
[2020-10-27 12:21] LABS: Erythrocyte Sedimentation Rate 32 mm/hr (0-20)
[2020-10-27 13:27] LABS: Cancer Antigen 125 13.3 U/mL (0.0-30.1)
== END | disposition home or self-care (01) ==
LOC: LABWHC1 07:07
PROVIDERS: ATTEND Family Medicine
DX: C50.211 Malignant neoplasm of upper-inner quadrant of right female breast (principal); E78.5 Hyperlipidemia, unspecified; Z86.711 Personal history of pulmonary embolism; E56.9 Vitamin deficiency, unspecified
CPT/HCPCS: 36415; 80053; 80061; 82306; 82550; 82607; 83090; 83615; 83695; 84443; 84550; 85025; 85652; 86140; 86304

== ENCOUNTER → 2021-12-19 | Outpatient (CLI) | payer OTHER ==
--- NOTE | 2021-12-19 13:48 | XR ---
EXAMINATION TYPE: XR chest 2V DATE OF EXAM: 12/19/2021 COMPARISON: 12/19/2019 HISTORY: Shortness of breath TECHNIQUE: Frontal and lateral views of the chest are obtained. FINDINGS: Scattered senescent parenchymal changes noted. Hyperinflation compatible with COPD. No evidence for infiltrate. No evidence for atelectasis. Heart size is stable. Mediastinal structures are stable and grossly unremarkable. No evidence for hilar prominence. Degenerative changes dorsal spine. IMPRESSION: 1. No evidence for acute pulmonary disease.
== END | disposition home or self-care (01) ==
LOC: RADXRMAIN 13:20
PROVIDERS: ATTEND Nurse Practitioner Family
DX: R06.02 Shortness of breath (principal)
CPT/HCPCS: 71046

== ENCOUNTER → 2022-06-07 | Outpatient (CLI) | payer OTHER ==
--- NOTE | 2022-06-10 09:19 | BD ---
EXAMINATION TYPE: Axial Bone Density DATE OF EXAM: 06/07/2022 COMPARISON: NONE CLINICAL HISTORY: 56 years year old Female. ICD-10 CODE: Z79.890 hormone replacement therapy Height: 64 Weight: 162 FRAX RISK QUESTIONS: Alcohol (3 or more units per day): NO Family History (Parent hip fracture): NO Glucocorticoids (More than 3mos): NO History of Fracture in Adulthood: NO Secondary Osteoporosis: 1. Type 1 Diabetes: NO 2. Hyperthyroidism: NO 3. Menopause before 45: YES 4. Malnutrition: NO 5. Chronic liver disease: NO Rheumatoid Arthritis: NO Current Tobacco Use: NO RISK FACTORS HISTORY OF: Hip Fracture (Right/Left): NO Spine Fracture: NO History of Wrist Fracture: NO Surgery to Spine/Hip(right/left)/Wrist (right/left): NO Family History of Osteoporosis: NO Active: YES Diet low in dairy products/other sources of calcium: YES Postmenopausal woman: YES Take estrogen and/or progesterone medications: NO Lost more than 2 inches in height since high school: NO Frequent falls: NO Poor Health: NO Hyperparathyroidism: NO Adrenal Insufficiency: NO MEDICATIONS: Prednisone or other steroids: NO Thyroid Medications: NO Osteoporosis Medications: NO Additional Medications: ANASTRAZOLE, ATTENOLL, MULTI VIT., VIT D Additional History: BREAST CANCER TWO TIMES EXAM MEASUREMENTS: Bone mineral densitometry was performed using the [employer] System. Bone mineral density as measured about the Lumbar spine is: ----- L1-L4(G/cm2): 0.989 T Score Values are as follows: ----- L1: -2.0 ----- L2: -1.6 ----- L3: -1.4 ----- L4: -1.6 ----- L1-L4: -1.6 2019 STUDY IS NOT AVAILABLE FOR COMPARISON. Bone mineral density about the R hip (g/cm2): 0.778 Bone mineral density about the L hip (g/cm2): 0.825 T Score values are as follows: -----R Neck: -1.9 -----L Neck: -1.5 -----R Total: -1.1 -----L Total: -0.9 2019 STUDY IS NOT AVAILABLE FOR COMPARISON. FRAX%s: The graph provided illustrates a 8.0% chance for a major osteoporotic fx and a 0.9% chance fo r the hips probability for fx in 10 years time. IMPRESSION: Osteopenia (T Score between -2.5 and -1). There is slightly increased risk of fracture and the patient may be considered for treatment. Re-Screen 2-5 years. NOTE: T-SCORE=SD OF THE YOUNG ADULT MEAN.
== END | disposition home or self-care (01) ==
LOC: RADBDWWP 16:28
PROVIDERS: ATTEND Internal Medicine Hematology & Oncology
DX: M85.89 Other specified disorders of bone density and structure, multiple sites (principal); Z79.890 Hormone replacement therapy
CPT/HCPCS: 77080

== ENCOUNTER → 2023-10-01 | Outpatient (CLI) | payer BC ==
--- NOTE | 2023-10-01 14:50 | NM ---
EXAMINATION TYPE: NM bone scan whole body DATE OF EXAM: 10/01/2023 COMPARISON: NONE CLINICAL INDICATION: Female, 58 years old with history of C50.211 BREAST CANCER; Technique: Delayed whole-body scanning was performed following the injection of 22.6 mCi Tc 99m MDP. Images acquired 5.5 hours post injection. FINDINGS: Some degenerative tracer activity at the right first MTP joint. No suspicious distribution of tracer to suggest metastatic disease to the bone. IMPRESSION: No scintigraphic evidence for osseous metastatic disease.
== END | disposition home or self-care (01) ==
LOC: RADNMMAIN 07:21
PROVIDERS: ATTEND Internal Medicine Hematology & Oncology
DX: C50.211 Malignant neoplasm of upper-inner quadrant of right female breast (principal); C50.412 Malignant neoplasm of upper-outer quadrant of left female breast; M85.9 Disorder of bone density and structure, unspecified; Z84.81 Family history of carrier of genetic disease
CPT/HCPCS: 78306; A9503

== ENCOUNTER → 2024-03-26 | Outpatient (CLI) | payer BC ==
--- NOTE | 2024-03-26 13:14 | MR ---
EXAMINATION TYPE: MR lumbar spine wo/w con DATE OF EXAM: 03/26/2024 6:58 AM COMPARISON: NONE HISTORY: Lower back pain, right side. Hx breast cancer. CONTRAST: The patient was injected with 7 mL intravenous Gadavist gadolinium contrast. Multiplanar, MultiSpin echo imaging of the lumbar spine was performed. L1-L2: Normal disc appearance without desiccation. No herniation, protrusion or disc bulging. No ca nal stenosis is present. Foramina are patent bilaterally. Small L1 hemangioma. L2-L3: Normal disc appearance without desiccation. No herniation, protrusion or disc bulging. No ca nal stenosis is present. Foramina are patent bilaterally. L3-L4: Normal disc appearance without desiccation. No herniation, protrusion or disc bulging. No ca nal stenosis is present. Foramina are patent bilaterally. L4-L5: Mild disc desiccation and minimal posterior disc bulge. Minimal effacement ventral thecal sac. No evidence of herniation or central stenosis. No lateral recess stenosis or foraminal encroachment. L4 hemangioma. L5-S1: Moderate disc desiccation posterior disc bulge. There is no resultant mild sided foraminal enc roachment. Degenerative endplate marrow change. Lumbar segments are intact. No enhancing lesions are present. No paraspinal masses are identified. Conus medullaris has a normal appearance. IMPRESSION: 1. No enhancing lesions present. 2. Degenerative disc disease and disc bulging at all for 5 and L5-S1 as discussed.
== END ==
LOC: RADMRIMAIN 05:59
PROVIDERS: ATTEND Internal Medicine Hematology & Oncology
DX: C50.211 Malignant neoplasm of upper-inner quadrant of right female breast (principal); M51.37 Other intervertebral disc degeneration, lumbosacral region
CPT/HCPCS: 72158; A9585

== ENCOUNTER → 2024-07-29 | Outpatient (CLI) | payer BC ==
--- NOTE | 2024-08-09 21:36 | BD ---
EXAMINATION TYPE: Axial Bone Density DATE OF EXAM: 07/29/2024 CLINICAL HISTORY: 58 years old Female. ICD-10 CODE: M85.9 DISORDER OF BONE DENSITY AND STRUCTURE, UN SP Height: 63.5 Weight: 159.6 FRAX RISK QUESTIONS: Alcohol (3 or more units per day): no Family History (Parent hip fracture): no Glucocorticoids (More than 3mos): no (Ex: prednisone, prednisolone, methylprednisolone, dexamethasone, and hydrocortisone). History of Fracture in Adulthood: no Secondary Osteoporosis: 1. Type 1 Diabetes: no 2. Hyperthyroidism: no 3. Menopause before 45: yes 4. Malnutrition: no 5. Chronic liver disease: no Rheumatoid Arthritis: no Current Tobacco Use: no RISK FACTORS HISTORY OF: Hip Fracture (Right/Left): no Spine Fracture: no History of Wrist Fracture: no Surgery to Spine/Hip(right/left)/Wrist (right/left): no MEDICATIONS: Thyroid Medications: no Osteoporosis Medications: Prolia past 1.5 years EXAM MEASUREMENTS: Bone mineral densitometry was performed using the [employer] System. Bone mineral density as measured about the Lumbar spine is: ----- L1-L4(G/cm2): 1.073 T Score Values are as follows: ----- L1: -1.7 ----- L2: -1.0 ----- L3: -0.4 ----- L4: -0.7 ----- L1-L4: -0.9 Z Score -0.9Values are as follows: ----- L1: -0.9 ----- L2: -0.2 ----- L3: 0.5 ----- L4: 0.2 ----- L1-L4: 0.0 Bone mineral density has: increased 8.3 % since study of: 06/07/2022 Bone mineral density about the R hip (g/cm2): 0.946 Bone mineral density about the L hip (g/cm2): 0.953 T Score values are as follows: -----R Neck: -1.5 -----L Neck: -1.1 -----R Total: -0.5 -----L Total: -0.4 Z Score values are as follows: -----R Neck: -0.5 -----L Neck: -0.1 -----R Total: 0.2 -----L Total: 0.2 Bone mineral density has: increased 7.4 % since study of: 06/07/2022 FRAX%s: The graph provided illustrates a 7.7% chance for a major osteoporotic fx and a 0.6% chance fo r the hips probability for fx in 10 years time. IMPRESSION: Osteopenia (T Score between -2.5 and -1). There is slightly increased risk of fracture and the patient may be considered for treatment. Re-Screen 2-5 years. NOTE: T-SCORE=SD OF THE YOUNG ADULT MEAN. [facility], , 08/09/2024 9:33 PM
== END | disposition home or self-care (01) ==
LOC: RADBDWWP 07:15
PROVIDERS: ATTEND Internal Medicine Hematology & Oncology
DX: M85.9 Disorder of bone density and structure, unspecified
CPT/HCPCS: 77080